=== PATIENT | female | born 1935 ===

== ENCOUNTER 2017-06-12 21:06 | Inpatient (IN) | payer MEDICAID ==
[2017-06-12 21:08] VITALS: BMI 17.9
[2017-06-12 21:36] LABS: BASO # 0.1 K/uL (0.0-0.2); BASO % 0.5 % (0.0-2.0); EOS # 0.8 K/uL (0.0-0.7); EOS % 7.7 % (0.0-4.0); LYMPH # 1.2 K/uL (1.0-4.3); MEAN CELL VOLUME 86.2 fl (81.0-99.0); MEAN CORPUSCULAR HGB CONC 31.3 g/dL (33.0-37.0); MONO # 1.4 K/uL (0.0-0.8); MONO % 13.6 % (0.0-10.0); NEUT # 6.7 K/uL (1.8-7.0); NEUT % 66.2 % (50.0-75.0); NRBC % 0.1 % (0.0-0.0); RED CELL DISTRIBUTION WIDTH 22.6 % (11.5-14.5); WHITE BLOOD COUNT 10.1 K/uL (4.8-10.8)
[2017-06-12 21:37] LABS: VENOUS BLOOD GAS BASE EXCESS 11.5 mmol/L (0.0-2.0); VENOUS BLOOD GAS PCO2 51 mmHg (40-60); VENOUS BLOOD PH 7.47 (7.32-7.43)
[2017-06-12] MEDS ORDERED: Vancomycin 1 gm/NS 200 ml 1 GM/200 ML BAG IVPB STA (21:49)
[2017-06-12] MEDS ORDERED: Gentamicin 80mg/50ml NS 80 MG/50 ML BAG IVPB STA (21:50)
[2017-06-12 21:56] LABS: PARTIAL THROMBOPLASTIN TIME 26.5 Seconds (25.6-37.1)
--- NOTE | 2017-06-12 22:01 | ED PDOC ---
HPI: Altered Mental Status Time Seen by Provider: 06/12/17 21:11 Chief Complaint (Nursing): Weakness/Neurological Deficit Chief Complaint (Provider): Weakness, confused History Per: Family (grandson) History/Exam Limitations: Clinical Condition (dementia) Onset/Duration Of Symptoms: Unknown Onset Of Symptoms: Cannot Confirm Onset Current Symptoms Are (Timing): Still Present Description Of Symptoms: Confused Associated Symptoms: Confused, Weakness Additional Complaint(s): The patient is a 82yo - female, with history of chronic kidney disease, end stage renal failure currently on dialysis on Monday, and Monday, TTP, CHF, arthritis, presents to the ED via EMS for evaluation of weakness and confusion. Prior charts reviewed and patient was recently discharged from [facility] after a 3 month stay. A HPI and ROS is unavailable from the patient due to her confused state as well as a history of dementia. Patient's grandson serves as primary historian and he reports the patient has been confused, weak and complaining of vague discomfort to her legs. She has a gastrostomy tube in place but has poor appetite; grandson reports noticing the patient has tactile fever and occasional cough but denies any vomiting or diarrhea. Grandson offers no other complaints. Past Medical History Reviewed: Historical Data, Nursing Documentation, Vital Signs Vital Signs: Last Vital Signs Temp 99.7 F H 06/12/17 21:52 Pulse 102 H 06/12/17 21:52 Resp 18 06/12/17 21:52 BP 139/79 06/12/17 21:52 Pulse Ox 98 06/12/17 21:52 - Medical History PMH: Anemia, Arthritis, CHF, Dementia, HTN, Peripheral Edema, End Stage Renal Disease, Chronic Kidney Disease - Surgical History Other surgeries: dialysis catheter - Family History Family History: States: No Known Family Hx, Unknown Family Hx - Living Arrangements Living Arrangements: With Family - Immunization History Hx Tetanus Toxoid Vaccination: No Hx Influenza Vaccination: No Hx Pneumococcal Vaccination: No - Home Medications Home Medications: Ambulatory Orders Medication Instructions Recorded Carboxymethylcellulose Sodium 1 drop OU QID 02/05/17 [Thera Tears] Latanoprost 0.005% Opht [Xalatan 1 drop OU DAILY 02/05/17 Opht] Mag&Al/Simet/Diphen/Lido [First 5 ml PO QID kit 03/01/17 Magic Mouthwash] Epoetin Tyrell [Procrit] 10,000 unit IV TTS ml 06/07/17 Paricalcitol [Zemplar] 1 mcg IV TTS ml 06/07/17 Aspirin [Aspirin Chewable] 81 mg PEG DAILY #30 ctb 06/09/17 Lisinopril [Prinivil] 5 mg PEG DAILY #30 tablet 06/09/17 Pantoprazole [Protonix] 40 mg PO DAILY #30 packet 06/09/17 - Allergies Allergies/Adverse Reactions: Allergies Allergy/AdvReac Type Severity Reaction Status Date / Time No Known Allergies Allergy Verified 03/04/17 01:13 Review of Systems Review Of Systems: ROS cannot be obtained secondary to pt's inabilty to answer questions. (ROS obtained from patient's grandson) Constitutional: Positive for: Weakness Gastrointestinal: Positive for: Other (decreased appetite). Negative for: Vomiting, Diarrhea Musculoskeletal: Positive for: Leg Pain Physical Exam - Reviewed Nursing Documentation Reviewed: Yes Vital Signs Reviewed: Yes - Physical Exam Appears: Positive for: No Acute Distress Head Exam: Positive for: ATRAUMATIC, NORMAL INSPECTION, NORMOCEPHALIC Skin: Positive for: Warm, Dry. Negative for: Diaphoresis Eye Exam: Positive for: Normal appearance Neck: Positive for: Supple Cardiovascular/Chest: Positive for: Tachycardia Respiratory: Positive for: Normal Breath Sounds. Negative for: Respiratory Distress Gastrointestinal/Abdominal: Positive for: Soft. Negative for: Tenderness Back: Positive for: Normal Inspection Extremity: Positive for: Normal ROM, Swelling (mild edema and warmth noted to left knee) Neurologic/Psych: Positive for: Alert, Oriented (x 1). Negative for: Motor/ Sensory Deficits - Laboratory Results Result Diagrams: 06/12/17 21:33 06/12/17 22:04 - ECG ECG: Positive for: Interpreted By Me, Viewed By Me ECG Rhythm: Positive for: Sinus Tachycardia, Left Bundle Branch Block Rate: 101 (at 21:43) O2 Sat by Pulse Oximetry: 98 (RA) Pulse Ox Interpretation: Normal Medical Decision Making Medical Decision Making: Time: 2117 Impression: 82yo female with weakness, confusion Plan: -- Labs -- EKG -- Gentamicin 80mg/50ml NS IVPB -- Vancomycin 1000mg/200 ml NS IVPB Reassess Time: 23:45 --Labs and XRay were viewed and showed no clinically significant abnormalities. --Patient does not meet criteria for sepsis but on provider's opinion she will be admitted for possible sepsis considering risk factors including recent hospital visit and dialysis catheter --Patient has remained hemodynamically stable and afebrile since arrival to ED. --Case was discussed with Dr. Mahoney who is covering Dr. Morel's patients. Clinical Impression: Sepsis and dialysis patient Condition: Fair Scribe Attestation: Documented by La As[place] and Yo Carrasquillo acting as a scribe for Herrera Feliz MD. Provider Attestation: All medical record entries made by the Scribe were at my direction and personally dictated by me. I have reviewed the chart and agree that the record accurately reflects my personal performance of the history, physical exam, medical decision making, and the department course for this patient. I have also personally directed, reviewed, and agree with the discharge instructions and disposition. Disposition - Clinical Impression Clinical Impression: Sepsis, ESRD (end stage renal disease) on dialysis - Patient ED Disposition Is Patient to be Admitted: Yes Discussed With : Sher Mahoney Doctor Will See Patient In The: Hospital Counseled Patient/Family Regarding: Studies Performed, Diagnosis, Need For Followup, Rx Given - Disposition Disposition Time: 23:45 Condition: FAIR - Pt Status Changed To: Hospital Disposition Of: Inpatient - Admit Certification Admit to Inpatient:: After my assessment, the patient will require hospitalization for at least two midnights. This is because of the severity of symptoms shown, intensity of services needed, and/or the medical risk in this patient being treated as an outpatient. - POA Present On Arrival: Pressure Ulcer Addendum Addendum: 06/13/17 01:52 --Patient noted to have stage 1/stage 2 sacral cubidal breakdown of the skin
[2017-06-12 22:12] LABS: ALB/GLOB RATIO 0.9 (1.0-2.1); BILIRUBIN,TOTAL 0.5 mg/dl (0.2-1.3); CALCIUM 9.6 mg/dL (8.4-10.2); URIC ACID 3.6 mg/Dl (2.2-7.5)
[2017-06-12 22:16] LABS: POTASSIUM 4.4 MMOL/L (3.6-5.0)
--- NOTE | 2017-06-13 08:00 | CARD ---
APPROVED REPORT EKG Measurement Heart [id number] <Conclusion> Sinus tachycardia Possible Left atrial enlargement Left axis deviation Left bundle branch block Abnormal ECG
--- NOTE | 2017-06-13 09:46 | RAD ---
HISTORY: AMS COMPARISON: No prior. FINDINGS: The right-sided dual lumen central venous catheter terminates in the SVC. LUNGS: The lungs are well inflated. There is mild pulmonary venous congestion PLEURA: No significant pleural effusion identified, no pneumothorax apparent. CARDIOVASCULAR: Normal. OSSEOUS STRUCTURES: No significant abnormalities. VISUALIZED UPPER ABDOMEN: Normal. OTHER FINDINGS: None. IMPRESSION: Mild pulmonary venous congestion.
[2017-06-13] MEDS: Artificial Tears Opht Soln OU SCH ×4 (10:00→21:47)
[2017-06-13] MEDS: Mag&Al/Simet/Diphen/Lido 237 ML KIT PO SCH ×4 (10:00→21:46)
[2017-06-13 12:29] LABS: HEMATOCRIT 35.7 % (34.0-47.0); MEAN CELL VOLUME 86.2 fl (81.0-99.0); MEAN CORPUSCULAR HEMOGLOBIN 26.4 pg (27.0-31.0); MEAN CORPUSCULAR HGB CONC 30.6 g/dL (33.0-37.0); RED CELL DISTRIBUTION WIDTH 21.8 % (11.5-14.5); WHITE BLOOD COUNT 10.1 K/uL (4.8-10.8)
[2017-06-13 12:42] LABS: POTASSIUM 4.1 MMOL/L (3.6-5.0)
[2017-06-13] MEDS: Latanoprost 0.005% Opht SOUTION OU SCH (13:18)
[2017-06-13] MEDS: Pantoprazole 40 mg Susp UD PO SCH (13:19)
[2017-06-13] MEDS: Enoxaparin 30 mg Syringe SC SCH (13:47)
--- NOTE | 2017-06-13 15:18 | CP.PCM.HP ---
History of Present Illness - History of Present Illness History of Present Illness: 82 YO F w/ h/o CKD, ESRD currently on dialysis on , , and Monday, systolic CHF w/ EF 10% was admitted for confusion and weakness. Patient was recently discharged from [facility]. Was bought to the hospital by her grandson which was concerned because she has been confused weak and complaining of vague discomfort to her her legs. Patient has a gastrostomy tube but has poor appetite. Present on Admission - Present on Admission Any Indicators Present on Admission: Yes Review of Systems - Review of Systems All systems: reviewed and no additional remarkable complaints except Past Patient History - Past Medical History & Family History Past Medical History?: Yes - Past Social History Smoking Status: Former Smoker - CARDIAC Hx Congestive Heart Failure: Yes Hx Hypertension: Yes Hx Peripheral Edema: Yes - PULMONARY Hx Respiratory Disorders: No - NEUROLOGICAL Hx Dementia: Yes - HEENT Hx HEENT Problems: Yes - RENAL Hx Chronic Kidney Disease: Yes - ENDOCRINE/METABOLIC Hx Endocrine Disorders: Yes (enlarged thyroid) Hx Diabetes Mellitus Type 2: Yes - HEMATOLOGICAL/ONCOLOGICAL Hx Anemia: Yes - INTEGUMENTARY Hx Dermatological Problems: Yes (generalized pruritus) - MUSCULOSKELETAL/RHEUMATOLOGICAL Hx Arthritis: Yes - GASTROINTESTINAL Hx Gastrointestinal Disorders: No - GENITOURINARY/GYNECOLOGICAL Hx Genitourinary Disorders: No - PSYCHIATRIC Hx Substance Use: No - SURGICAL HISTORY Hx Surgeries: Yes Other/Comment: 1993 THYROID SX - ANESTHESIA Hx Anesthesia: Yes Hx Anesthesia Reactions: No Hx Malignant Hyperthermia: No Meds Allergies/Adverse Reactions: Allergies Allergy/AdvReac Type Severity Reaction Status Date / Time No Known Allergies Allergy Verified 03/04/17 01:13 Physical Exam - Constitutional Appears: Cachectic - Head Exam Head Exam: ATRAUMATIC, NORMAL INSPECTION - Respiratory Exam Respiratory Exam: Decreased Breath Sounds - GI/Abdominal Exam GI & Abdominal Exam: Normal Bowel Sounds - Back Exam Back exam: absent: vertebral tenderness - Neurological Exam Neurological exam: Alert Additional comments: oriented x 1 Results - Vital Signs Recent Vital Signs: Last Vital Signs Temp 98 F 06/13/17 12:48 Pulse 82 06/13/17 12:48 Resp 18 06/13/17 12:48 BP 133/78 06/13/17 12:48 Pulse Ox 99 06/13/17 12:48 - Labs Result Diagrams: 06/13/17 12:24 06/13/17 12:24 Labs: Laboratory Results - last 24 hr 06/12/17 06/12/17 06/12/17 21:33 21:33 21:34 WBC 10.1 RBC 4.30 Hgb 11.6 L Hct 37.0 MCV 86.2 MCH 27.0 MCHC 31.3 L RDW 22.6 H Plt Count 189 MPV 10.0 Neut % (Auto) 66.2 Lymph % (Auto) 12.0 L [place] % (Auto) 13.6 H Eos % (Auto) 7.7 H Baso % (Auto) 0.5 Neut # 6.7 Lymph # 1.2 [place] # 1.4 H Eos # 0.8 H Baso # 0.1 PT 11.1 INR 0.1 L APTT 26.5 pO2 22 L VBG pH 7.47 H VBG pCO2 51 VBG HCO3 32.4 VBG Total CO2 38.7 H VBG O2 Sat (Calc) 42.4 VBG Base Excess 11.5 H VBG Potassium 4.5 Sodium 134.0 Chloride 96.0 L Glucose 205 H Lactate 2.2 H FiO2 21.0 Potassium Carbon Dioxide Anion Gap BUN Creatinine Est GFR ( Amer) Est GFR (Non-Af Amer) POC Glucose (mg/dL) Random Glucose Lactic Acid Uric Acid Calcium Total Bilirubin AST ALT Alkaline Phosphatase Total Protein Albumin Globulin Albumin/Globulin Ratio Venous Blood Potassium 4.5 06/12/17 06/12/17 06/13/17 21:45 22:04 03:08 WBC RBC Hgb Hct MCV MCH MCHC RDW Plt Count MPV Neut % (Auto) Lymph % (Auto) [place] % (Auto) Eos % (Auto) Baso % (Auto) Neut # Lymph # [place] # Eos # Baso # PT INR APTT pO2 VBG pH VBG pCO2 VBG HCO3 VBG Total CO2 VBG O2 Sat (Calc) VBG Base Excess VBG Potassium Sodium 136 Chloride 92 L Glucose Lactate FiO2 Potassium 4.4 Carbon Dioxide 31 H Anion Gap 17 BUN 75 H Creatinine 4.2 H Est GFR ( Amer) 12 Est GFR (Non-Af Amer) 10 POC Glucose (mg/dL) 196 H Random Glucose 181 H Lactic Acid 1.1 Uric Acid 3.6 Calcium 9.6 Total Bilirubin 0.5 AST 64 H D ALT 46 Alkaline Phosphatase 292 H Total Protein 7.0 Albumin 3.4 L Globulin 3.6 Albumin/Globulin Ratio 0.9 L Venous Blood Potassium 06/13/17 06/13/17 12:24 12:24 WBC 10.1 RBC 4.15 Hgb 10.9 L Hct 35.7 MCV 86.2 MCH 26.4 L MCHC 30.6 L RDW 21.8 H Plt Count 153 MPV Neut % (Auto) Lymph % (Auto) [place] % (Auto) Eos % (Auto) Baso % (Auto) Neut # Lymph # [place] # Eos # Baso # PT INR APTT pO2 VBG pH VBG pCO2 VBG HCO3 VBG Total CO2 VBG O2 Sat (Calc) VBG Base Excess VBG Potassium Sodium 137 Chloride 94 L Glucose Lactate FiO2 Potassium 4.1 Carbon Dioxide 32 H Anion Gap 15 BUN 77 H Creatinine 5.1 H Est GFR ( Amer) 10 Est GFR (Non-Af Amer) 8 POC Glucose (mg/dL) Random Glucose 119 H Lactic Acid Uric Acid Calcium 10.0 Total Bilirubin AST ALT Alkaline Phosphatase Total Protein Albumin Globulin Albumin/Globulin Ratio Venous Blood Potassium Assessment & Plan (1) ESRD (end stage renal disease) on dialysis Status: Acute Comment: Nephro consult appreciated. - Continue with nephro reccomendation (2) CHF (congestive heart failure) Status: Acute Comment: Systolic HF , EF: 10% (3) Diverticulosis Status: Acute (4) Malnutrition Status: Acute Comment: peg tube in place
--- NOTE | 2017-06-13 22:59 | CP.PCM.CON ---
History of Present Illness - History of Present Illness History of Present Illness: pt is seen and examined this morning at 9.35 Am, full consult is dictated # [id number] d/w Nurse practioner in rounds Past Patient History - Past Medical History & Family History Past Medical History?: Yes - Past Social History Smoking Status: Former Smoker - CARDIAC Hx Congestive Heart Failure: Yes Hx Hypertension: Yes Hx Peripheral Edema: Yes - PULMONARY Hx Respiratory Disorders: No - NEUROLOGICAL Hx Dementia: Yes - HEENT Hx HEENT Problems: Yes - RENAL Hx Chronic Kidney Disease: Yes - ENDOCRINE/METABOLIC Hx Endocrine Disorders: Yes (enlarged thyroid) Hx Diabetes Mellitus Type 2: Yes - HEMATOLOGICAL/ONCOLOGICAL Hx Anemia: Yes - INTEGUMENTARY Hx Dermatological Problems: Yes (generalized pruritus) - MUSCULOSKELETAL/RHEUMATOLOGICAL Hx Arthritis: Yes - GASTROINTESTINAL Hx Gastrointestinal Disorders: No - GENITOURINARY/GYNECOLOGICAL Hx Genitourinary Disorders: No - PSYCHIATRIC Hx Substance Use: No - SURGICAL HISTORY Hx Surgeries: Yes Other/Comment: 1993 THYROID SX - ANESTHESIA Hx Anesthesia: Yes Hx Anesthesia Reactions: No Hx Malignant Hyperthermia: No Meds Allergies/Adverse Reactions: Allergies Allergy/AdvReac Type Severity Reaction Status Date / Time No Known Allergies Allergy Verified 03/04/17 01:13 - Medications Medications: Current Medications Artificial Tears (Artificial Tears) 1 drop OU QID [facility] Last Admin: 06/13/17 21:47 Dose: 1 drop Aspirin (Aspirin Chewable) 81 mg PEG DAILY [facility] Last Admin: 06/13/17 13:16 Dose: 81 mg Enoxaparin Sodium (Lovenox) 30 mg SC DAILY [facility] PRN Reason: Protocol Last Admin: 06/13/17 13:47 Dose: 30 mg Epoetin Tyrell (Procrit) 10,000 unit IV TTS [facility] Home Med (Paricalcitol [Zemplar]) 1 mcg IV TTS [facility] Latanoprost (Xalatan Opht) 1 drop OU DAILY [facility] Last Admin: 06/13/17 13:18 Dose: 1 drop Pantoprazole Sodium (Protonix Susp) 40 mg PO DAILY [facility] Last Admin: 06/13/17 13:19 Dose: 40 mg Saliva Substitute (First Magic Mouthwash) 5 ml PO QID [facility] Last Admin: 06/13/17 21:46 Dose: Not Given Results - Vital Signs Recent Vital Signs: Last Vital Signs Temp 98 F 06/13/17 20:29 Pulse 93 H 06/13/17 20:29 Resp 18 06/13/17 20:29 BP 134/70 06/13/17 20:29 Pulse Ox 99 06/13/17 20:29 - Labs Result Diagrams: 06/13/17 12:24 06/13/17 12:24 Labs: Laboratory Results - last 24 hr 06/12/17 06/13/17 06/13/17 21:45 03:08 11:05 WBC RBC Hgb Hct MCV MCH MCHC RDW Plt Count Sodium Potassium Chloride Carbon Dioxide Anion Gap BUN Creatinine Est GFR ( Amer) Est GFR (Non-Af Amer) POC Glucose (mg/dL) 196 H Random Glucose Lactic Acid 1.1 Calcium Hep Bs Antigen Negative Hep Bs Antibody Hepatitis C Antibody Negative 06/13/17 06/13/17 06/13/17 11:05 12:24 12:24 WBC 10.1 RBC 4.15 Hgb 10.9 L Hct 35.7 MCV 86.2 MCH 26.4 L MCHC 30.6 L RDW 21.8 H Plt Count 153 Sodium 137 Potassium 4.1 Chloride 94 L Carbon Dioxide 32 H Anion Gap 15 BUN 77 H Creatinine 5.1 H Est GFR ( Amer) 10 Est GFR (Non-Af Amer) 8 POC Glucose (mg/dL) Random Glucose 119 H Lactic Acid Calcium 10.0 Hep Bs Antigen Hep Bs Antibody Positive Hepatitis C Antibody
[2017-06-14] MEDS: EPOETIN ALFA 10,000 UNIT/ML ML IV SCH (03:24)
[2017-06-14] MEDS: Mag&Al/Simet/Diphen/Lido 237 ML KIT PO SCH ×4 (08:52→21:59)
[2017-06-14] MEDS: Artificial Tears Opht Soln OU SCH ×4 (08:52→21:59)
[2017-06-14] MEDS: Pantoprazole 40 mg Susp UD PO SCH (08:53)
[2017-06-14] MEDS: Latanoprost 0.005% Opht SOUTION OU SCH (08:54)
--- NOTE | 2017-06-14 09:54 | CP.PCM.PN ---
Subjective - Date & Time of Evaluation Date of Evaluation: 06/14/17 Time of Evaluation: 09:53 - Subjective Subjective: Patient seen and examined at bedside. Patient is seen resting comfortably. No overnight events reported. Patient is expected to go to [facility] tomorrow after her dialysis. Objective - Vital Signs/Intake and Output Vital Signs (last 24 hours): Temp Pulse Resp BP Pulse Ox 98.2 F 94 H 20 119/70 94 L 06/14/17 08:00 06/14/17 08:00 06/14/17 08:00 06/14/17 08:00 06/14/17 08:00 - Medications Medications: Current Medications Artificial Tears (Artificial Tears) 1 drop OU QID [facility] Last Admin: 06/14/17 08:52 Dose: 1 drop Aspirin (Aspirin Chewable) 81 mg PEG DAILY [facility] Last Admin: 06/14/17 08:52 Dose: 81 mg Enoxaparin Sodium (Lovenox) 30 mg SC DAILY [facility] PRN Reason: Protocol Last Admin: 06/13/17 13:47 Dose: 30 mg Epoetin Tyrell (Procrit) 10,000 unit IV TTS [facility] Last Admin: 06/14/17 03:24 Dose: 10,000 unit Home Med (Paricalcitol [Zemplar]) 1 mcg IV TTS [facility] Latanoprost (Xalatan Opht) 1 drop OU DAILY [facility] Last Admin: 06/14/17 08:54 Dose: 1 drop Pantoprazole Sodium (Protonix Susp) 40 mg PO DAILY [facility] Last Admin: 06/14/17 08:53 Dose: 40 mg Saliva Substitute (First Magic Mouthwash) 5 ml PO QID [facility] Last Admin: 06/14/17 08:52 Dose: Not Given - Labs Labs: 06/13/17 12:24 06/13/17 12:24 PT 11.1 Seconds (9.8-13.1) 06/12/17 21:33 INR 0.1 (0.9-1.2) L 06/12/17 21:33 APTT 26.5 Seconds (25.6-37.1) 06/12/17 21:33 - Constitutional Appears: Cachectic - Head Exam Head Exam: NORMAL INSPECTION - Eye Exam Eye Exam: Normal appearance - Respiratory Exam Respiratory Exam: NORMAL BREATHING PATTERN. absent: Rales, Rhonchi - Cardiovascular Exam Cardiovascular Exam: REGULAR RHYTHM, +S1, +S2 - GI/Abdominal Exam GI & Abdominal Exam: Soft. absent: Tenderness - Neurological Exam Neurological Exam: Alert, Awake, CN II-XII Intact Assessment and Plan (1) ESRD (end stage renal disease) on dialysis Status: Acute (2) CHF (congestive heart failure) Status: Acute (3) Diverticulosis Status: Acute (4) Malnutrition Status: Acute
--- NOTE | 2017-06-14 10:28 | PQF CHF ---
This form is a permanent part of the medical record 06/14/17 Dr Mahoney, Please clarify the acuity of Systolic CHF. Documentation of a history of Systolic CHF. CXR: Mild pulmonary venous congestion. Medication includes: Lisinopril. Hemodialysis performed. Clarification of your documentation is requested to better reflect the severity of illness and intensity of treatment of your patient. Indicators present [x] Diagnosis of CHF and/or history of CHF [] BNP > 200 [x] Imaging Finding of Mild pulmonary venous congestion on CXR. [] Fluid/Volume Overload [] Pitting edema [] Ejection Fraction < 40% (Indicative of Systolic Heart Failure) [] Ejection Fraction > 40% (Indicative of Diastolic Heart Failure) [] Dyspnea / Orthopenea / Paroxysmal Nocturnal Dyspnea [] Other: Location in the medical record that reflects the above clinical findings: [] Treatment Provided: [] PHYSICIAN'S RESPONSE Based on your medical judgment of the clinical indicators outlined above, are you treating this patient for a known or suspected: [] Chronic Systolic CHF [] Acute on Chronic Systolic CHF [] Other, please indicate: [] [] If Unable to Determine, please check the box, sign and date. Present On Admission (POA) Indicator: [] Present at the time of admission [] Not present at the time of admission [] Clinically Undetermined In responding to this query, please exercise your independent professional judgment. The fact that a question is asked does not imply that any particular answer is desired or expected. Thank you for your clarification on this documentation. If you have any questions please call:ext [phone] * Thank you, Yeny Rolon RN CDMP MTDD
--- NOTE | 2017-06-14 10:44 | PQF GENQUE ---
This form is a permanent part of the medical record 06/14/17 Dr. Mahoney, Please clarify the appropriate diagnosis for this patient. ER MD has documented the following information with no mention of this diagnosis in your documentation. Please indicate in your next progress note and /or discharge summary your agreement or provide clarification that this diagnosis is not a current condition. Diagnosis: POSSIBLE SEPSIS Documented by: ER MD Admitted with weakness, confusion, vague leg pains and occasional cough. History of dementia, ESRD and CHF. ER MD : Mild edema and warmth noted to the left knee . ER MD: --Patient does not meet criteria for sepsis but on provider's opinion she will be admitted for possible sepsis considering risk factors including recent hospital visit and dialysis catheter TEMP max 99.7, HR 108-> 81-94, BP stable, WBC 10.1, Lactate 2.2->1.1 Treated with Gentamycin and Vancomycin in the ER Clarification of your documentation is requested to better reflect the severity of illness and intensity of treatment of your patient. Indicators present [] Specify: [] [] Specify: [] [] Specify: [] [] Specify: [] Location in the medical record that reflects the above clinical findings: [] Treatment Provided: [] PHYSICIAN'S RESPONSE Based on your medical judgment of the clinical indicators outlined above please clarify the following: [] Practitioner response [] If unable to determine, please check the box, sign and date. Present On Admission (POA) Indicator: [] Present at the time of admission [] Not present at the time of admission [] Clinically Undetermined In responding to this query, please exercise your independent professional judgment. The fact that a question is asked does not imply that any particular answer is desired or expected. Thank you for your clarification on this documentation. If you have any questions please call:ext [phone] * Thank you, Yeny Rolon RN [facility]
--- NOTE | 2017-06-14 11:51 | CON ---
RENAL CONSULTATION LOCATION: The patient is located in room 450, bed 1. REQUESTED BY: Dr. Sher Mahoney. REASON FOR RENAL CONSULTATION: End-stage renal disease, for continuation of hemodialysis. HISTORY OF PRESENT ILLNESS: Mrs. 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 1 week x4 doses in April in [facility] by Dr. Villanueva, who was recently discharged from the [facility] to home on Monday and went to the dialysis in the [facility] in [facility] and the patient was brought in by the family with again altered mental status. The patient was seen this morning. The patient is not in any acute distress. The patient is responding to the verbal stimuli and is following simple commands. 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 weekly x4 doses in 04/2017, end-stage renal disease, on hemodialysis 3 times a week, Monday, , Monday for the last 3-1/2 to 4 months and also sacral decubiti. PAST SURGICAL HISTORY: Multiple Perma-Cath placements. ALLERGIES: NO KNOWN DRUG ALLERGIES. FAMILY HISTORY: Not significant. She has a very supportive granddaughter, grandson and a daughter. SOCIAL HISTORY: No smoking. No alcohol or drugs. The patient is bedridden since 01/2017 since she was admitted this year in January to [facility]. CURRENT MEDICATIONS: Given as follows: Artificial tears, aspirin 81 mg daily and Lovenox 30 mg subcutaneous daily and Epogen 10,000 units 3 times a week and Protonix 40 mg p.o. daily and Xalatan eye drops. REVIEW OF SYSTEMS: Significant for altered mental status and also significant for the sacral decubitus. All other review of systems are reviewed as per HPI. PHYSICAL EXAMINATION GENERAL: Mrs. Suzie Bellamy is an 82-year-old elderly female, moderately built and moderately nourished, not in any acute distress. VITAL SIGNS: Blood pressure this morning 106/69, pulse 81, respirations 16, temperature 98.5, saturation 100%. Height 5 feet, 3 inches and weight is 125 pounds. HEENT: Pupils normal and reactive to light and accommodation. Conjunctivae pink. Sclerae anicteric. Legally blind. Tongue is moist. Trachea is midline. NECK: No thyroid enlargement. CARDIOVASCULAR SYSTEM: [place] at the sixth intercostal space, midclavicular line. S1 and S2 audible. No murmur. No gallop. LUNGS: Symmetric on both sides. Bilateral breath sounds present. Clear to auscultation. ABDOMEN: Normal in appearance, soft, tympanic. No guarding. No rigidity. No hepatosplenomegaly. Status post PEG tube placement. CENTRAL NERVOUS SYSTEM: The patient is arousable, following 1 or 2 simple commands. Moving all extremities. Sensory system is grossly within normal limits. Motor system: Moving all extremities. Deep tendon reflexes normal and dorsalis pedis pulses are feeble. No cyanosis. No clubbing. No edema. The patient is bedridden for the last 4 months. The patient is also having sacral decubiti. LABORATORY DATA: Her laboratory data include as follows, as of 06/12/2017: WBC 10.1, hemoglobin 11.6, hematocrit is 37, platelets 189. PT 11.1, PTT 26.7 VBG: PH 7.47, pO2 22, pCO2 51. Sodium 134, chloride 96, glucose 205, lactic acid 2.2. As of 06/12/2017, CMP: Sodium 136, potassium 4.4, chloride 92, CO2 of 31, BUN 75, creatinine 4.2 and glucose 196. Lactic acid as of 06/13/2017 is 1.1. Uric acid 3.6, calcium 9.6, total bili 0.5. AST 64, ALT 46, alkaline phosphatase 292, total protein 7.0, albumin is 3.4. The other laboratory data as of 06/13/2017: Hepatitis B surface antigen negative, surface antibody is positive. Hep C antibody is negative. Sodium 137, potassium 4.1, chloride 94, CO2 of 32, BUN 77, creatinine 5.1, glucose 119, calcium is 10. CBC: WBC 10.1, hemoglobin 10.9, hematocrit is 35.7, platelets 153. ASSESSMENT: In summary, Mrs. Suzie Bellamy is an 82-year-old elderly female with a history of longstanding hypertension; rheumatoid arthritis and congestive heart failure; cardiomyopathy, respiratory failure, status post intubation x2 in the last 4 months for respiratory failure during plasmapheresis and end-stage renal disease, on hemodialysis; anemia; thrombocytopenia, status post plasmapheresis x3 sessions and status post rituximab q. weekly x 4 doses in 04/[address] Eamon Villanueva. The patient was discharged last week on Monday from [facility] after 3 months of hospitalization and the patient was started on hemodialysis in the outpatient hemodialysis unit in [facility] and dialyzed on Monday and now, the patient was brought in yesterday with change in mental status. 1. 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 Continue hemodialysis 3 times a week. The patient's family refused biopsy in the past. 2. Hypertension. Blood pressure stable. Not on any hypertensive medications. We will hold WILLIAN inhibitors due to hyperkalemia in the past. 3. Status post anemia. Hemoglobin and hematocrit are improving. Continue Epogen during dialysis and hold for hemoglobin more than 11 and we will hold vitamin D supplement at this time during dialysis due to hyperkalemia last week. 4. Status post thrombocytopenia. 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 Status post rituximab and plasmapheresis x3 sessions. The patient's platelets are stable at this time. Continue to monitor platelets and follow up with operations manager station, Dr. Eamon Villanueva. The patient is stable from the renal standpoint. The patient may be able to be discharged after dialysis. Thank you for allowing me to participate in our patient's care. Eddie Augustine MD
[2017-06-14] MEDS: Enoxaparin 30 mg Syringe SC SCH (12:00)
--- NOTE | 2017-06-14 13:58 | CP.PCM.CON ---
History of Present Illness - History of Present Illness History of Present Illness: 82 YO F w/ h/o CKD, ESRD currently on dialysis on , , and Monday, systolic CHF w/ EF 10% was admitted for confusion and weakness. Patient was recently discharged from [facility]. Was bought to the hospital by her grandson which was concerned because she has been confused weak and complaining of vague discomfort to her her legs. Patient has a gastrostomy tube but has poor appetite. bLOOD C/S POSITIVE X 2 STARTED ON vANCO mAY NEED hd CATHETER REMOVAL/ CHANGE CONSIDER ECHO Review of Systems - Review of Systems Systems not reviewed;Unavailable: Altered Mental Status - Constitutional Constitutional: As Per HPI - EENT Eyes: absent: As Per HPI, Blind Spots, Blurred Vision, Change in Vision, Decreased Night Vision, Diplopia, Discharge, Dry Eye, Exophthalmos, Floaters, Irritation, Itchy Eyes, Loss of Peripheral Vision, Pain, Photophobia, Requires Corrective Lenses, Sees Flashes, Spots in Vision, Tunnel Vision, Other Visual Disturbances, Loss of Vision, Other Ears: absent: As Per HPI, Decreased Hearing, Ear Discharge, Ear Pain, Tinnitus, Abnormal Hearing, Disequilibrium, Dizziness, Other Nose/Mouth/Throat: absent: As Per HPI, Epistaxis, Nasal Congestion, Nasal Discharge, Nasal Obstruction, Nasal Trauma, Nose Pain, Post Nasal Drip, Sinus Pain, Sinus Pressure, Bleeding Gums, Change in Voice, Dental Pain, Dry Mouth, Dysphagia, Halitosis, Hoarsness, Lip Swelling, Mouth Lesions, Mouth Pain, Odynophagia, Sore Throat, Throat Swelling, Tongue Swelling, Facial Pain, Neck Pain, Neck Mass, Other - Breasts Breasts: absent: As Per HPI, Change in Shape, Mass, Pain, Nipple Discharge, Nipple Inversion, Skin Changes, Swelling, Other - Cardiovascular Cardiovascular: absent: As Per HPI, Acrocyanosis, Chest Pain, Chest Pain at Rest , Chest Pain with Activity, Claudication, Diaphoresis, Dyspnea, Dyspnea on Exertion, Edema, Irregular Heart Rhythm, Pain Radiating to Arm/Neck/Jaw, Leg Edema, Leg Ulcers, Lightheadedness, Orthopnea, Palpitations, Paroxysmal Nocturnal Dyspnea, Pedal Edema, Radiating Pain, Rapid Heart Rate, Slow Heart Rate, Syncope, Other - Respiratory Respiratory: absent: As Per HPI, Cough, Dyspnea, Hemoptysis, Dyspnea on Exertion , Wheezing, Snoring, Stridor, Pain on Inspiration, Chest Congestion, Excessive Mucous Production, Change in Mucous Color, Pain with Coughing, Other - Gastrointestinal Gastrointestinal: absent: As Per HPI, Abdominal Pain, Belching, Bloating, Change in Bowel Habits, Change in Stool Character, Coffee Ground Emesis, Constipation, Cramping, Diarrhea, Dyspepsia, Dysphagia, Early Satiety, Excessive Flatus, Fecal Incontinence, Heartburn, Hematemesis, Hematochezia, Loose Stools, Melena, Nausea, Odynophagia, Temesmus, Vomiting, Other - Genitourinary Genitourinary: absent: As Per HPI, Change in Urinary Stream, Difficulty Urinating, Dysuria, Flank Pain, Hematuria, Pyuria, Nocturia, Urinary Incontinence, Urinary Frequency, Urinary Hesitance, Urinary Urgency, Voiding Freq/Small Amts, Freq UTI, Hx Renal/Bladder Calculi, Hx /Renal Surgery, Bladder Distension, Other - Reproductive: Female Reproductive:Female: absent: As Per HPI, Amenorrhea, Amenorrhea/ Control, Currently Menstual, Cycle <21 Days, Cycle >35 Days, Cycle Variable, Menses 1-7 Days, Menses >/= 8 Days, Menses Variable, Cycle > 4 Weeks Between, No Menses for 6 Months, Heavy Menses, Light Menses, Normal Menses, Spotting Between Cycles , S/P Hysterectomy, Menopausal, Post Menopausal, Premenarche, Abnormal Vaginal Bleeding, Dysmenorrhea, Dyspareunia, Genital Lesions, Genital Pruritis, Pelvic Pain, Prolapse Symptoms, Sexual Dysfunction, Vaginal Discharge, Vaginal Dryness , Vaginal Odor, Vaginal Pruritis, Other - Menstruation Menstruation: absent: As Per HPI, Amenorrhea, Amenorrhea/ Control, Currently Menstual, Cycle <21 Days, Cycle >35 Days, Cycle Variable, Menses 1-7 Days, Menses >/= 8 Days, Menses Variable, Cycle > 4 Weeks Between, No Menses for 6 Months, Heavy Menses, Light Menses, Normal Menses, Spotting Between Cycles , S/P Hysterectomy, Menopausal, Post Menopausal, Premenarche, Abnormal Vaginal Bleeding, Dysmenorrhea, Other - Musculoskeletal Musculoskeletal: absent: As Per HPI, Abnormal Gait, Arthralgias, Atrophy, Back Pain, Deformity, Joint Swelling, Limited Range of Motion, Loss of Height, Muscle Cramps, Muscle Weakness, Myalgias, Neck Pain, Numbness, Radiating Pain into Limb, Stiffness, Tingling, Other - Integumentary Integumentary: absent: As Per HPI, Acne, Alopecia, Bleeding Lesions, Change in Hair, Change in Nails, Change in Pigmentation, Changing Lesions, Dry Skin, Erythema, Furuncle, Hirsutism, Lesions, New Lesions, Non-Healing Lesions, Photosensitivity, Pruritus, Rash, Skin Pain, Skin Ulcer, Sores, Striae, Swelling , Unusual Bruising, Wounds, Jaundice, Other - Neurological Neurological: absent: As Per HPI, Abnormal Gait, Abnormal Hearing, Abnormal Movements, Abnormal Speech, Behavioral Changes, Burning Sensations, Confusion, Convulsions, Disequilibrium, Dizziness, Numbness, Focal Weakness, Frequent Falls , Headaches, Lack of Coordination, Loss of Vision, Memory Loss, Paresthesias, Radicular Pain, Restless Legs, Sensory Deficit, Syncope, Tingling, Tremor, Vertigo, Weakness, Other Visual Disturbances, Other - Psychiatric Psychiatric: absent: As Per HPI, Abnormal Sleep Pattern, Anhedonia, Anxiety, Auditory Hallucinations, Behavioral Changes, Change in Appetite, Change in Libido, Confusion, Depression, Difficulty Concentrating, Hallucinations, Homicidal Ideation, Hopelessness, Irritability, Memory Loss, Mood Swings, Panic Attacks, Paranoia, Suicidal Ideation, Visual Hallucinations, Tactile Hallucinations, Other - Endocrine Endocrine: absent: As Per HPI, Change in Body Appearance, Change in Libido, Cold Intolorance, Deepening of Voice, Excessive Sweating, Fatigue, Flushing, Heat Intolorance, Increase in Ring/Shoe/Hat Size, Palpitations, Polydipsia, Polyphagia, Polyuria, Other - Hematologic/Lymphatic Hematologic: absent: As Per HPI, Easy Bleeding, Easy Bruising, Lymphadenopathy, Other Past Patient History - Past Medical History & Family History Past Medical History?: Yes - Past Social History Smoking Status: Former Smoker - CARDIAC Hx Congestive Heart Failure: Yes Hx Hypertension: Yes Hx Peripheral Edema: Yes - PULMONARY Hx Respiratory Disorders: No - NEUROLOGICAL Hx Dementia: Yes - HEENT Hx HEENT Problems: Yes - RENAL Hx Chronic Kidney Disease: Yes - ENDOCRINE/METABOLIC Hx Endocrine Disorders: Yes (enlarged thyroid) Hx Diabetes Mellitus Type 2: Yes - HEMATOLOGICAL/ONCOLOGICAL Hx Anemia: Yes - INTEGUMENTARY Hx Dermatological Problems: Yes (generalized pruritus) - MUSCULOSKELETAL/RHEUMATOLOGICAL Hx Arthritis: Yes - GASTROINTESTINAL Hx Gastrointestinal Disorders: No - GENITOURINARY/GYNECOLOGICAL Hx Genitourinary Disorders: No - PSYCHIATRIC Hx Substance Use: No - SURGICAL HISTORY Hx Surgeries: Yes Other/Comment: 1993 THYROID SX - ANESTHESIA Hx Anesthesia: Yes Hx Anesthesia Reactions: No Hx Malignant Hyperthermia: No Meds Allergies/Adverse Reactions: Allergies Allergy/AdvReac Type Severity Reaction Status Date / Time No Known Allergies Allergy Verified 03/04/17 01:13 - Medications Medications: Current Medications Artificial Tears (Artificial Tears) 1 drop OU QID [facility] Last Admin: 06/14/17 12:00 Dose: 1 drop Aspirin (Aspirin Chewable) 81 mg PEG DAILY [facility] Last Admin: 06/14/17 08:52 Dose: 81 mg Doxercalciferol (Hectorol) 4 mcg IV TTS [facility] Enoxaparin Sodium (Lovenox) 30 mg SC DAILY [facility] PRN Reason: Protocol Last Admin: 06/14/17 12:00 Dose: 30 mg Epoetin Tyrell (Procrit) 10,000 unit IV TTS [facility] Last Admin: 06/14/17 03:24 Dose: 10,000 unit Vancomycin HCl 500 mg/ Sodium (Chloride) 100 mls @ 100 mls/hr IVPB TTS [facility] PRN Reason: Protocol Latanoprost (Xalatan Opht) 1 drop OU DAILY [facility] Last Admin: 06/14/17 08:54 Dose: 1 drop Pantoprazole Sodium (Protonix Susp) 40 mg PO DAILY [facility] Last Admin: 06/14/17 08:53 Dose: 40 mg Saliva Substitute (First Magic Mouthwash) 5 ml PO QID [facility] Last Admin: 06/14/17 12:00 Dose: Not Given Physical Exam - Constitutional Appears: Non-toxic, Chronically Ill - Head Exam Head Exam: NORMOCEPHALIC - Eye Exam Eye Exam: PERRL. absent: Scleral icterus - ENT Exam ENT Exam: Mucous Membranes Dry, Normal External Ear Exam - Neck Exam Neck exam: Negative for: Lymphadenopathy - Respiratory Exam Respiratory Exam: Decreased Breath Sounds - Cardiovascular Exam Cardiovascular Exam: REGULAR RHYTHM - GI/Abdominal Exam GI & Abdominal Exam: Diminished Bowel Sounds, Soft. absent: Tenderness - Rectal Exam Rectal Exam: Deferred - Exam Exam: NORMAL INSPECTION - Extremities Exam Extremities exam: Positive for: pedal pulses present. Negative for: calf tenderness, pedal edema, tenderness - Back Exam Back exam: absent: CVA tenderness (L), CVA tenderness (R) - Neurological Exam Neurological exam: Alert, Altered, CN II-XII Intact - Psychiatric Exam Psychiatric exam: Depressed - Skin Skin Exam: Dry Results - Vital Signs Recent Vital Signs: Last Vital Signs Temp 98.2 F 06/14/17 12:00 Pulse 89 06/14/17 12:00 Resp 20 06/14/17 12:00 BP 124/68 06/14/17 12:00 Pulse Ox 94 L 06/14/17 12:00 - Labs Result Diagrams: 06/13/17 12:24 06/13/17 12:24 Labs: Laboratory Results - last 24 hr 06/13/17 06/13/17 06/14/17 11:05 11:05 06:02 POC Glucose (mg/dL) 129 H Hep Bs Antigen Negative Hep Bs Antibody Positive Hepatitis C Antibody Negative 06/14/17 11:03 POC Glucose (mg/dL) 130 H Hep Bs Antigen Hep Bs Antibody Hepatitis C Antibody Assessment & Plan (1) Bacteremia Status: Acute (2) Bacteremia Status: Acute (3) ESRD (end stage renal disease) on dialysis Status: Acute (4) Sepsis Status: Acute - Assessment and Plan (Free Text) Assessment: CONT IV RX MAY NEED TO CHANGE HD CATHETER DR RAMIREZ TO EVALUATE
--- NOTE | 2017-06-14 18:45 | CARD ---
APPROVED REPORT EXAM: Two-dimensional and M-mode echocardiogram with Doppler and color Doppler. Other Information Quality : GoodRhythm : LBBB INDICATION Infection:Subacute bacterial endocarditis 2D DIMENSIONS IVSd1.51 (0.7-1.1cm)LVDd3.81 (3.9-5.9cm) LVOT Diameter2.10 (1.8-2.4cm)PWd1.33 (0.7-1.1cm) IVSs2.39 (0.8-1.2cm)LVDs2.50 (2.5-4.0cm) FS (%) 34.4 %PWs1.61 (0.8-1.2cm) M-Mode DIMENSIONS Left Atrium (MM)2.00 (2.5-4.0cm)IVSd1.24 (0.7-1.1cm) Aortic Root3.06 (2.2-3.7cm)LVDd4.97 (4.0-5.6cm) Aortic Cusp Exc.1.18 (1.5-2.0cm)PWd1.21 (0.7-1.1cm) IVSs1.72 cmFS (%) 39 % LVDs3.03 (2.0-3.8cm)PWs1.56 cm Aortic Valve AI P 1/2 [id number] Mitral Valve E/A ratio0.0 TDI E/Lateral E'0.0E/Medial E'0.0 Tricuspid Valve TR Peak [id number] Peak Gr.27mmHg [id number] LEFT VENTRICLE The left ventricle is normal size. There is mild to moderate concentric left ventricular hypertrophy. Left ventricle systolic function is normal. The Ejection Fraction is 60-65%. Due to IVCD, septum shows "rocking" motion. Otherwise there is normal LV segmental wall motion. Transmitral Doppler flow pattern is Grade I-abnormal relaxation pattern. RIGHT VENTRICLE The right ventricle is normal size. There is normal right ventricular wall thickness. The right ventricular systolic function is normal. ATRIA The left atrium size is normal. The right atrium size is normal. AORTIC VALVE Sclerotic leaflets otherwise poorly visualised. There is mild to moderate aortic regurgitation. There is no aortic valvular stenosis. MITRAL VALVE The mitral valve is normal in structure. There is no evidence of mitral valve prolapse. There is no mitral valve stenosis. Mitral regurgitation is mild to moderate. TRICUSPID VALVE The tricuspid valve is normal in structure and function. There is no tricuspid valve regurgitation noted. PULMONIC VALVE The pulmonary valve is normal in structure and function. There is no pulmonic valvular regurgitation. GREAT VESSELS The aortic root is normal in size. The IVC is normal in size and collapses >50% with inspiration. PERICARDIAL EFFUSION The pericardium appears normal. <Conclusion> The left ventricle is normal size. There is mild to moderate concentric left ventricular hypertrophy. Due to IVCD, septum shows "rocking" motion. Otherwise there is normal LV segmental wall motion. Left ventricle systolic function is normal. The Ejection Fraction is 60-65%. There is mild to moderate aortic regurgitation. Mitral regurgitation is mild to moderate.
[2017-06-15] MEDS ORDERED: Doxercalciferol 4 mcg/2 ml Inj IV SCH ×2 (09:00→23:47)
[2017-06-15] MEDS: EPOETIN ALFA 10,000 UNIT/ML ML IV SCH (09:00)
[2017-06-15] MEDS: Latanoprost 0.005% Opht SOUTION OU SCH (09:43)
[2017-06-15] MEDS: Mag&Al/Simet/Diphen/Lido 237 ML KIT PO SCH ×4 (09:44→21:17)
[2017-06-15] MEDS: Artificial Tears Opht Soln OU SCH ×4 (09:44→21:17)
[2017-06-15] MEDS: Enoxaparin 30 mg Syringe SC SCH (09:44)
[2017-06-15] MEDS: Pantoprazole 40 mg Susp UD PO SCH (09:45)
--- NOTE | 2017-06-15 12:05 | CP.PCM.PN ---
Subjective - Date & Time of Evaluation Date of Evaluation: 06/15/17 Time of Evaluation: 12:03 - Subjective Subjective: - PAtient seen resting in no acute distress. No overnight events reported. ID on board. Blood cultures x 2 positive. Patient is on Vanco. Objective - Vital Signs/Intake and Output Vital Signs (last 24 hours): Temp Pulse Resp BP Pulse Ox 98.0 F 94 H 20 145/78 97 06/15/17 08:00 06/15/17 09:00 06/15/17 08:00 06/15/17 08:00 06/15/17 08:00 - Medications Medications: Current Medications Artificial Tears (Artificial Tears) 1 drop OU QID [facility] Last Admin: 06/15/17 09:44 Dose: 1 drop Aspirin (Aspirin Chewable) 81 mg PEG DAILY [facility] Last Admin: 06/15/17 09:44 Dose: 81 mg Doxercalciferol (Hectorol) 4 mcg IV TTS [facility] Enoxaparin Sodium (Lovenox) 30 mg SC DAILY [facility] PRN Reason: Protocol Last Admin: 06/15/17 09:44 Dose: 30 mg Epoetin Tyrell (Procrit) 10,000 unit IV TTS [facility] Last Admin: 06/14/17 03:24 Dose: 10,000 unit Vancomycin HCl 500 mg/ Sodium (Chloride) 100 mls @ 100 mls/hr IVPB TTS [facility] PRN Reason: Protocol Latanoprost (Xalatan Opht) 1 drop OU DAILY [facility] Last Admin: 06/15/17 09:43 Dose: 1 drop Pantoprazole Sodium (Protonix Susp) 40 mg PO DAILY [facility] Last Admin: 06/15/17 09:45 Dose: 40 mg Saliva Substitute (First Magic Mouthwash) 5 ml PO QID [facility] Last Admin: 06/15/17 09:44 Dose: Not Given - Labs Labs: 06/13/17 12:24 06/13/17 12:24 PT 11.1 Seconds (9.8-13.1) 06/12/17 21:33 INR 0.1 (0.9-1.2) L 06/12/17 21:33 APTT 26.5 Seconds (25.6-37.1) 06/12/17 21:33 - Constitutional Appears: No Acute Distress - Respiratory Exam Respiratory Exam: Decreased Breath Sounds, Rhonchi, Wheezes - Cardiovascular Exam Cardiovascular Exam: +S1, +S2 - GI/Abdominal Exam GI & Abdominal Exam: Soft - Neurological Exam Neurological Exam: Awake Assessment and Plan (1) ESRD (end stage renal disease) on dialysis Status: Acute (2) CHF (congestive heart failure) Status: Chronic (3) Diverticulosis Status: Acute (4) Sepsis Assessment & Plan: - Blood cultures x 2 positive - ID on board - Patient is on Vanco - Patient may require HD cath removal Status: Acute - Assessment and Plan (Free Text) Assessment: Continue IV antibiotics - Follow up with morning CBC
--- NOTE | 2017-06-15 20:30 | CP.PCM.PN ---
Subjective - Date & Time of Evaluation Date of Evaluation: 06/15/17 Time of Evaluation: 20:30 - Subjective Subjective: pt is seen and examined, follow up consult is dictated #[id number] Objective - Vital Signs/Intake and Output Vital Signs (last 24 hours): Temp Pulse Resp BP Pulse Ox 97.4 F L 93 H 20 142/72 97 06/15/17 19:45 06/15/17 19:45 06/15/17 19:45 06/15/17 19:45 06/15/17 19:45 - Medications Medications: Current Medications Artificial Tears (Artificial Tears) 1 drop OU QID [facility] Last Admin: 06/15/17 16:58 Dose: 1 drop Aspirin (Aspirin Chewable) 81 mg PEG DAILY [facility] Last Admin: 06/15/17 09:44 Dose: 81 mg Doxercalciferol (Hectorol) 4 mcg IV TTS [facility] Last Admin: 06/15/17 09:00 Dose: 4 mcg Enoxaparin Sodium (Lovenox) 30 mg SC DAILY [facility] PRN Reason: Protocol Last Admin: 06/15/17 09:44 Dose: 30 mg Epoetin Tyrell (Procrit) 10,000 unit IV TTS [facility] Last Admin: 06/15/17 09:00 Dose: 10,000 unit Vancomycin HCl 500 mg/ Sodium (Chloride) 100 mls @ 100 mls/hr IVPB TTS [facility] PRN Reason: Protocol Last Admin: 06/15/17 09:00 Dose: 100 mls/hr Latanoprost (Xalatan Opht) 1 drop OU DAILY [facility] Last Admin: 06/15/17 09:43 Dose: 1 drop Pantoprazole Sodium (Protonix Susp) 40 mg PO DAILY [facility] Last Admin: 06/15/17 09:45 Dose: 40 mg Saliva Substitute (First Magic Mouthwash) 5 ml PO QID [facility] Last Admin: 06/15/17 16:58 Dose: Not Given - Labs Labs: 06/13/17 12:24 06/13/17 12:24 PT 11.1 Seconds (9.8-13.1) 06/12/17 21:33 INR 0.1 (0.9-1.2) L 06/12/17 21:33 APTT 26.5 Seconds (25.6-37.1) 06/12/17 21:33
--- NOTE | 2017-06-16 08:46 | PN ---
DATE: FOLLOWUP RENAL CONSULTATION LOCATION: The patient is located in room 415, bed 1. REQUESTED BY: Sher Mahoney MD REASON FOR FOLLOWUP: End stage renal disease for continuation of hemodialysis. HISTORY: Mrs. Rollins is an 82-year-old elderly female with past medical history significant for hypertension, rheumatoid arthritis, congestive heart failure, respiratory failure status post intubation x2, anemia, thrombocytopenia, renal failure, on hemodialysis for the last 4 months, was admitted through the emergency room with change in mental status from her baseline. The patient was not in acute distress. The patient's family is at bedside. Her culture from admission was positive for gram-positive cocci. They are waiting for the identification. The patient is not in acute distress. No shortness of breath. PHYSICAL EXAMINATION: As follows: GENERAL: Mrs. Rollins is an 82-year-old elderly female, moderately build, moderate nourished, not in acute distress. VITAL SIGNS: Blood pressure 142/72, pulse 93, respirations 20, temperature 97.4, saturation 97%, height 5 feet 3 inches and weight is 125 pounds. HEENT: Pupils are normally reactive to light. Conjunctivae pink. Sclerae are anicteric. Tongue is moist. Trachea is midline. No thyroid enlargement. LUNGS: Symmetric on both sides. Bilateral breath sounds present. Clear to auscultation. CARDIOVASCULAR SYSTEM: [place] at the fifth intercostal space, midclavicular line. S1 an d S2 audible. No murmur. No gallop. ABDOMEN: Normal in appearance. Status post PEG tube placement. Abdomen is soft, tympanic. No guarding. No rigidity. No hepatosplenomegaly. CENTRAL NERVOUS SYSTEM: The patient is arousable, following simple commands. EXTREMITIES: No cyanosis. No clubbing. No edema. The patient is bedridden for the last 4 months. LABORATORY DATA: No new labs are available. Accu-Cheks 128, 146, and 138. CURRENT MEDICATIONS: Include as follows: Artificial tears, aspirin 81 mg daily, saliva substitute, 3 times a week and Lovenox 30 mg subcutaneous daily, Procrit 10, 000 units 3 times a week, Protonix 40 mg p.o. daily, vancomycin 500 mg 3 times a week and Xalatan eye drops. ASSESSMENT AND PLAN: Mrs. Rollins is an 82-year-old elderly female with hypertension, rheumatoid arthritis, congestive heart failure, cardiomyopathy, anemia, thrombocytopenia, end-stage renal disease, on hemodialysis for the last 4 months. 1. End-stage renal disease, continue hemodialysis 3 times a week, Monday, , Monday. 2. 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 3. Hypertension. Blood pressure is stable. 4. sepsis, source is not clear. Rule out contamination. Continue IV antibodies as per Dr. Perez. The patient is scheduled for hemodialysis today. We will follow with you. Thank you for allowing me to participate in your patient's care. Eddie Augustine MD
[2017-06-16] MEDS: Latanoprost 0.005% Opht SOUTION OU SCH (09:27)
[2017-06-16] MEDS: Enoxaparin 30 mg Syringe SC SCH (09:27)
[2017-06-16] MEDS: Pantoprazole 40 mg Susp UD PO SCH (09:27)
[2017-06-16] MEDS: Artificial Tears Opht Soln OU SCH ×4 (09:27→21:38)
[2017-06-16] MEDS: Mag&Al/Simet/Diphen/Lido 237 ML KIT PO SCH ×4 (09:27→21:38)
--- NOTE | 2017-06-16 11:21 | CP.PCM.PCO ---
Assessment & Plan - Assessment and Plan (Free Text) Assessment: pt. afebrile- Blood cx results from 06/12 Staph coag negative x 2 pt. on Vanco post dialysis cont. Vancomycin 500 mg iv post HD MWF x 3 weeks as per - Rx provided As per - pt. may be d/c to [facility] tomorrow after Dialysis f/u repeat blood cx results from hd cath site/ peripheral
--- NOTE | 2017-06-16 12:02 | CP.PCM.PN ---
Subjective - Date & Time of Evaluation Date of Evaluation: 06/16/17 Time of Evaluation: 12:01 - Subjective Subjective: - Patient seen at bedside with Dr. Mahoney. No acute distress. No events reported overnight. Has remained afebrile. Will be D[facility]. Objective - Vital Signs/Intake and Output Vital Signs (last 24 hours): Temp Pulse Resp BP Pulse Ox 98.3 F 88 20 125/80 95 06/16/17 08:00 06/16/17 09:00 06/16/17 08:00 06/16/17 08:00 06/16/17 08:00 - Medications Medications: Current Medications Artificial Tears (Artificial Tears) 1 drop OU QID [facility] Last Admin: 06/16/17 09:27 Dose: 1 drop Aspirin (Aspirin Chewable) 81 mg PEG DAILY [facility] Last Admin: 06/16/17 09:27 Dose: 81 mg Doxercalciferol (Hectorol) 2 mcg IV TTS [facility] Enoxaparin Sodium (Lovenox) 30 mg SC DAILY [facility] PRN Reason: Protocol Last Admin: 06/16/17 09:27 Dose: 30 mg Epoetin Tyrell (Procrit) 10,000 unit IV TTS [facility] Last Admin: 06/15/17 09:00 Dose: 10,000 unit Vancomycin HCl 500 mg/ Sodium (Chloride) 100 mls @ 100 mls/hr IVPB TTS [facility] PRN Reason: Protocol Last Admin: 06/15/17 09:00 Dose: 100 mls/hr Latanoprost (Xalatan Opht) 1 drop OU DAILY [facility] Last Admin: 06/16/17 09:27 Dose: 1 drop Pantoprazole Sodium (Protonix Susp) 40 mg PO DAILY [facility] Last Admin: 06/16/17 09:27 Dose: 40 mg Saliva Substitute (First Magic Mouthwash) 5 ml PO QID [facility] Last Admin: 06/16/17 09:27 Dose: Not Given - Labs Labs: 06/13/17 12:24 06/13/17 12:24 PT 11.1 Seconds (9.8-13.1) 06/12/17 21:33 INR 0.1 (0.9-1.2) L 06/12/17 21:33 APTT 26.5 Seconds (25.6-37.1) 06/12/17 21:33 - Constitutional Appears: No Acute Distress - Head Exam Head Exam: NORMAL INSPECTION - Eye Exam Eye Exam: Normal appearance - Respiratory Exam Respiratory Exam: Clear to Ausculation Bilateral, NORMAL BREATHING PATTERN. absent: Accessory Muscle Use - Cardiovascular Exam Cardiovascular Exam: REGULAR RHYTHM, +S1, +S2 - GI/Abdominal Exam GI & Abdominal Exam: Soft. absent: Tenderness - Neurological Exam Neurological Exam: Awake - Skin Skin Exam: Normal Color, Warm Assessment and Plan (1) ESRD (end stage renal disease) on dialysis Status: Acute (2) CHF (congestive heart failure) Status: Chronic (3) Diverticulosis Status: Acute (4) Sepsis Assessment & Plan: Vancomycin s/p dialysis. Pt will [facility] after dialysis = F/U with repeat blood culture from hd cath site/ peripheral Status: Acute
--- NOTE | 2017-06-16 12:41 | CP.PCM.PN ---
Subjective - Date & Time of Evaluation Date of Evaluation: 06/16/17 Time of Evaluation: 09:00 - Subjective Subjective: discussed on rounds remains weak and lethargic \NAD Objective - Vital Signs/Intake and Output Vital Signs (last 24 hours): Temp Pulse Resp BP Pulse Ox 99.0 F 83 20 106/64 98 06/16/17 12:00 06/16/17 12:00 06/16/17 12:00 06/16/17 12:00 06/16/17 12:00 - Medications Medications: Current Medications Artificial Tears (Artificial Tears) 1 drop OU QID [facility] Last Admin: 06/16/17 09:27 Dose: 1 drop Aspirin (Aspirin Chewable) 81 mg PEG DAILY [facility] Last Admin: 06/16/17 09:27 Dose: 81 mg Doxercalciferol (Hectorol) 2 mcg IV TTS [facility] Enoxaparin Sodium (Lovenox) 30 mg SC DAILY [facility] PRN Reason: Protocol Last Admin: 06/16/17 09:27 Dose: 30 mg Epoetin Tyrell (Procrit) 10,000 unit IV TTS [facility] Last Admin: 06/15/17 09:00 Dose: 10,000 unit Vancomycin HCl 500 mg/ Sodium (Chloride) 100 mls @ 100 mls/hr IVPB TTS [facility] PRN Reason: Protocol Last Admin: 06/15/17 09:00 Dose: 100 mls/hr Latanoprost (Xalatan Opht) 1 drop OU DAILY [facility] Last Admin: 06/16/17 09:27 Dose: 1 drop Pantoprazole Sodium (Protonix Susp) 40 mg PO DAILY [facility] Last Admin: 06/16/17 09:27 Dose: 40 mg Saliva Substitute (First Magic Mouthwash) 5 ml PO QID [facility] Last Admin: 06/16/17 09:27 Dose: Not Given - Labs Labs: 06/13/17 12:24 06/13/17 12:24 PT 11.1 Seconds (9.8-13.1) 06/12/17 21:33 INR 0.1 (0.9-1.2) L 06/12/17 21:33 APTT 26.5 Seconds (25.6-37.1) 06/12/17 21:33 - Constitutional Appears: Non-toxic, Cachectic, Chronically Ill - Head Exam Head Exam: NORMOCEPHALIC - Eye Exam Eye Exam: PERRL. absent: Scleral icterus - ENT Exam ENT Exam: Mucous Membranes Dry - Neck Exam Neck Exam: absent: Lymphadenopathy - Respiratory Exam Respiratory Exam: Decreased Breath Sounds, Rhonchi - Cardiovascular Exam Cardiovascular Exam: REGULAR RHYTHM, +S1, +S2 - GI/Abdominal Exam GI & Abdominal Exam: Distended, Soft. absent: Tenderness - Rectal Exam Rectal Exam: Deferred - Exam Exam: NORMAL INSPECTION - Extremities Exam Extremities Exam: absent: Calf Tenderness, Pedal Edema - Back Exam Back Exam: absent: CVA tenderness (L), paraspinal tenderness - Neurological Exam Neurological Exam: Alert, Altered, Awake Neuro motor strength exam: Left Upper Extremity: 3, Right Upper Extremity: 3, Left Lower Extremity: 3, Right Lower Extremity: 3 - Psychiatric Exam Psychiatric exam: Depressed - Skin Skin Exam: Dry Assessment and Plan (1) Bacteremia Status: Acute (2) Bacteremia Status: Acute (3) ESRD (end stage renal disease) on dialysis Status: Acute (4) Sepsis Status: Acute - Assessment and Plan (Free Text) Assessment: Blood cx results from 06/12 Staph coag negative x 2 pt. on Vanco post dialysis cont. Vancomycin 500 mg iv post HD MWF x 3 weeks
[2017-06-17] MEDS: Artificial Tears Opht Soln OU SCH ×3 (08:51→17:36)
[2017-06-17] MEDS: Mag&Al/Simet/Diphen/Lido 237 ML KIT PO SCH ×3 (08:52→17:40)
[2017-06-17] MEDS: Enoxaparin 30 mg Syringe SC SCH (08:52)
[2017-06-17] MEDS: Latanoprost 0.005% Opht SOUTION OU SCH (08:55)
--- NOTE | 2017-06-17 10:27 | CP.PCM.DIS ---
Provider - Provider Date of Admission: 06/12/17 23:37 Attending physician: Sher Mahoney MD Hospital Course - Lab Results Lab Results: Micro Results 06/15/17 17:00 Blood-During Dialysis Blood Culture - Preliminary NO GROWTH AFTER 24 HOURS 06/15/17 17:30 Blood-During Dialysis Blood Culture - Preliminary NO GROWTH AFTER 24 HOURS 06/14/17 12:00 Blood Blood Culture - Preliminary NO GROWTH AFTER 48 HOURS 06/12/17 21:55 Blood-Venous Blood Culture - Final Coagulase Neg Staphylococcus 06/12/17 21:55 Blood-Venous Gram Stain - Final 06/12/17 21:20 Blood-Venous S.aureus & Coag-Neg Staph PNA FISH - Final 06/12/17 21:20 Blood-Venous Blood Culture - Final Coagulase Neg Staphylococcus 06/12/17 21:20 Blood-Venous Gram Stain - Final Most Recent Lab Values WBC 10.1 K/uL (4.8-10.8) 06/13/17 12:24 RBC 4.15 Mil/uL (3.80-5.20) 06/13/17 12:24 Hgb 10.9 g/dL (12.0-16.0) L 06/13/17 12:24 Hct 35.7 % (34.0-47.0) 06/13/17 12:24 MCV 86.2 fl (81.0-99.0) 06/13/17 12:24 MCH 26.4 pg (27.0-31.0) L 06/13/17 12:24 MCHC 30.6 g/dL (33.0-37.0) L 06/13/17 12:24 RDW 21.8 % (11.5-14.5) H 06/13/17 12:24 Plt Count 153 K/uL (130-400) 06/13/17 12:24 MPV 10.0 fl (7.2-11.7) 06/12/17 21:33 Neut % (Auto) 66.2 % (50.0-75.0) 06/12/17 21:33 Lymph % (Auto) 12.0 % (20.0-40.0) L 06/12/17 21:33 [place] % (Auto) 13.6 % (0.0-10.0) H 06/12/17 21:33 Eos % (Auto) 7.7 % (0.0-4.0) H 06/12/17 21:33 Baso % (Auto) 0.5 % (0.0-2.0) 06/12/17 21:33 Neut # 6.7 K/uL (1.8-7.0) 06/12/17 21:33 Lymph # 1.2 K/uL (1.0-4.3) 06/12/17 21:33 [place] # 1.4 K/uL (0.0-0.8) H 06/12/17 21:33 Eos # 0.8 K/uL (0.0-0.7) H 06/12/17 21:33 Baso # 0.1 K/uL (0.0-0.2) 06/12/17 21:33 PT 11.1 Seconds (9.8-13.1) 06/12/17 21:33 INR 0.1 (0.9-1.2) L 06/12/17 21:33 APTT 26.5 Seconds (25.6-37.1) 06/12/17 21:33 pO2 22 mm/Hg (30-55) L 06/12/17 21:34 VBG pH 7.47 (7.32-7.43) H 06/12/17 21:34 VBG pCO2 51 mmHg (40-60) 06/12/17 21:34 VBG HCO3 32.4 mmol/L 06/12/17 21:34 VBG Total CO2 38.7 mmol/L (22-28) H 06/12/17 21:34 VBG O2 Sat (Calc) 42.4 % (40-65) 06/12/17 21:34 VBG Base Excess 11.5 mmol/L (0.0-2.0) H 06/12/17 21:34 VBG Potassium 4.5 mmol/L (3.6-5.2) 06/12/17 21:34 Sodium 134.0 mmol/L (132-148) 06/12/17 21:34 Chloride 96.0 mmol/L (98-107) L 06/12/17 21:34 Glucose 205 mg/dL (65-105) H 06/12/17 21:34 Lactate 2.2 mmol/L (0.7-2.1) H 06/12/17 21:34 FiO2 21.0 % 06/12/17 21:34 Sodium 137 mmol/l (132-148) 06/13/17 12:24 Potassium 4.1 MMOL/L (3.6-5.0) 06/13/17 12:24 Chloride 94 mmol/L (98-107) L 06/13/17 12:24 Carbon Dioxide 32 mmol/L (22-30) H 06/13/17 12:24 Anion Gap 15 (10-20) 06/13/17 12:24 BUN 77 mg/dl (7-17) H 06/13/17 12:24 Creatinine 5.1 mg/dL (0.7-1.2) H 06/13/17 12:24 Est GFR ( Amer) 10 06/13/17 12:24 Est GFR (Non-Af Amer) 8 06/13/17 12:24 POC Glucose (mg/dL) 127 mg/dL (65-110) H 06/16/17 16:18 Random Glucose 119 mg/dL (65-105) H 06/13/17 12:24 Lactic Acid 1.1 MMOL/L (0.7-2.1) 06/13/17 03:08 Uric Acid 3.6 mg/Dl (2.2-7.5) 06/12/17 22:04 Calcium 10.0 mg/dL (8.4-10.2) 06/13/17 12:24 Total Bilirubin 0.5 mg/dl (0.2-1.3) 06/12/17 22:04 AST 64 U/L (14-36) H D 06/12/17 22:04 ALT 46 U/L (9-52) 06/12/17 22:04 Alkaline Phosphatase 292 U/L (38-126) H 06/12/17 22:04 Total Protein 7.0 G/DL (6.3-8.2) 06/12/17 22:04 Albumin 3.4 g/dL (3.5-5.0) L 06/12/17 22:04 Globulin 3.6 gm/dL (2.2-3.9) 06/12/17 22:04 Albumin/Globulin Ratio 0.9 (1.0-2.1) L 06/12/17 22:04 Venous Blood Potassium 4.5 mmol/L (3.6-5.2) 06/12/17 21:34 Hep Bs Antigen Negative (NEGATIVE) 06/13/17 11:05 Hep Bs Antibody Positive (NEGATIVE) 06/13/17 11:05 Hepatitis C Antibody Negative (NEGATIVE) 06/13/17 11:05 - Hospital Course Hospital Course: This is an 82 y/o female admitted for Discharge Exam - Head Exam Head Exam: NORMOCEPHALIC Discharge Plan - Discharge Medications Prescriptions: Vancomycin 500mg in NS 500 mg IVPB MWF #10 bag - Follow Up Plan Condition: FAIR Disposition: HOME/ ROUTINE
[2017-06-17 12:19] VITALS: RESP 20
[2017-06-17] MEDS: EPOETIN ALFA 10,000 UNIT/ML ML IV SCH (12:50)
[2017-06-17] MEDS: Pantoprazole 40 mg Susp UD PO SCH (12:53)
[2017-06-17 16:02] VITALS: BP 150/76; PULSE 106; TEMP 98.4; O2SAT 99
--- NOTE | 2017-06-17 17:27 | CP.PCM.PN ---
Subjective - Date & Time of Evaluation Date of Evaluation: 06/17/17 Time of Evaluation: 17:26 - Subjective Subjective: pt is seen and examined, follow up consult is dictated #[id number] s/p hd today Objective - Vital Signs/Intake and Output Vital Signs (last 24 hours): Temp Pulse Resp BP Pulse Ox 98.4 F 106 H 20 150/76 99 06/17/17 16:01 06/17/17 16:01 06/17/17 16:01 06/17/17 16:01 06/17/17 16:01 - Medications Medications: Current Medications Artificial Tears (Artificial Tears) 1 drop OU QID [facility] Last Admin: 06/17/17 13:32 Dose: 1 drop Aspirin (Aspirin Chewable) 81 mg PEG DAILY [facility] Last Admin: 06/17/17 08:51 Dose: 81 mg Doxercalciferol (Hectorol) 2 mcg IV TTS [facility] Last Admin: 06/17/17 12:50 Dose: 2 mcg Enoxaparin Sodium (Lovenox) 30 mg SC DAILY [facility] PRN Reason: Protocol Last Admin: 06/17/17 08:52 Dose: 30 mg Epoetin Tyrell (Procrit) 10,000 unit IV TTS [facility] Last Admin: 06/17/17 12:50 Dose: 10,000 unit Vancomycin HCl 500 mg/ Sodium (Chloride) 100 mls @ 100 mls/hr IVPB TTS [facility] PRN Reason: Protocol Last Admin: 06/17/17 12:51 Dose: 100 mls/hr Latanoprost (Xalatan Opht) 1 drop OU DAILY [facility] Last Admin: 06/17/17 08:55 Dose: 1 drop Pantoprazole Sodium (Protonix Susp) 40 mg PO DAILY [facility] Last Admin: 06/17/17 12:53 Dose: Not Given Saliva Substitute (First Magic Mouthwash) 5 ml PO QID [facility] Last Admin: 06/17/17 12:53 Dose: Not Given - Labs Labs: 06/13/17 12:24 06/13/17 12:24 PT 11.1 Seconds (9.8-13.1) 06/12/17 21:33 INR 0.1 (0.9-1.2) L 06/12/17 21:33 APTT 26.5 Seconds (25.6-37.1) 06/12/17 21:33
--- NOTE | 2017-06-18 04:12 | PN ---
DATE: FOLLOWUP RENAL CONSULTATION LOCATION: The patient is located in room 415, bed 1. REQUESTED BY: Sher Mahoney MD REASON FOR FOLLOWUP: End-stage renal disease, for continuation of the hemodialysis. HISTORY OF PRESENT ILLNESS: Ms. Suzie Bellamy is an 82-year-old elderly female with a past medical history significant for longstanding hypertension, rheumatoid arthritis, CHF, cardiomyopathy, anemia, thrombocytopenia, and renal failure, on hemodialysis 3 times a week, on Monday, , and Monday for the last 4 months, was recently discharged from the [facility] on 06/09/2017 to home and the patient was started on dialysis in [facility] in [facility] on and the patient was back to the [facility] with chief complaints of altered mental status from her baseline and unable to take care of patient in the house. The patient was started on hemodialysis 3 times a week, on Monday, , and Monday. The patient is not in acute distress, following simple commands. The patient's granddaughter at bedside. The patient underwent hemodialysis this afternoon without any complications. The patient is not in any distress. PHYSICAL EXAMINATION: GENERAL: Ms. Suzie Bellamy is an 82-year-old elderly female, moderately build, moderately nourished, not in acute distress. VITAL SIGNS: Are as follows: Her blood pressure 150/76, pulse 106, respirations 20, temperature 98.4, saturation 99%, height 5 feet 3 inches and weight is 125 pounds. HEENT: Pupils are normally reactive to light and accommodation. Conjunctivae pink. Sclerae are anicteric. Tongue is moist and the trachea is midline. LUNGS: Symmetric on both sides. Bilateral breath sounds present. No crackles. CARDIOVASCULAR SYSTEM: [place] at the sixth intercostal space, midclavicular line. S1 and S2 audible. No murmur. No gallop. ABDOMEN: Normal in appearance. Soft, tympanic. The patient has a PEG tube. No guarding. No rigidity. No abdominal bruits. CENTRAL NERVOUS SYSTEM: The patient is alert, awake, and following simple commands. EXTREMITIES: No cyanosis. No clubbing. No edema. CURRENT MEDICATIONS: Include as follows: Aspirin 81 mg daily, Xalatan eye drops, Epogen 10,000 units 3 times a week, and Magic Mouthwash, Zemplar 1 mcg 3 times a week, Protonix 40 mg p.o. daily, vancomycin 500 mg 3 times a week, Monday, Monday, and Monday and Lovenox 30 mg subQ daily. LABORATORY DATA: No new labs are available. Accu-Cheks 188, 177, and 186. ASSESSMENT AND PLAN: In summary, Ms. 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 1. End-stage renal disease, currently on hemodialysis, 3 times a weeks, Monday, , and Monday. 2. Hypertension, not on any medications. WILLIAN inhibitors on hold due to history of hyperkalemia. 3. 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 The patient is being discharged to subacute rehab for possible long-term placement, also discussed with the patient's granddaughter at bedside. Thank you for allowing me to participate in your patient's care. Eddie Augustine MD
--- NOTE | 2017-06-20 09:13 | PQF SEPSIS ---
This form is a permanent part of the medical record DR. EARL MAN: (1) PLEASE CLARIFY IF SEPSIS WAS RULED IN OR OUT. (2) IF SEPSIS WAS RULED IN COULD YOU CLARIFY THE POSSIBLE ETIOLOGY. H&P HAS ADDENDUM ON 06/14/17 SEPSIS HAS BEEN RULED OUT. P/N OF 06/15/17 HAS DIAGNOSIS OF SEPSIS IN PATIENT WIHT ESRD WITH DIALYSIS CATH. Clarification of your documentation is requested to better reflect the severity of illness and intensity of treatment of your patient. Indicators present [] Temp < 96.8 or > 100.4 [] WBC count > 12,000/mm3 or <000/mm3 or 10% immature neutrophils [] Heart Rate > 90 [] Respiratory Rate > 20 [] Fever or hypothermia [] Chills [] Positive blood cultures [] Hypotension [] Metabolic acidosis (Elevated lactate level, anion gap or reduced blood pH) [] Acute confusion /Altered Mental Status [] Shock [] Other: [] Location in the medical record that reflects the above clinical findings: [] Treatment Provided: [] PHYSICIAN'S RESPONSE Based on your medical judgment of the clinical indicators outlined above, are you treating this patient for a known or suspected: [] Sepsis / Septicemia Please specify organism if known [] [] SIRS (Systemic Inflammatory Response Syndrome) [] Severe Sepsis (Sepsis with Associated Organ Dysfunction) [] Fever of Unknown Origin [] Other, please indicate: [] [] If Unable to Determine, please check the box, sign and date. Present On Admission (POA) Indicator: [] Present at the time of admission [] Not present at the time of admission [] Clinically Undetermined In responding to this query, please exercise your independent professional judgment. The fact that a question is asked does not imply that any particular answer is desired or expected. Thank you for your clarification on this documentation. If you have any questions please call:[ ] * Thank you, * BELKYS REYES [[phone] bar machine operator multiple spindle BOBBY
== END 2017-06-17 18:00 | DRG 544 ==
LOC: H.ER 21:06 → H.ERHOLD 23:37 → H.TEL 06-13 02:33
PROVIDERS: ADMIT Family Medicine; ATTEND Family Medicine
PROC: 5A1D70Z Performance of Urinary Filtration, Intermittent, Less than 6 Hours Per Day (ICD-10-PCS; principal; 2017-06-14)
DX: I13.2 Hypertensive heart and chronic kidney disease with heart failure and with stage 5 chronic kidney disease, or end stage renal disease (principal); T82.7XXA Infection and inflammatory reaction due to other cardiac and vascular devices, implants and grafts, initial encounter; A41.9 Sepsis, unspecified organism; L89.152 Pressure ulcer of sacral region, stage 2; D69.3 Immune thrombocytopenic purpura; R64 Cachexia; N18.6 End stage renal disease; I50.22 Chronic systolic (congestive) heart failure; I42.9 Cardiomyopathy, unspecified; F03.90 Unspecified dementia, unspecified severity, without behavioral disturbance, psychotic disturbance, mood disturbance, and anxiety; E11.22 Type 2 diabetes mellitus with diabetic chronic kidney disease; E87.5 Hyperkalemia; D64.9 Anemia, unspecified; M06.9 Rheumatoid arthritis, unspecified; K57.90 Diverticulosis of intestine, part unspecified, without perforation or abscess without bleeding; M19.90 Unspecified osteoarthritis, unspecified site; Z74.01 Bed confinement status; Z79.899 Other long term (current) drug therapy; Z87.891 Personal history of nicotine dependence; Z93.1 Gastrostomy status; Z99.2 Dependence on renal dialysis; L29.9 Pruritus, unspecified

== ENCOUNTER 2017-08-17 03:20 | Inpatient (IN) | payer MEDICAID ==
[2017-08-17] MEDS ORDERED: Sodium Chloride 0.9% 1,000 ML IV STA (03:45)
[2017-08-17 03:46] VITALS: BMI 28.3
[2017-08-17] MEDS ORDERED: Cefepime 2 GM in Sodium Chloride 0.9% 100 ML IVPB STA (03:50)
[2017-08-17 03:54] LABS: VENOUS BLOOD GAS BASE EXCESS 2.3 mmol/L (0.0-2.0); VENOUS BLOOD GAS MODE ROOM AIR; VENOUS BLOOD GAS PCO2 39 mmHg (40-60); VENOUS BLOOD PH 7.44 (7.32-7.43)
[2017-08-17 03:57] LABS: BASO % 0.4 % (0.0-2.0); EOS % 0.4 % (0.0-4.0); HEMATOCRIT 40.9 % (34.0-47.0); LYMPH # 0.5 K/uL (1.0-4.3); LYMPH % 7.9 % (20.0-40.0); MEAN CELL VOLUME 92.6 fl (81.0-99.0); MEAN CORPUSCULAR HEMOGLOBIN 30.1 pg (27.0-31.0); MEAN CORPUSCULAR HGB CONC 32.5 g/dL (33.0-37.0); MEAN PLATELET VOLUME 9.8 fl (7.2-11.7); MONO # 0.9 K/uL (0.0-0.8); MONO % 13.8 % (0.0-10.0); NEUT % 77.5 % (50.0-75.0); NRBC % 0.6 % (0.0-0.0); PLATELET COUNT 191 K/uL (130-400); RED CELL DISTRIBUTION WIDTH 20.4 % (11.5-14.5); WHITE BLOOD COUNT 6.4 K/uL (4.8-10.8)
[2017-08-17 04:08] LABS: ALB/GLOB RATIO 0.8 (1.0-2.1); BILIRUBIN,TOTAL 0.4 mg/dl (0.2-1.3); CALCIUM 9.4 mg/dL (8.4-10.2); MAGNESIUM 2.2 MG/DL (1.6-2.3); PHOSPHOROUS 3.1 mg/dl (2.5-4.5); POTASSIUM 3.6 MMOL/L (3.6-5.0); TOTAL PROTEIN 6.7 G/DL (6.3-8.2)
[2017-08-17] MEDS ORDERED: Lidocaine 1% Inj (20ml) ONE (04:10)
--- NOTE | 2017-08-17 05:11 | ED PDOC ---
HPI: General Adult Time Seen by Provider: 08/17/17 03:24 Chief Complaint (Nursing): Fever Chief Complaint (Provider): Fever History Per: EMS, Other (long-term records) History/Exam Limitations: no limitations Onset/Duration Of Symptoms: Days (2) Current Symptoms Are (Timing): Still Present Additional Complaint(s): 82yo female with history of end stage renal disease, CHF, sent to ED from [facility]. Per EMS, patient has been coughing and has been febrile for the past 2 days. patient was started on Levoquin yesterday but her fever still persists, prompting the ED visit. At baseline patient is with altered mental status so she is unable to proved a ROS or HPI. Past Medical History Reviewed: Historical Data, Nursing Documentation, Vital Signs Vital Signs: Last Vital Signs Temp 101.2 F H 08/17/17 03:20 Pulse 105 H 08/17/17 06:07 Resp 32 H 08/17/17 06:07 BP 78/47 L 08/17/17 06:07 Pulse Ox 93 L 08/17/17 06:07 - Medical History PMH: Anemia, Arthritis, CHF, Dementia, HTN, Peripheral Edema, End Stage Renal Disease, Chronic Kidney Disease - Surgical History Surgical History: No Surg Hx - Family History Family History: States: Unknown Family Hx - Living Arrangements Living Arrangements: Jail/Assist Lvng - Immunization History Hx Tetanus Toxoid Vaccination: No Hx Influenza Vaccination: No Hx Pneumococcal Vaccination: No - Home Medications Home Medications: Ambulatory Orders Medication Instructions Recorded Carboxymethylcellulose Sodium 1 drop OU QID 02/05/17 [Thera Tears] Latanoprost 0.005% Opht [Xalatan 1 drop OU DAILY 02/05/17 Opht] Mag&Al/Simet/Diphen/Lido [First 5 ml PO QID kit 03/01/17 Magic Mouthwash] Epoetin Tyrell [Procrit] 10,000 unit IV TTS ml 06/07/17 Paricalcitol [Zemplar] 1 mcg IV TTS ml 06/07/17 Aspirin [Aspirin Chewable] 81 mg PEG DAILY #30 ctb 06/09/17 Lisinopril [Prinivil] 5 mg PEG DAILY #30 tablet 06/09/17 Pantoprazole [Protonix Susp] 40 mg PO DAILY #30 packet 06/09/17 Enoxaparin [Lovenox] 30 mg SC DAILY syr 06/16/17 Vancomycin 500mg in NS 500 mg IVPB MWF #10 bag 06/16/17 - Allergies Allergies/Adverse Reactions: Allergies Allergy/AdvReac Type Severity Reaction Status Date / Time No Known Allergies Allergy Verified 03/04/17 01:13 Review of Systems ROS Statement: Except As Marked, All Systems Reviewed And Found Negative Constitutional: Positive for: Fever Respiratory: Positive for: Cough Physical Exam - Physical Exam Appears: Positive for: In Acute Distress Skin: Positive for: Warm Eye Exam: Positive for: Normal appearance Cardiovascular/Chest: Positive for: Tachycardia, Other (dialysis port on right side of chest clean and intact) Respiratory: Positive for: Rales (bilaterally), Rhonchi (bilaterally) Gastrointestinal/Abdominal: Positive for: Soft, Other (PEG tube site clean and tube is intact) Back: Positive for: Other (skin breakdown in sacral area (see nursing note for further detail)) Neurologic/Psych: Positive for: Other (altered mental status at baseline) - Laboratory Results Result Diagrams: 08/17/17 03:50 08/17/17 03:50 - ECG O2 Sat by Pulse Oximetry: 84 - Critical Care Total Time (In Min): 60 Documented Critical Care: Time excludes all time spent performint seperately billable procedures Medical Decision Making Medical Decision Making: Impression: Sepsis pneumonia vs. UTI Plan: -- Labs -- Chest x-ray -- EKG -- Tylenol 650 mg [place] -- Duoneb 3ml INH -- Maxipime IV -- Vancomycin IV -- Full bolus not given due to end stage renal status and since patient is on dialysis Time: [address] Thompson, hospitalist pony ride operator. Time: 531 Echo reviewed and LVEF 60-65% from May. Will give 1L bolus over 2 hrs with careful monitoring of respiratory status. Dr. Thompson at bedside. Time: 599 Dr. Blair, patient's PMD informed of case and patient to be admitted to ICU under Dr. Blair Scribe Attestation: Documented by La Ashton acting as a scribe for Fran Martinez MD. Provider Attestation: All medical record entries made by the Scribe were at my direction and personally dictated by me. I have reviewed the chart and agree that the record accurately reflects my personal performance of the history, physical exam, medical decision making, and the department course for this patient. I have also personally directed, reviewed, and agree with the discharge instructions and disposition. Procedures - Time-Out Type of Procedure: Central Line Site of Procedure: Left Femoral Correct Patient (with visual ID + MR# on ID Band): Yes Correct Procedure: Yes Physician Name: Dr. Martinez - Central Line Central Line Lumen: triple Central Line Procedure: betadine prep, sterile drapes applied Central Line Postion: femoral (L) (Both right and left IJ were calcified, resulting in difficult access) Anesthesia: Lidocaine (1%) cc's of anesthesia: 5 Complications: none Central Line Post Position: sutured, good blood return Progress: Patient tolerated procedure well Disposition - Clinical Impression Clinical Impression: Fever, Sepsis, VASILIY (acute kidney injury), Pneumonia - Disposition Referrals: Elliot Blair MD [Primary Care Provider] - Disposition Time: 05:00 Condition: CRITICAL Forms: Yeelink (Irish)
[2017-08-17] MEDS ORDERED: Albuterol-Ipratrop 3 mg / 0.5 (3 ml) UD INH STA (05:13)
[2017-08-17] MEDS ORDERED: Sodium Chloride 0.9% 1,000 ML IV SCH ×2 (05:30→07:30)
[2017-08-17] MEDS ORDERED: Albuterol-Ipratrop 3 mg / 0.5 (3 ml) UD ONE (05:34)
--- NOTE | 2017-08-17 06:09 | CP.PCM.CON ---
History of Present Illness - History of Present Illness History of Present Illness: CC/Reason for ICU: HCAP/severe sepsis HPI: This is an 82 y/o female resident of [facility] with MHx significant for dementia, ESRD on T/Th/Sat HD, and ?diastolic dysfunction who is brought in for fever/cough. Apparently, per EMS she was started on LVQ yesterday but is persistently febrile and overall is condition deteriorating. Due to dementia, patient is unable to provide any HPI. ROS: unable to obtain MHx: ESRD on T/Th/Sat HD, ?diastolic dysfunction, dementia SHx: PEG tube, RIJ dialysis cath Allergies: NKDA Medications: Per med rec Family Hx: Unable to obtain Social Hx: Lives in [facility], unable to obtain other infor Surrogate Dec Mkr: cannot provide at this time Past Patient History - Past Medical History & Family History Past Medical History?: Yes - Past Social History Smoking Status: Former Smoker - CARDIAC Hx Congestive Heart Failure: Yes Hx Hypertension: Yes Hx Peripheral Edema: Yes - PULMONARY Hx Respiratory Disorders: No - NEUROLOGICAL Hx Dementia: Yes - HEENT Hx HEENT Problems: Yes - RENAL Hx Chronic Kidney Disease: Yes - ENDOCRINE/METABOLIC Hx Endocrine Disorders: Yes (enlarged thyroid) Hx Diabetes Mellitus Type 2: Yes - HEMATOLOGICAL/ONCOLOGICAL Hx Anemia: Yes - INTEGUMENTARY Hx Dermatological Problems: Yes (generalized pruritus) - MUSCULOSKELETAL/RHEUMATOLOGICAL Hx Arthritis: Yes - GASTROINTESTINAL Hx Gastrointestinal Disorders: No - GENITOURINARY/GYNECOLOGICAL Hx Genitourinary Disorders: No - PSYCHIATRIC Hx Psychophysiologic Disorder: No Hx Substance Use: No - SURGICAL HISTORY Hx Surgeries: Yes Other/Comment: 1993 THYROID SX - ANESTHESIA Hx Anesthesia: Yes Hx Anesthesia Reactions: No Hx Malignant Hyperthermia: No Meds Allergies/Adverse Reactions: Allergies Allergy/AdvReac Type Severity Reaction Status Date / Time No Known Allergies Allergy Verified 03/04/17 01:13 - Medications Medications: Current Medications Acetaminophen (Tylenol 325mg Tab) 650 mg PO Q6H PRN PRN Reason: Fever >100.4 F Albuterol/Ipratropium (Duoneb 3 Mg/0.5 Mg (3 Ml) Ud) 3 ml INH RQID BEBE Artificial Tears (Artificial Tears) 1 drop OU QID [facility] Aspirin (Aspirin Chewable) 81 mg PEG DAILY [facility] Heparin Sodium (Porcine) (Heparin) 5,000 units SC Q8 BEBE PRN Reason: Protocol Sodium Chloride (Sodium Chloride 0.9%) 1,000 mls @ 500 mls/hr IV .Q2H BEBE Stop: 08/18/17 05:21 Last Admin: 08/17/17 05:28 Dose: 500 mls/hr Norepinephrine Bitartrate 8 mg (/ Dextrose) 258 mls @ 4.83 mls/hr IV .Q24H ONE ; 2.5 MCG/MIN PRN Reason: Protocol Stop: 08/18/17 05:45 Latanoprost (Xalatan Opht) 1 drop OU DAILY BEBE Pantoprazole Sodium (Protonix Susp) 40 mg PO DAILY BEBE Physical Exam - Constitutional Appears: Cachectic, Chronically Ill - Head Exam Head Exam: ATRAUMATIC, NORMOCEPHALIC - ENT Exam ENT Exam: Mucous Membranes Dry - Neck Exam Neck exam: Positive for: Normal Inspection Additional comments: RIJ HD cath - Respiratory Exam Respiratory Exam: Rhonchi, Wheezes - Cardiovascular Exam Cardiovascular Exam: Tachycardia, +S1, +S2 - GI/Abdominal Exam GI & Abdominal Exam: Normal Bowel Sounds, Soft Additional comments: PEG tube - Extremities Exam Extremities exam: Positive for: pedal edema - Neurological Exam Additional comments: dementia, opens eyes to voice/touch, otherwise not oriented or interactive - Skin Additional comments: multiple areas of skin breakdown on legs/buttocks Results - Vital Signs Recent Vital Signs: Last Vital Signs Temp 101.2 F H 08/17/17 03:20 Pulse 105 H 08/17/17 06:00 Resp 32 H 08/17/17 06:00 BP 78/47 L 08/17/17 06:00 Pulse Ox 93 L 08/17/17 06:00 - Labs Result Diagrams: 08/17/17 03:50 08/17/17 03:50 Labs: Laboratory Results - last 24 hr 08/17/17 08/17/17 08/17/17 03:42 03:45 03:50 WBC 6.4 RBC 4.41 Hgb 13.3 D Hct 40.9 MCV 92.6 D MCH 30.1 MCHC 32.5 L RDW 20.4 H Plt Count 191 MPV 9.8 Neut % (Auto) 77.5 H Lymph % (Auto) 7.9 L [place] % (Auto) 13.8 H Eos % (Auto) 0.4 Baso % (Auto) 0.4 Neut # 5.0 Lymph # 0.5 L [place] # 0.9 H Eos # 0.0 Baso # 0.0 PT INR APTT pO2 25 L VBG pH 7.44 H VBG pCO2 39 L VBG HCO3 25.4 VBG Total CO2 27.7 VBG O2 Sat (Calc) 48.2 VBG Base Excess 2.3 H VBG Potassium 3.6 Sodium 137.0 Chloride 102.0 Glucose 155 H Lactate 3.3 H FiO2 21.0 Crit Value Called To alisia Martinez md Crit Value Called By Tamra castillo Crit Value Read Back Y Blood Gas Notified Time 354 Potassium Carbon Dioxide Anion Gap BUN Creatinine Est GFR ( Amer) Est GFR (Non-Af Amer) POC Glucose (mg/dL) 137 H Random Glucose Calcium Phosphorus Magnesium Total Bilirubin AST ALT Alkaline Phosphatase Total Protein Albumin Globulin Albumin/Globulin Ratio Venous Blood Potassium 3.6 08/17/17 08/17/17 03:50 03:50 WBC RBC Hgb Hct MCV MCH MCHC RDW Plt Count MPV Neut % (Auto) Lymph % (Auto) [place] % (Auto) Eos % (Auto) Baso % (Auto) Neut # Lymph # [place] # Eos # Baso # PT 12.0 INR 1.1 APTT 32.0 pO2 VBG pH VBG pCO2 VBG HCO3 VBG Total CO2 VBG O2 Sat (Calc) VBG Base Excess VBG Potassium Sodium 140 Chloride 103 Glucose Lactate FiO2 Crit Value Called To Crit Value Called By Crit Value Read Back Blood Gas Notified Time Potassium 3.6 Carbon Dioxide 27 Anion Gap 14 BUN 81 H Creatinine 3.4 H Est GFR ( Amer) 16 Est GFR (Non-Af Amer) 13 POC Glucose (mg/dL) Random Glucose 147 H Calcium 9.4 Phosphorus 3.1 Magnesium 2.2 Total Bilirubin 0.4 AST 169 H D ALT 160 H D Alkaline Phosphatase 206 H D Total Protein 6.7 Albumin 3.0 L Globulin 3.7 Albumin/Globulin Ratio 0.8 L Venous Blood Potassium - Imaging and Cardiology Chest x-ray Status: Image reviewed by me (RML PNA) Assessment & Plan (1) HCAP (healthcare-associated pneumonia) Assessment and Plan: 82 y/o female with ESRD and ?diastolic CHF who is here with likely HCAP and severe sepsis. 1) HCAP/Severe Sepsis -Admit to ICU -Continue Vanc/Cefepime; Vanc may need to be dosed with HD, would add 2nd agent for Pseudomonas cvg as well -- cipro -Duonebs scheduled -Receiving IVF; reassess respiratory status after these finish before continuing , given ?diastolic dysfunction -Supplemental O2 -f/u culture results -Keep NPO for now in case needs intubation -Consider ID consult (seen in past by Dr. Perez 2) ESRD on HD T//Mon -Consult Nephrology for HD -Renal dosing of all medications 3) DVT PPx -- SQ heparin Status: Acute (2) Severe sepsis Status: Acute (3) ESRD (end stage renal disease) on dialysis Status: Acute (4) DVT prophylaxis Status: Acute
[2017-08-17] MEDS ORDERED: Ciprofloxacin 400mg/200ml D5W 400 MG/200 ML BAG IVPB STA (07:26)
[2017-08-17 07:50] LABS: EOSINOPHIL 3 % (0-7); NEUTROPHIL 79 % (42-75); TOTAL CELLS COUNTED 100
[2017-08-17] MEDS: Albuterol-Ipratrop 3 mg / 0.5 (3 ml) UD INH SCH ×4 (08:05→19:22)
[2017-08-17 08:10] LABS: VENOUS BLOOD GAS BASE EXCESS -0.2 mmol/L (0.0-2.0); VENOUS BLOOD GAS PCO2 37 mmHg (40-60); VENOUS BLOOD PH 7.42 (7.32-7.43)
[2017-08-17] MEDS: Latanoprost 0.005% Opht SOUTION OU SCH (08:57)
[2017-08-17] MEDS: Pantoprazole 40 mg Susp UD PO SCH (08:58)
[2017-08-17] MEDS ORDERED: CARBOXYMETHYLCELLULOSE SODIUM OU SCH (09:00)
--- NOTE | 2017-08-17 09:25 | RAD ---
HISTORY: Sepsis Patient COMPARISON: Frontal chest radiograph 06/12/2017. FINDINGS: Tunneled right central venous dialysis catheter unchanged in position. LUNGS: Bilateral perihilar vascular prominence is appreciate suspicious for pulmonary venous congestion/ CHF. Underlying airspace disease not excluded in the same distribution as well as medial right base. No pleural effusion bilaterally or pneumothorax. Cardiac size appears stable. OSSEOUS STRUCTURES: No significant abnormalities. VISUALIZED UPPER ABDOMEN: Normal. OTHER FINDINGS: None. IMPRESSION: CHF is favored over acute multifocal pneumonia though the latter is not excluded. Continued clinical and radiographic monitoring are advised.
[2017-08-17] MEDS ORDERED: Sodium Chloride 3% for Inhalation 4 ML VIAL.NEB IH PRN (09:47)
[2017-08-17 11:01] VITALS: O2SAT 100
[2017-08-17] MEDS: Artificial Tears Opht Soln OU SCH ×4 (11:20→21:39)
[2017-08-17] MEDS: Sodium Chloride 0.9% 1,000 ML IV SCH ×2 (11:22→18:41)
--- NOTE | 2017-08-17 11:24 | CP.CCUPN ---
CCU Subjective - Physician Review Subjective (Free Text): F/u for initial Critical Care Consultation by Dr. Thompson: Appears sleeping, but easily opens eyes to verbal stimuli, not following commands nor is she conversant, family at bedside and listens to grandsons verbal name calling; states usual HD schedule is MWF. No obvious distress noted , BP is dependent on low dose Levophed at 2.5mcg/min, currently completing 1st liter of additional IV fluid challenge with NSS. Family states the diffuse loss of skin pigmentation occurred from a systemic allergic reaction and rash several weeks ago , now has residual pruritus. No further erythema, mew skin lesions nor any local irritation. Other vitals and I/O's reviewed. No fever spikes; fluid balance negative 0.35 Liters last 24H. SPO2 96% on RA. ROS: Unobtainable, nonverbal patient, lethargic. No other pertinent negs or positives on 10+ system review. PMSFH: All other Nursing and physician documentation reviewed to date; no new pertinent info noted relevant to current medical problems. EKG: sinus with short NV, rate 111, LAD/LAHB, Inverted Ts 1,L; poor R progression anteriorly. CXR: bilateral basilar pneumonitic interstitial changes (my Interp). IMPRESSION / MAJOR PROBLEMS NOW: 1. Acute Resp insuff 2 Pneumonia ( possible Aspiration type since family known to be feeding patient PO food in the NH despite PEG. ) 2. Dehydration / Hypovolemia 3. Severe Sepsis / Shock, r/o bacteremia 4. Mild Trop elevation, r/o AMI 5. ESRD on HD PLAN: 1. Additional fluid challenges and hydration. 2. Wean vasopressors 3. Empirics abx coverage with Vanco/ Cipro/ Maxipime, may need to re-dose post HD. 4. Cardio eval, last ECHO 05/2017 reviewed: EF 65%, with DDysfx. 5. Hold Lisinopril 6. Follow repeat LFTS 7. Clarify any Advance Directives. CCU Objective - Vital Signs / Intake & Output Vital Signs (Last 4 hours): Vital Signs Temp Pulse Resp BP Pulse Ox 08/17/17 11:00 100 H 8 L 98/55 L 100 08/17/17 10:00 100 H 11 L 109/62 100 08/17/17 09:00 97 H 21 91/35 L 100 08/17/17 08:00 99.1 F 99 H 9 L 93/43 L 95 Intake and Output (Last 8hrs): Intake & Output 08/16/17 08/17/17 08/17/17 22:59 06:59 14:59 Intake Total 2300 Balance 2300 Weight 150 lb Intake: IV 2000 Intake, Piggyback 300 - Physical Exam Physical Exam Limitations: Positive for: Altered Mental Status Head: Positive for: Normocephalic Pupils: Positive for: PERRL Extroacular Muscles: Positive for: EOMI Conjunctiva: Positive for: Normal. Negative for: Icteric Mouth: Negative for: Moist Mucous Membranes Neck: Positive for: Normal Range of Motion. Negative for: Meningeal Signs, JVD Respiratory/Chest: Positive for: Rales. Negative for: Wheezes Cardiovascular: Positive for: Normal S1, S2, Irregular Rhythm, Tachycardic. Negative for: Murmurs, Rub Lower Extremity: Positive for: Edema (minimal), Cyanosis. Negative for: CALF TENDERNESS, NORMAL PULSES Skin: Positive for: Warm, Dry. Negative for: Rashes - Medications Active Medications: Active Medications Generic Name Dose Route Start Last Admin Trade Name Freq PRN Reason Stop Dose Admin Acetaminophen 650 mg 08/17/17 05:53 Tylenol 325mg Tab PO Q6H PRN Fever >100.4 F Albuterol/Ipratropium 3 ml 08/17/17 08:00 08/17/17 08:05 Duoneb 3 Mg/0.5 Mg (3 Ml) Ud INH 3 ml RQID BEBE Administration Artificial Tears 1 drop 08/17/17 09:00 Artificial Tears OU QID BEBE Aspirin 81 mg 08/17/17 09:00 Aspirin Chewable PEG DAILY BEBE Collagenase 1 applic 08/17/17 11:15 Santyl TOP DAILY BEBE Heparin Sodium (Porcine) 5,000 units 08/17/17 09:00 08/17/17 09:55 Heparin SC 5,000 units Q8 BEBE Administration Protocol Sodium Chloride 1,000 mls @ 500 mls/hr 08/17/17 05:30 08/17/17 05:28 Sodium Chloride 0.9% IV 08/18/17 05:21 500 mls/hr .Q2H BEEB Administration Norepinephrine Bitartrate 8 mg 258 mls @ 4.83 mls/hr 08/17/17 05:46 08/17/17 09:50 / Dextrose IV 08/18/17 05:45 7.5 mcg/min .Q24H ONE 14.51 mls/hr Protocol Titration 2.5 MCG/MIN Sodium Chloride 1,000 mls @ 150 mls/hr 08/17/17 11:00 Sodium Chloride 0.9% IV 08/18/17 11:01 .Q6H40M BEBE Latanoprost 1 drop 08/17/17 09:00 08/17/17 08:57 Xalatan Opht OU 1 drop DAILY BEBE Administration Loratadine 10 mg 08/17/17 11:00 Claritin Oral Soln 1mg/Ml PEG DAILY BEBE Pantoprazole Sodium 40 mg 08/17/17 09:00 08/17/17 08:58 Protonix Susp PO 40 mg DAILY BEBE Administration - Patient Studies Lab Studies: Lab Studies 08/17/17 08/17/17 08/17/17 Range/Units 08:21 08:21 08:09 WBC (4.8-10.8) K/uL RBC (3.80-5.20) Mil/uL Hgb (12.0-16.0) g/dL Hct (34.0-47.0) % MCV (81.0-99.0) fl MCH (27.0-31.0) pg MCHC (33.0-37.0) g/dL RDW (11.5-14.5) % Plt Count (130-400) K/uL MPV (7.2-11.7) fl Neut % (Auto) (50.0-75.0) % Lymph % (Auto) (20.0-40.0) % [place] % (Auto) (0.0-10.0) % Eos % (Auto) (0.0-4.0) % Baso % (Auto) (0.0-2.0) % Neut # (1.8-7.0) K/uL Lymph # (1.0-4.3) K/uL [place] # (0.0-0.8) K/uL Eos # (0.0-0.7) K/uL Baso # (0.0-0.2) K/uL Neutrophils % (Manual) (42-75) % Band Neutrophils % (0-2) % Lymphocytes % (Manual) (20-50) % Monocytes % (Manual) (0-10) % Eosinophils % (Manual) (0-7) % Toxic Granulation Platelet Estimate (NORMAL) Anisocytosis (manual) PT (9.8-13.1) Seconds INR (0.9-1.2) APTT (25.6-37.1) Seconds pO2 47 (30-55) mm/Hg VBG pH 7.42 (7.32-7.43) VBG pCO2 37 L (40-60) mmHg VBG HCO3 24.4 mmol/L VBG Total CO2 25.1 (22-28) mmol/L VBG O2 Sat (Calc) 86.9 H (40-65) % VBG Base Excess -0.2 L (0.0-2.0) mmol/L VBG Potassium 3.3 L (3.6-5.2) mmol/L A-a O2 Difference 620.0 mm/Hg Sodium 139.0 (132-148) mmol/L Chloride 105.0 (98-107) mmol/L Glucose 150 H (65-105) mg/dL Lactate 2.1 (0.7-2.1) mmol/L FiO2 100.0 % Crit Value Called To Crit Value Called By Crit Value Read Back Blood Gas Notified Time Potassium (3.6-5.0) MMOL/L Carbon Dioxide (22-30) mmol/L Anion Gap (10-20) BUN (7-17) mg/dl Creatinine (0.7-1.2) mg/dl Est GFR ( Amer) Est GFR (Non-Af Amer) POC Glucose (mg/dL) (65-110) mg/dL Random Glucose (65-105) mg/dL Lactic Acid (0.7-2.1) MMOL/L Calcium (8.4-10.2) mg/dL Phosphorus (2.5-4.5) mg/dl Magnesium (1.6-2.3) MG/DL Total Bilirubin (0.2-1.3) mg/dl AST (14-36) U/L ALT (9-52) U/L Alkaline Phosphatase (38-126) U/L Troponin I 0.8440 H* (0.00-0.120) ng/mL Total Protein (6.3-8.2) G/DL Albumin (3.5-5.0) g/dL Globulin (2.2-3.9) gm/dL Albumin/Globulin Ratio (1.0-2.1) Venous Blood Potassium 3.3 L (3.6-5.2) mmol/L Influenza Typ A,B (EIA) Negative for flu a/b (NEGATIVE) 08/17/17 08/17/17 08/17/17 Range/Units 07:20 03:50 03:50 WBC (4.8-10.8) K/uL RBC (3.80-5.20) Mil/uL Hgb (12.0-16.0) g/dL Hct (34.0-47.0) % MCV (81.0-99.0) fl MCH (27.0-31.0) pg MCHC (33.0-37.0) g/dL RDW (11.5-14.5) % Plt Count (130-400) K/uL MPV (7.2-11.7) fl Neut % (Auto) (50.0-75.0) % Lymph % (Auto) (20.0-40.0) % [place] % (Auto) (0.0-10.0) % Eos % (Auto) (0.0-4.0) % Baso % (Auto) (0.0-2.0) % Neut # (1.8-7.0) K/uL Lymph # (1.0-4.3) K/uL [place] # (0.0-0.8) K/uL Eos # (0.0-0.7) K/uL Baso # (0.0-0.2) K/uL Neutrophils % (Manual) (42-75) % Band Neutrophils % (0-2) % Lymphocytes % (Manual) (20-50) % Monocytes % (Manual) (0-10) % Eosinophils % (Manual) (0-7) % Toxic Granulation Platelet Estimate (NORMAL) Anisocytosis (manual) PT 12.0 (9.8-13.1) Seconds INR 1.1 (0.9-1.2) APTT 32.0 (25.6-37.1) Seconds pO2 (30-55) mm/Hg VBG pH (7.32-7.43) VBG pCO2 (40-60) mmHg VBG HCO3 mmol/L VBG Total CO2 (22-28) mmol/L VBG O2 Sat (Calc) (40-65) % VBG Base Excess (0.0-2.0) mmol/L VBG Potassium (3.6-5.2) mmol/L A-a O2 Difference mm/Hg Sodium 140 (132-148) mmol/L Chloride 103 (98-107) mmol/L Glucose (65-105) mg/dL Lactate (0.7-2.1) mmol/L FiO2 % Crit Value Called To Crit Value Called By Crit Value Read Back Blood Gas Notified Time Potassium 3.6 (3.6-5.0) MMOL/L Carbon Dioxide 27 (22-30) mmol/L Anion Gap 14 (10-20) BUN 81 H (7-17) mg/dl Creatinine 3.4 H (0.7-1.2) mg/dl Est GFR ( Amer) 16 Est GFR (Non-Af Amer) 13 POC Glucose (mg/dL) (65-110) mg/dL Random Glucose 147 H (65-105) mg/dL Lactic Acid 2.4 H (0.7-2.1) MMOL/L Calcium 9.4 (8.4-10.2) mg/dL Phosphorus 3.1 (2.5-4.5) mg/dl Magnesium 2.2 (1.6-2.3) MG/DL Total Bilirubin 0.4 (0.2-1.3) mg/dl AST 169 H D (14-36) U/L ALT 160 H D (9-52) U/L Alkaline Phosphatase 206 H D (38-126) U/L Troponin I (0.00-0.120) ng/mL Total Protein 6.7 (6.3-8.2) G/DL Albumin 3.0 L (3.5-5.0) g/dL Globulin 3.7 (2.2-3.9) gm/dL Albumin/Globulin Ratio 0.8 L (1.0-2.1) Venous Blood Potassium (3.6-5.2) mmol/L Influenza Typ A,B (EIA) (NEGATIVE) 08/17/17 08/17/17 08/17/17 Range/Units 03:50 03:45 03:42 WBC 6.4 (4.8-10.8) K/uL RBC 4.41 (3.80-5.20) Mil/uL Hgb 13.3 D (12.0-16.0) g/dL Hct 40.9 (34.0-47.0) % MCV 92.6 D (81.0-99.0) fl MCH 30.1 (27.0-31.0) pg MCHC 32.5 L (33.0-37.0) g/dL RDW 20.4 H (11.5-14.5) % Plt Count 191 (130-400) K/uL MPV 9.8 (7.2-11.7) fl Neut % (Auto) 77.5 H (50.0-75.0) % Lymph % (Auto) 7.9 L (20.0-40.0) % [place] % (Auto) 13.8 H (0.0-10.0) % Eos % (Auto) 0.4 (0.0-4.0) % Baso % (Auto) 0.4 (0.0-2.0) % Neut # 5.0 (1.8-7.0) K/uL Lymph # 0.5 L (1.0-4.3) K/uL [place] # 0.9 H (0.0-0.8) K/uL Eos # 0.0 (0.0-0.7) K/uL Baso # 0.0 (0.0-0.2) K/uL Neutrophils % (Manual) 79 H (42-75) % Band Neutrophils % 2 (0-2) % Lymphocytes % (Manual) 7 L (20-50) % Monocytes % (Manual) 9 (0-10) % Eosinophils % (Manual) 3 (0-7) % Toxic Granulation Present Platelet Estimate Normal (NORMAL) Anisocytosis (manual) Slight PT (9.8-13.1) Seconds INR (0.9-1.2) APTT (25.6-37.1) Seconds pO2 25 L (30-55) mm/Hg VBG pH 7.44 H (7.32-7.43) VBG pCO2 39 L (40-60) mmHg VBG HCO3 25.4 mmol/L VBG Total CO2 27.7 (22-28) mmol/L VBG O2 Sat (Calc) 48.2 (40-65) % VBG Base Excess 2.3 H (0.0-2.0) mmol/L VBG Potassium 3.6 (3.6-5.2) mmol/L A-a O2 Difference mm/Hg Sodium 137.0 (132-148) mmol/L Chloride 102.0 (98-107) mmol/L Glucose 155 H (65-105) mg/dL Lactate 3.3 H (0.7-2.1) mmol/L FiO2 21.0 % Crit Value Called To alisia Martinez md Crit Value Called By Tamra castillo Crit Value Read Back Y Blood Gas Notified Time 354 Potassium (3.6-5.0) MMOL/L Carbon Dioxide (22-30) mmol/L Anion Gap (10-20) BUN (7-17) mg/dl Creatinine (0.7-1.2) mg/dl Est GFR ( Amer) Est GFR (Non-Af Amer) POC Glucose (mg/dL) 137 H (65-110) mg/dL Random Glucose (65-105) mg/dL Lactic Acid (0.7-2.1) MMOL/L Calcium (8.4-10.2) mg/dL Phosphorus (2.5-4.5) mg/dl Magnesium (1.6-2.3) MG/DL Total Bilirubin (0.2-1.3) mg/dl AST (14-36) U/L ALT (9-52) U/L Alkaline Phosphatase (38-126) U/L Troponin I (0.00-0.120) ng/mL Total Protein (6.3-8.2) G/DL Albumin (3.5-5.0) g/dL Globulin (2.2-3.9) gm/dL Albumin/Globulin Ratio (1.0-2.1) Venous Blood Potassium 3.6 (3.6-5.2) mmol/L Influenza Typ A,B (EIA) (NEGATIVE) Laboratory Results - last 24 hr 08/17/17 08/17/17 08/17/17 03:42 03:45 03:50 WBC 6.4 RBC 4.41 Hgb 13.3 D Hct 40.9 MCV 92.6 D MCH 30.1 MCHC 32.5 L RDW 20.4 H Plt Count 191 MPV 9.8 Neut % (Auto) 77.5 H Lymph % (Auto) 7.9 L [place] % (Auto) 13.8 H Eos % (Auto) 0.4 Baso % (Auto) 0.4 Neut # 5.0 Lymph # 0.5 L [place] # 0.9 H Eos # 0.0 Baso # 0.0 Neutrophils % (Manual) 79 H Band Neutrophils % 2 Lymphocytes % (Manual) 7 L Monocytes % (Manual) 9 Eosinophils % (Manual) 3 Toxic Granulation Present Platelet Estimate Normal Anisocytosis (manual) Slight PT INR APTT pO2 25 L VBG pH 7.44 H VBG pCO2 39 L VBG HCO3 25.4 VBG Total CO2 27.7 VBG O2 Sat (Calc) 48.2 VBG Base Excess 2.3 H VBG Potassium 3.6 A-a O2 Difference Sodium 137.0 Chloride 102.0 Glucose 155 H Lactate 3.3 H FiO2 21.0 Crit Value Called To alisia Martinez md Crit Value Called By [facility] Crit Value Read Back Y Blood Gas Notified Time 354 Potassium Carbon Dioxide Anion Gap BUN Creatinine Est GFR ( Amer) Est GFR (Non-Af Amer) POC Glucose (mg/dL) 137 H Random Glucose Lactic Acid Calcium Phosphorus Magnesium Total Bilirubin AST ALT Alkaline Phosphatase Troponin I Total Protein Albumin Globulin Albumin/Globulin Ratio Venous Blood Potassium 3.6 Influenza Typ A,B (EIA) 08/17/17 08/17/17 08/17/17 03:50 03:50 07:20 WBC RBC Hgb Hct MCV MCH MCHC RDW Plt Count MPV Neut % (Auto) Lymph % (Auto) [place] % (Auto) Eos % (Auto) Baso % (Auto) Neut # Lymph # [place] # Eos # Baso # Neutrophils % (Manual) Band Neutrophils % Lymphocytes % (Manual) Monocytes % (Manual) Eosinophils % (Manual) Toxic Granulation Platelet Estimate Anisocytosis (manual) PT 12.0 INR 1.1 APTT 32.0 pO2 VBG pH VBG pCO2 VBG HCO3 VBG Total CO2 VBG O2 Sat (Calc) VBG Base Excess VBG Potassium A-a O2 Difference Sodium 140 Chloride 103 Glucose Lactate FiO2 Crit Value Called To Crit Value Called By Crit Value Read Back Blood Gas Notified Time Potassium 3.6 Carbon Dioxide 27 Anion Gap 14 BUN 81 H Creatinine 3.4 H Est GFR ( Amer) 16 Est GFR (Non-Af Amer) 13 POC Glucose (mg/dL) Random Glucose 147 H Lactic Acid 2.4 H Calcium 9.4 Phosphorus 3.1 Magnesium 2.2 Total Bilirubin 0.4 AST 169 H D ALT 160 H D Alkaline Phosphatase 206 H D Troponin I Total Protein 6.7 Albumin 3.0 L Globulin 3.7 Albumin/Globulin Ratio 0.8 L Venous Blood Potassium Influenza Typ A,B (EIA) 08/17/17 08/17/17 08/17/17 08:09 08:21 08:21 WBC RBC Hgb Hct MCV MCH MCHC RDW Plt Count MPV Neut % (Auto) Lymph % (Auto) [place] % (Auto) Eos % (Auto) Baso % (Auto) Neut # Lymph # [place] # Eos # Baso # Neutrophils % (Manual) Band Neutrophils % Lymphocytes % (Manual) Monocytes % (Manual) Eosinophils % (Manual) Toxic Granulation Platelet Estimate Anisocytosis (manual) PT INR APTT pO2 47 VBG pH 7.42 VBG pCO2 37 L VBG HCO3 24.4 VBG Total CO2 25.1 VBG O2 Sat (Calc) 86.9 H VBG Base Excess -0.2 L VBG Potassium 3.3 L A-a O2 Difference 620.0 Sodium 139.0 Chloride 105.0 Glucose 150 H Lactate 2.1 FiO2 100.0 Crit Value Called To Crit Value Called By Crit Value Read Back Blood Gas Notified Time Potassium Carbon Dioxide Anion Gap BUN Creatinine Est GFR ( Amer) Est GFR (Non-Af Amer) POC Glucose (mg/dL) Random Glucose Lactic Acid Calcium Phosphorus Magnesium Total Bilirubin AST ALT Alkaline Phosphatase Troponin I 0.8440 H* Total Protein Albumin Globulin Albumin/Globulin Ratio Venous Blood Potassium 3.3 L Influenza Typ A,B (EIA) Negative for flu a/b Radiology Interpretations (Free Text): See Above EKG/Cardiology Studies: See Above Critical Care Progress Note - Nutrition Nutrition: Nutrition Category Date Time Status NPO Diet [DIET] Diets 08/17/17 Breakfast Active
--- NOTE | 2017-08-17 11:24 | CP.PCM.CON ---
History of Present Illness - History of Present Illness History of Present Illness: THE PATIENT IS AN 82 YEAR OLD FEMALE WITH A HISTORY OF DEMENTIA, HTN, CRF ON HD AND SHE HAS HAD RECENT ADMISSIONS TO BOTH [facility] AND RECENTLY. SHE WAS HERE RECENTLY AND HAD AN ECHOCARDIOGRAM THAT SHOWED A LVEF OF 60% AND SHE HAD AN EKG THAT SHOWED SINUS RHYTHM AND A LBBB. SHE WAS IN A RESIDENTIAL AND HAD A FEVER AND WAS STARTED ON LEVAQUIN THE OTHER DAY BUT THE FEVER PERSISTED AND SHE WAS SENT TO [facility] ER WHERE SHE WAS FOUND TO HAVE PNEUMONIA WITH SEPSIS AND WAS STARTED ON IV ANTIBIOTICS AND SHE WAS ALSO HYPOTENSIVE WITH A SYSTOLIC BP OF 78 SO SHE WAS ALSO GIVEN IV FLUIDS AND STARTED ON IV EPINEPHRINE. CARDIOLOGY WAS CALLED TO SEE HER BECAUSE OF AN ELEVATED TROPONIN OF 0.88. SHE IS UNABLE TO GIVE ME ANY HISTORY HERSELF DUE TO HER DEMENTIA. Past Patient History - Past Medical History & Family History Past Medical History?: Yes - Past Social History Smoking Status: Never Smoked - CARDIAC Hx Congestive Heart Failure: Yes Hx Hypertension: Yes Hx Peripheral Edema: Yes - PULMONARY Hx Respiratory Disorders: No - NEUROLOGICAL Hx Dementia: Yes - HEENT Hx HEENT Problems: Yes - RENAL Hx Chronic Kidney Disease: Yes Hx Dialysis: Yes Type of Dialysis Access: right SVC permcath - ENDOCRINE/METABOLIC Hx Endocrine Disorders: Yes (enlarged thyroid) Hx Diabetes Mellitus Type 2: Yes - HEMATOLOGICAL/ONCOLOGICAL Hx AIDS: No Hx Human Immunodeficiency Virus (HIV): No - INTEGUMENTARY Hx Dermatological Problems: Yes (generalized pruritus) - MUSCULOSKELETAL/RHEUMATOLOGICAL Hx Falls: No - GASTROINTESTINAL Hx Gastrointestinal Disorders: No Other/Comment: PEG - GENITOURINARY/GYNECOLOGICAL Hx Genitourinary Disorders: No - PSYCHIATRIC Hx Substance Use: No - SURGICAL HISTORY Hx Surgeries: Yes Other/Comment: 1993 THYROID SX - ANESTHESIA Hx Anesthesia: Yes Hx Anesthesia Reactions: No Hx Malignant Hyperthermia: No Meds Allergies/Adverse Reactions: Allergies Allergy/AdvReac Type Severity Reaction Status Date / Time No Known Allergies Allergy Verified 03/04/17 01:13 - Medications Medications: Current Medications Acetaminophen (Tylenol 325mg Tab) 650 mg PO Q6H PRN PRN Reason: Fever >100.4 F Albuterol/Ipratropium (Duoneb 3 Mg/0.5 Mg (3 Ml) Ud) 3 ml INH RQID BEBE Last Admin: 08/17/17 08:05 Dose: 3 ml Artificial Tears (Artificial Tears) 1 drop OU QID [facility] Aspirin (Aspirin Chewable) 81 mg PEG DAILY [facility] Collagenase (Santyl) 1 applic TOP DAILY [facility] Heparin Sodium (Porcine) (Heparin) 5,000 units SC Q8 BEBE PRN Reason: Protocol Last Admin: 08/17/17 09:55 Dose: 5,000 units Sodium Chloride (Sodium Chloride 0.9%) 1,000 mls @ 500 mls/hr IV .Q2H BEBE Stop: 08/18/17 05:21 Last Admin: 08/17/17 05:28 Dose: 500 mls/hr Norepinephrine Bitartrate 8 mg (/ Dextrose) 258 mls @ 4.83 mls/hr IV .Q24H ONE ; 2.5 MCG/MIN PRN Reason: Protocol Stop: 08/18/17 05:45 Last Titration: 08/17/17 09:50 Dose: 7.5 mcg/min, 14.51 mls/hr Sodium Chloride (Sodium Chloride 0.9%) 1,000 mls @ 150 mls/hr IV .Q6H40M [facility] Stop: 08/18/17 11:01 Latanoprost (Xalatan Opht) 1 drop OU DAILY [facility] Last Admin: 08/17/17 08:57 Dose: 1 drop Loratadine (Claritin Oral Soln 1mg/Ml) 10 mg PEG DAILY [facility] Pantoprazole Sodium (Protonix Susp) 40 mg PO DAILY [facility] Last Admin: 08/17/17 08:58 Dose: 40 mg Physical Exam - Respiratory Exam Respiratory Exam: Rales - Cardiovascular Exam Cardiovascular Exam: REGULAR RHYTHM, +S1, +S2 - Extremities Exam Additional comments: NO SIGNIFICANT LE EDEMA - Additional Findings Additional findings: EKG READ BY MACHINE ACCELERATED JUNCTIONAL RHYTHM AT A RATE OF 111 BPM, BUT UPON CLOSE INSPECTION SOME P WAVES CAN BE SEE WITH A SHORT MN INTERVAL, ONE PVC , T WAVE INVERSIONS IN LEADS I AND L AND ~ 2MM ST ELEVATION BUT CONCAVE UP IN LIMB LEAD III TROPONIN # 1 0.88 CXR REPORT NOTED BUT IN MY OPINION THE PATIENT HAD RLL PNEUMONIA COMPARED TO PRIOR CXRAYS BP NOW IS 109/62 AFTER 2 L OF IV FLUIDS Results - Vital Signs Recent Vital Signs: Last Vital Signs Temp 99.1 F 08/17/17 08:00 Pulse 100 H 08/17/17 11:00 Resp 8 L 08/17/17 11:00 BP 98/55 L 08/17/17 11:00 Pulse Ox 100 08/17/17 11:00 - Labs Result Diagrams: 08/17/17 03:50 08/17/17 03:50 Labs: Laboratory Results - last 24 hr 08/17/17 08/17/17 08/17/17 03:42 03:45 03:50 WBC 6.4 RBC 4.41 Hgb 13.3 D Hct 40.9 MCV 92.6 D MCH 30.1 MCHC 32.5 L RDW 20.4 H Plt Count 191 MPV 9.8 Neut % (Auto) 77.5 H Lymph % (Auto) 7.9 L [place] % (Auto) 13.8 H Eos % (Auto) 0.4 Baso % (Auto) 0.4 Neut # 5.0 Lymph # 0.5 L [place] # 0.9 H Eos # 0.0 Baso # 0.0 Neutrophils % (Manual) 79 H Band Neutrophils % 2 Lymphocytes % (Manual) 7 L Monocytes % (Manual) 9 Eosinophils % (Manual) 3 Toxic Granulation Present Platelet Estimate Normal Anisocytosis (manual) Slight PT INR APTT pO2 25 L VBG pH 7.44 H VBG pCO2 39 L VBG HCO3 25.4 VBG Total CO2 27.7 VBG O2 Sat (Calc) 48.2 VBG Base Excess 2.3 H VBG Potassium 3.6 A-a O2 Difference Sodium 137.0 Chloride 102.0 Glucose 155 H Lactate 3.3 H FiO2 21.0 Crit Value Called To alisia Martinez md Crit Value Called By [facility] Crit Value Read Back Y Blood Gas Notified Time 354 Potassium Carbon Dioxide Anion Gap BUN Creatinine Est GFR ( Amer) Est GFR (Non-Af Amer) POC Glucose (mg/dL) 137 H Random Glucose Lactic Acid Calcium Phosphorus Magnesium Total Bilirubin AST ALT Alkaline Phosphatase Troponin I Total Protein Albumin Globulin Albumin/Globulin Ratio Venous Blood Potassium 3.6 Influenza Typ A,B (EIA) 08/17/17 08/17/17 08/17/17 03:50 03:50 07:20 WBC RBC Hgb Hct MCV MCH MCHC RDW Plt Count MPV Neut % (Auto) Lymph % (Auto) [place] % (Auto) Eos % (Auto) Baso % (Auto) Neut # Lymph # [place] # Eos # Baso # Neutrophils % (Manual) Band Neutrophils % Lymphocytes % (Manual) Monocytes % (Manual) Eosinophils % (Manual) Toxic Granulation Platelet Estimate Anisocytosis (manual) PT 12.0 INR 1.1 APTT 32.0 pO2 VBG pH VBG pCO2 VBG HCO3 VBG Total CO2 VBG O2 Sat (Calc) VBG Base Excess VBG Potassium A-a O2 Difference Sodium 140 Chloride 103 Glucose Lactate FiO2 Crit Value Called To Crit Value Called By Crit Value Read Back Blood Gas Notified Time Potassium 3.6 Carbon Dioxide 27 Anion Gap 14 BUN 81 H Creatinine 3.4 H Est GFR ( Amer) 16 Est GFR (Non-Af Amer) 13 POC Glucose (mg/dL) Random Glucose 147 H Lactic Acid 2.4 H Calcium 9.4 Phosphorus 3.1 Magnesium 2.2 Total Bilirubin 0.4 AST 169 H D ALT 160 H D Alkaline Phosphatase 206 H D Troponin I Total Protein 6.7 Albumin 3.0 L Globulin 3.7 Albumin/Globulin Ratio 0.8 L Venous Blood Potassium Influenza Typ A,B (EIA) 08/17/17 08/17/17 08/17/17 08:09 08:21 08:21 WBC RBC Hgb Hct MCV MCH MCHC RDW Plt Count MPV Neut % (Auto) Lymph % (Auto) [place] % (Auto) Eos % (Auto) Baso % (Auto) Neut # Lymph # Spencer # Eos # Baso # Neutrophils % (Manual) Band Neutrophils % Lymphocytes % (Manual) Monocytes % (Manual) Eosinophils % (Manual) Toxic Granulation Platelet Estimate Anisocytosis (manual) PT INR APTT pO2 47 VBG pH 7.42 VBG pCO2 37 L VBG HCO3 24.4 VBG Total CO2 25.1 VBG O2 Sat (Calc) 86.9 H VBG Base Excess -0.2 L VBG Potassium 3.3 L A-a O2 Difference 620.0 Sodium 139.0 Chloride 105.0 Glucose 150 H Lactate 2.1 FiO2 100.0 Crit Value Called To Crit Value Called By Crit Value Read Back Blood Gas Notified Time Potassium Carbon Dioxide Anion Gap BUN Creatinine Est GFR ( Amer) Est GFR (Non-Af Amer) POC Glucose (mg/dL) Random Glucose Lactic Acid Calcium Phosphorus Magnesium Total Bilirubin AST ALT Alkaline Phosphatase Troponin I 0.8440 H* Total Protein Albumin Globulin Albumin/Globulin Ratio Venous Blood Potassium 3.3 L Influenza Typ A,B (EIA) Negative for flu a/b Assessment & Plan - Assessment and Plan (Free Text) Assessment: PNEUMONIA WITH SEPSIS AND HYPOTENSION-HYPOTENSION IS IMPROVING WITH FLUID AND NOREPINEPHRINE CRF ON HD HISTORY OF HYPERTENSION IN THE PAST DEMENTIA THE ELEVATED TROPONIN IS MOST PROBABLY FROM A COMBINATION OF THE SEPSIS AND CRF OPPOSED TO AN DC PROGNOSIS IS GUARDED ON THIS FIRST DAY OF ADMISSION Plan: CONTINUE IV ANTIBIOTICS, IV FLUIDS, NOREPINEPHRINE, ASPIRIN AND HEPARIN BETA BLOCKERS NOT GIVEN DUE TO HYPOTENSION SERIAL EKGS AND TROPONINS THE FAMILY WAS AT THE BEDSIDE AND THEY WERE TOLD OF THE PATIENT'S SERIOUS MEDICAL CONDITION
--- NOTE | 2017-08-17 12:03 | CP.PCM.CON ---
History of Present Illness - History of Present Illness History of Present Illness: pt is seen and examined, full consult is dictated #[id number] 1. htn 2. RA 3. s/p TTP 4. ESRD 5.chf vs pneumonia c/w hd 3 x a week mwf iv abx check blood c/s Past Patient History - Past Medical History & Family History Past Medical History?: Yes - Past Social History Smoking Status: Never Smoked - CARDIAC Hx Congestive Heart Failure: Yes Hx Hypertension: Yes Hx Peripheral Edema: Yes - PULMONARY Hx Respiratory Disorders: No - NEUROLOGICAL Hx Dementia: Yes - HEENT Hx HEENT Problems: Yes - RENAL Hx Chronic Kidney Disease: Yes Hx Dialysis: Yes Type of Dialysis Access: right SVC permcath - ENDOCRINE/METABOLIC Hx Endocrine Disorders: Yes (enlarged thyroid) Hx Diabetes Mellitus Type 2: Yes - HEMATOLOGICAL/ONCOLOGICAL Hx AIDS: No Hx Human Immunodeficiency Virus (HIV): No - INTEGUMENTARY Hx Dermatological Problems: Yes (generalized pruritus) - MUSCULOSKELETAL/RHEUMATOLOGICAL Hx Falls: No - GASTROINTESTINAL Hx Gastrointestinal Disorders: No Other/Comment: PEG - GENITOURINARY/GYNECOLOGICAL Hx Genitourinary Disorders: No - PSYCHIATRIC Hx Substance Use: No - SURGICAL HISTORY Hx Surgeries: Yes Other/Comment: 1993 THYROID SX - ANESTHESIA Hx Anesthesia: Yes Hx Anesthesia Reactions: No Hx Malignant Hyperthermia: No Meds Allergies/Adverse Reactions: Allergies Allergy/AdvReac Type Severity Reaction Status Date / Time No Known Allergies Allergy Verified 03/04/17 01:13 - Medications Medications: Current Medications Acetaminophen (Tylenol 325mg Tab) 650 mg PO Q6H PRN PRN Reason: Fever >100.4 F Albuterol/Ipratropium (Duoneb 3 Mg/0.5 Mg (3 Ml) Ud) 3 ml INH RQID [facility] Last Admin: 08/17/17 08:05 Dose: 3 ml Artificial Tears (Artificial Tears) 1 drop OU QID [facility] Last Admin: 08/17/17 11:20 Dose: 1 drop Aspirin (Aspirin Chewable) 81 mg PEG DAILY [facility] Last Admin: 08/17/17 11:20 Dose: 81 mg Collagenase (Santyl) 1 applic TOP DAILY [facility] Heparin Sodium (Porcine) (Heparin) 5,000 units SC Q8 [facility] PRN Reason: Protocol Last Admin: 08/17/17 09:55 Dose: 5,000 units Sodium Chloride (Sodium Chloride 0.9%) 1,000 mls @ 500 mls/hr IV .Q2H [facility] Stop: 08/18/17 05:21 Last Admin: 08/17/17 05:28 Dose: 500 mls/hr Norepinephrine Bitartrate 8 mg (/ Dextrose) 258 mls @ 4.83 mls/hr IV .Q24H ONE ; 2.5 MCG/MIN PRN Reason: Protocol Stop: 08/18/17 05:45 Last Titration: 08/17/17 11:20 Dose: 10 mcg/min, 19.35 mls/hr Sodium Chloride (Sodium Chloride 0.9%) 1,000 mls @ 150 mls/hr IV .Q6H40M [facility] Stop: 08/18/17 11:01 Last Admin: 08/17/17 11:22 Dose: 150 mls/hr Latanoprost (Xalatan Opht) 1 drop OU DAILY [facility] Last Admin: 08/17/17 08:57 Dose: 1 drop Loratadine (Claritin Oral Soln 1mg/Ml) 10 mg PEG DAILY [facility] Pantoprazole Sodium (Protonix Susp) 40 mg PO DAILY [facility] Last Admin: 08/17/17 08:58 Dose: 40 mg Results - Vital Signs Recent Vital Signs: Last Vital Signs Temp 99.1 F 08/17/17 08:00 Pulse 100 H 08/17/17 11:00 Resp 8 L 08/17/17 11:00 BP 98/55 L 08/17/17 11:00 Pulse Ox 100 08/17/17 11:00 - Labs Result Diagrams: 08/17/17 03:50 08/17/17 03:50 Labs: Laboratory Results - last 24 hr 08/17/17 08/17/17 08/17/17 03:42 03:45 03:50 WBC 6.4 RBC 4.41 Hgb 13.3 D Hct 40.9 MCV 92.6 D MCH 30.1 MCHC 32.5 L RDW 20.4 H Plt Count 191 MPV 9.8 Neut % (Auto) 77.5 H Lymph % (Auto) 7.9 L Geary % (Auto) 13.8 H Eos % (Auto) 0.4 Baso % (Auto) 0.4 Neut # 5.0 Lymph # 0.5 L Geary # 0.9 H Eos # 0.0 Baso # 0.0 Neutrophils % (Manual) 79 H Band Neutrophils % 2 Lymphocytes % (Manual) 7 L Monocytes % (Manual) 9 Eosinophils % (Manual) 3 Toxic Granulation Present Platelet Estimate Normal Anisocytosis (manual) Slight PT INR APTT pO2 25 L VBG pH 7.44 H VBG pCO2 39 L VBG HCO3 25.4 VBG Total CO2 27.7 VBG O2 Sat (Calc) 48.2 VBG Base Excess 2.3 H VBG Potassium 3.6 A-a O2 Difference Sodium 137.0 Chloride 102.0 Glucose 155 H Lactate 3.3 H FiO2 21.0 Crit Value Called To alisia Martinez md Crit Value Called By Tamra castillo Crit Value Read Back Y Blood Gas Notified Time 354 Potassium Carbon Dioxide Anion Gap BUN Creatinine Est GFR ( Amer) Est GFR (Non-Af Amer) POC Glucose (mg/dL) 137 H Random Glucose Lactic Acid Calcium Phosphorus Magnesium Total Bilirubin AST ALT Alkaline Phosphatase Troponin I Total Protein Albumin Globulin Albumin/Globulin Ratio Venous Blood Potassium 3.6 Influenza Typ A,B (EIA) 08/17/17 08/17/17 08/17/17 03:50 03:50 07:20 WBC RBC Hgb Hct MCV MCH MCHC RDW Plt Count MPV Neut % (Auto) Lymph % (Auto) Geary % (Auto) Eos % (Auto) Baso % (Auto) Neut # Lymph # Geary # Eos # Baso # Neutrophils % (Manual) Band Neutrophils % Lymphocytes % (Manual) Monocytes % (Manual) Eosinophils % (Manual) Toxic Granulation Platelet Estimate Anisocytosis (manual) PT 12.0 INR 1.1 APTT 32.0 pO2 VBG pH VBG pCO2 VBG HCO3 VBG Total CO2 VBG O2 Sat (Calc) VBG Base Excess VBG Potassium A-a O2 Difference Sodium 140 Chloride 103 Glucose Lactate FiO2 Crit Value Called To Crit Value Called By Crit Value Read Back Blood Gas Notified Time Potassium 3.6 Carbon Dioxide 27 Anion Gap 14 BUN 81 H Creatinine 3.4 H Est GFR ( Amer) 16 Est GFR (Non-Af Amer) 13 POC Glucose (mg/dL) Random Glucose 147 H Lactic Acid 2.4 H Calcium 9.4 Phosphorus 3.1 Magnesium 2.2 Total Bilirubin 0.4 AST 169 H D ALT 160 H D Alkaline Phosphatase 206 H D Troponin I Total Protein 6.7 Albumin 3.0 L Globulin 3.7 Albumin/Globulin Ratio 0.8 L Venous Blood Potassium Influenza Typ A,B (EIA) 08/17/17 08/17/17 08/17/17 08:09 08:21 08:21 WBC RBC Hgb Hct MCV MCH MCHC RDW Plt Count MPV Neut % (Auto) Lymph % (Auto) Geary % (Auto) Eos % (Auto) Baso % (Auto) Neut # Lymph # Geary # Eos # Baso # Neutrophils % (Manual) Band Neutrophils % Lymphocytes % (Manual) Monocytes % (Manual) Eosinophils % (Manual) Toxic Granulation Platelet Estimate Anisocytosis (manual) PT INR APTT pO2 47 VBG pH 7.42 VBG pCO2 37 L VBG HCO3 24.4 VBG Total CO2 25.1 VBG O2 Sat (Calc) 86.9 H VBG Base Excess -0.2 L VBG Potassium 3.3 L A-a O2 Difference 620.0 Sodium 139.0 Chloride 105.0 Glucose 150 H Lactate 2.1 FiO2 100.0 Crit Value Called To Crit Value Called By Crit Value Read Back Blood Gas Notified Time Potassium Carbon Dioxide Anion Gap BUN Creatinine Est GFR ( Amer) Est GFR (Non-Af Amer) POC Glucose (mg/dL) Random Glucose Lactic Acid Calcium Phosphorus Magnesium Total Bilirubin AST ALT Alkaline Phosphatase Troponin I 0.8440 H* Total Protein Albumin Globulin Albumin/Globulin Ratio Venous Blood Potassium 3.3 L Influenza Typ A,B (EIA) Negative for flu a/b
[2017-08-17] MEDS: Santyl Collagenase OINTMENT TOP SCH (13:44)
[2017-08-17] MEDS: Loratadine 5 MG/5 ML ORAL SYRUP PEG SCH (13:44)
[2017-08-17] MEDS: Cefepime 1 GM in Sodium Chloride 0.9% 100 ML IVPB SCH (14:03)
--- NOTE | 2017-08-17 14:05 | PQF GENQUE ---
This form is a permanent part of the medical record 08/17/17 Dr. Blair, Please clarify if you concur with the dental aideserver service assistant or other explanation of findings. ER MD: Skin breakdown in sacral area. See nursing note for further detail. outbound telemarketing representative consult with the following documentation: The sacrum has an unstageable pressure injury of irregular shape. Santyl ordered. Clarification of your documentation is requested to better reflect the severity of illness and intensity of treatment of your patient. Indicators present [] Specify: [] [] Specify: [] [] Specify: [] [] Specify: [] Location in the medical record that reflects the above clinical findings: [] Treatment Provided: [] PHYSICIAN'S RESPONSE Based on your medical judgment of the clinical indicators outlined above please clarify the following: [x] Practitioner response unstageable sacral decubitus ulcer [] If unable to determine, please check the box, sign and date. Present On Admission (POA) Indicator: [] Present at the time of admission [] Not present at the time of admission [] Clinically Undetermined In responding to this query, please exercise your independent professional judgment. The fact that a question is asked does not imply that any particular answer is desired or expected. Thank you for your clarification on this documentation. If you have any questions please call:ext [phone] * Thank you, Yeny Rolon RN [facility]
--- NOTE | 2017-08-17 14:53 | HP ---
ADMITTING HISTORY AND PHYSICAL HISTORY OF PRESENT ILLNESS: Ms. Suzie Bellamy is an 82-year-old female who resides at [facility]. She was transferred to the emergency room and then to the Intensive Care Unit because of persistent fever and hypotension. She had a fever the morning of admission and was placed on Levaquin via the PEG tube. The temperature subsided, but then again she became febrile during the evening and blood pressure had dropped and she became barely responsive and was therefore transferred to the emergency room where she was worked up and found to have pneumonia. She has been fed by mouth family and was still receiving PEG feedings. PAST MEDICAL HISTORY: She has a past medical history of end-stage renal disease and dementia and no other history is obtained. PHYSICAL EXAMINATION: GENERAL: The patient is lethargic. VITAL SIGNS: Hypotensive with a blood pressure of 93/43, pulse of 99, respiration up to 32 per minute and O2 sat 95% on nasal cannula. SKIN: Shows poor turgor. HEENT: Mouth is dry. Pupils are reactive. LUNGS: Show coarse rales bilaterally. HEART: S1 and S2. ABDOMEN: Soft, nontender. No organomegaly appreciated. Has a PEG tube in place. EXTREMITIES: Dry, scaly skin. Otherwise unremarkable. RECTAL AND GENITAL: Unremarkable. CENTRAL NERVOUS SYSTEM: The patient is lethargic and barely arousable. LABORATORY DATA: Remarkable for chest x-ray that shows multifocal pneumonia with questionable congestive heart failure. EKG pending. The WBC 6.4, hemoglobin 13.3, platelet count of 191,000. Sodium 140, potassium 3.6, BUN 81, creatinine 3.4, troponin 0.8440. IMPRESSION: Pneumonia with septicemia, dehydration, end-stage renal disease, hypotension secondary to sepsis. The plan is intravenous hydration, intravenous antibiotic. The patient also has elevated hepatic function studies, probably secondary to sepsis. Case was discussed with the patient's grandson, who wants aggressive intervention including endotracheal intubation and ventilator care in case of cardiac or pulmonary arrest. The patient's prognosis is extremely guarded. We will continue therapy as ordered including Infectious Disease and Nephrology evaluation. One wound also obtain cardiac evaluation for elevated troponin level. Elliot Blair MD [facility] # [id number]
[2017-08-18] MEDS: Sodium Chloride 0.9% 1,000 ML IV SCH ×2 (01:04→06:55)
--- NOTE | 2017-08-18 05:24 | CON ---
DATE: RENAL CONSULTATION LOCATION: The patient is located in a room 433, bed 1. REQUESTED BY: Elliot Blair MD. REASON FOR CONSULTATION: End-stage renal disease, for continuation of the hemodialysis. HISTORY OF PRESENT ILLNESS: Mrs. 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 The patient was sent from [facility] with chief complaint of coughing and has been febrile for the last 2 days and the patient was started on Levaquin, but the fever still persists, prompting the ED visit. At baseline, the patient is with altered mental status, responds to 1 or 2 simple commands with the family. The patient is being dialyzed 3 times a week in the [facility]. Her T-max was 101.2 in the emergency room with hypotension, blood pressure 78/47, pulse 105, respirations 32, and saturation 93%. The patient is not responding to verbal stimuli, tried to resist move the hands on the chest. 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 PAST SURGICAL HISTORY: Status post multiple Perm-A-cath placement and also status post plasmapheresis x3. ALLERGIES: NO KNOWN DRUG ALLERGIES. QUESTIONABLE ALLERGY TO ANTIBIOTIC VANCOMYCIN. SOCIAL HISTORY: No smoking, no alcohol, no drugs. PERSONAL HISTORY: Resident of detention and the patient has a very supportive granddaughter, grandson and daughter. CURRENT MEDICATIONS: Include as follows: Artificial tears, aspirin 81 mg by PEG, cefepime 1 g daily, loratadine, Duoneb inhalers, subcutaneous heparin 5000 q. 8 hours, norepinephrine, Protonix 40 mg p.o. daily, Santyl Topical daily, IV fluids normal saline at 150 mL per hour, Tylenol, vancomycin 1 g and Xalatan eye drops. REVIEW OF SYSTEMS: Significant for fever, shortness of breath and altered mental status. All other review of systems are reviewed and are negative. PHYSICAL EXAMINATION: VITAL SIGNS: As follows. Blood pressure this morning is 93/43, pulse 99, respirations about 32, and temperature 99.1 and T-max is 101.3 in the emergency room on admission. Height 5 feet 1 inch, weight is 150 pounds. GENERAL: Mrs. Suzie Bellamy is 82-year-old elderly female, moderately built, moderately nourished, not in distress. Not responding to verbal stimuli. HEENT: Pupils are normal and reactive to light and accommodation. Conjunctivae are pink. Sclerae are anicteric. Legally blind. Tongue is moist. Trachea is midline. LUNGS: Symmetric on both sides. Bilateral breath sounds present. Clear on auscultation. CARDIOVASCULAR SYSTEM: Purling at the fifth intercostal space, midclavicular line. S1 and S2 audible. No murmur. No gallop. ABDOMEN: Status post PEG tube placement. Soft, tympanic. No guarding. No hepatosplenomegaly. CENTRAL NERVOUS SYSTEM: The patient is not responding to verbal stimuli and not arousable. Sensory system is within normal limits. Motor system, mostly bedridden for the last 6 months. EXTREMITIES: No cyanosis. No clubbing. No edema. SKIN: The patient has diffuse hypopigmented lesions on both upper and lower extremities. LABORATORY DATA: Include as follows: As of 08/17/2017, WBC 6.4, hemoglobin 13.3, hematocrit is 40.9, platelets 191, neutrophil 79, bands 2, lymph 7, monos 9, eosinophils 3. PT 12, PTT 32. VBG: pH of 7.44, pO2 of 25, and pCO2 of 39, bicarbs 25.4, saturations 48%. Sodium 137, potassium 3.6, chloride 102, and glucose 155. Lactic acid 3.3. Her chemistry: Sodium 140, potassium 3.6, chloride 103, CO2 of 27, BUN 81, creatinine 3.4, glucose 147, calcium 9.4, phosphorus 3.1, magnesium 2.2. Total bili 0.4. AST 169, ALT 160, alkaline phosphatase 206, total protein 6.7, albumin is 3.0. Influenza A and B are negative. Troponin 0.84. Other reports, chest x-ray as of 08/17/2017, impression, congestive heart failure is favored over acute multifocal pneumonia, though the latter is not excluded. Continued clinical and radiographic monitoring are advised. ASSESSMENT AND PLAN: In summary, Mrs. 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 Villanueva, who is the resident of detention and on hemodialysis for the last 6 months, was sent from the detention with shortness of breath, fever and altered mental status, which is at baseline, oriented x0 to 1 and bedridden for 6 months. 1. End-stage renal disease, continue hemodialysis 3 times a week. 2. Fever with shortness of breath, rule out aspiration pneumonia, rule out hospital-acquired pneumonia. 3. Hypotension, blood pressure is on the low side, continue pressors as needed and continue IV fluids, continue antibiotics. We will plan for hemodialysis in a.m. Overall prognosis is guarded. Check blood culture reports and repeat chest x-ray. Thank you for allowing me to participate in your patient's care and case discussed with Dr. Mack in rounds this morning. Eddie Augustine MD
[2017-08-18 05:55] LABS: ABG ALLEN TEST YES; ARTERIAL BLOOD GAS HCO3 21.1 mmol/L (21-28); ARTERIAL BLOOD GAS MODE NRM; ARTERIAL BLOOD GAS O2 CAPACITY 15.2 mL/dL (16-24); ARTERIAL BLOOD GAS O2 CONTENT 14.7 ML/dL (15-23); ARTERIAL BLOOD GAS PH 7.39 (7.35-7.45); ARTERIAL BLOOD GAS PO2 67 mm/Hg (80-100); ARTERIAL BLOOD HGB O2 SAT 92.9 % (95.0-98.0); CARBOXYHEMOGLOBIN 2.1 % (0.5-1.5); HHB 3.1 % (0.0-5.0)
[2017-08-18 06:14] LABS: BASO % 0.6 % (0.0-2.0); EOS # 0.4 K/uL (0.0-0.7); EOS % 6.5 % (0.0-4.0); HEMATOCRIT 34.5 % (34.0-47.0); LYMPH # 0.4 K/uL (1.0-4.3); LYMPH % 5.4 % (20.0-40.0); MEAN CELL VOLUME 94.6 fl (81.0-99.0); MEAN CORPUSCULAR HEMOGLOBIN 29.7 pg (27.0-31.0); MEAN CORPUSCULAR HGB CONC 31.4 g/dL (33.0-37.0); MEAN PLATELET VOLUME 9.8 fl (7.2-11.7); MONO % 14.9 % (0.0-10.0); NEUT # 4.9 K/uL (1.8-7.0); NEUT % 72.6 % (50.0-75.0); NRBC % 0.5 % (0.0-0.0); RED CELL DISTRIBUTION WIDTH 20.7 % (11.5-14.5); WHITE BLOOD COUNT 6.7 K/uL (4.8-10.8)
[2017-08-18 07:40] LABS: CALCIUM 8.5 mg/dL (8.4-10.2); POTASSIUM 3.4 MMOL/L (3.6-5.0)
[2017-08-18] MEDS: Albuterol-Ipratrop 3 mg / 0.5 (3 ml) UD INH SCH ×4 (07:49→19:07)
[2017-08-18] MEDS ORDERED: Sodium Chloride 0.9% 1,000 ML IV SCH ×2 (07:55→23:00)
[2017-08-18] MEDS: Loratadine 5 MG/5 ML ORAL SYRUP PEG SCH (08:46)
[2017-08-18] MEDS: Artificial Tears Opht Soln OU SCH ×4 (08:46→21:13)
[2017-08-18] MEDS: Pantoprazole 40 mg Susp UD PO SCH (08:46)
[2017-08-18] MEDS: Cefepime 1 GM in Sodium Chloride 0.9% 100 ML IVPB SCH (08:47)
[2017-08-18] MEDS: Santyl Collagenase OINTMENT TOP SCH (08:48)
--- NOTE | 2017-08-18 09:50 | CP.PCM.PN ---
Subjective - Date & Time of Evaluation Date of Evaluation: 08/18/17 Time of Evaluation: 09:00 - Subjective Subjective: NOT ANSWERING QUESTIONS Objective - Vital Signs/Intake and Output Vital Signs (last 24 hours): Temp Pulse Resp BP Pulse Ox 100.5 F H 115 H 28 H 124/54 L 100 08/18/17 08:00 08/18/17 08:00 08/18/17 08:00 08/18/17 08:00 08/18/17 08:00 Intake and Output: 08/18/17 08/18/17 06:59 18:59 Intake Total 2808 Balance 2808 - Medications Medications: Current Medications Acetaminophen (Tylenol 325mg Tab) 650 mg PO Q6H PRN PRN Reason: Fever >100.4 F Albuterol/Ipratropium (Duoneb 3 Mg/0.5 Mg (3 Ml) Ud) 3 ml INH RQID [facility] Last Admin: 08/18/17 07:49 Dose: 3 ml Artificial Tears (Artificial Tears) 1 drop OU QID [facility] Last Admin: 08/18/17 08:46 Dose: 1 drop Aspirin (Aspirin Chewable) 81 mg PEG DAILY [facility] Last Admin: 08/18/17 08:47 Dose: 81 mg Collagenase (Santyl) 1 applic TOP DAILY [facility] Last Admin: 08/18/17 08:48 Dose: 1 applic Heparin Sodium (Porcine) (Heparin) 5,000 units SC Q8 [facility] PRN Reason: Protocol Last Admin: 08/18/17 08:47 Dose: 5,000 units Cefepime HCl 1 gm/ Sodium (Chloride) 100 mls @ 100 mls/hr IVPB DAILY [facility] PRN Reason: Protocol Last Admin: 08/18/17 08:47 Dose: 100 mls/hr Vancomycin HCl 1 gm/ Sodium (Chloride) 250 mls @ 125 mls/hr IVPB MWF [facility] PRN Reason: Protocol Sodium Chloride (Sodium Chloride 0.9%) 1,000 mls @ 75 mls/hr IV .[id number] [facility] Stop: 08/18/17 11:01 Last Admin: 08/18/17 08:56 Dose: 75 mls/hr Latanoprost (Xalatan Opht) 1 drop OU DAILY [facility] Last Admin: 08/17/17 08:57 Dose: 1 drop Loratadine (Claritin Oral Soln 1mg/Ml) 10 mg PEG DAILY [facility] Last Admin: 08/18/17 08:46 Dose: 10 mg Pantoprazole Sodium (Protonix Susp) 40 mg PO DAILY [facility] Last Admin: 08/18/17 08:46 Dose: 40 mg - Labs Labs: 08/18/17 04:40 08/18/17 04:40 PT 12.0 Seconds (9.8-13.1) 08/17/17 03:50 INR 1.1 (0.9-1.2) 08/17/17 03:50 APTT 32.0 Seconds (25.6-37.1) 08/17/17 03:50 - Respiratory Exam Respiratory Exam: Rales - Cardiovascular Exam Cardiovascular Exam: Tachycardia, REGULAR RHYTHM, +S1, +S2 - Extremities Exam Extremities Exam: Normal Inspection - Additional Findings Additional findings: ELECTRONIC TEST TECHNICIAN SINUS TACHYCARDIA, R 111, WITH CLEAR P WAVES SEEN 12 LEAD EKG NOT IN EMR SECOND TROPONIN WAS SENT ACCORDING TO THE NURSE BUT NOT RUN BY THE LAB DUE TO LABELING ISSUE BP 124/54 THIS AM Assessment and Plan - Assessment and Plan (Free Text) Assessment: PNEUMONIA WITH SEPSIS CKD ON HD SINUS TACHYCARDIA ONE MILDLY ELEVATED TROPONIN Plan: EKG AND AM TROPONIN PENDING NOREPINEPHRINE BEING WEANED OFF IV FLUIDS DECREASED CONTINUE ASPIRIN, HEPARIN AND IV ANTIBIOTICS FOR HD TODAY.
--- NOTE | 2017-08-18 09:58 | CP.CCUPN ---
CCU Subjective - Physician Review Subjective (Free Text): 08/18/17 The patient was Seen and examined by me at the bedside, Medical records reviewed and Management issues were discussed and formulated with the house staff. Mrs Larsen is 82 Years old Female with PMHx of HTN, Anemia, Arthritis, CHF, Dementia, Peripheral Edema and End Stage Renal Disease on HD Who sent to ED from [facility] to the Emergency department for evaluation of fever/cough As Per EMS, patient has been coughing and has been febrile for the past 2 days, she was started on Levoquin but her fever still persists so she was transferred to the ED. In the ER she had temp of 101.2F, tachycardia and hypotensive with BP 78/47 Patient admitted to the ICU with septic shoch, currently on Levophed via femoral central line. This morning she is sleepy, not following commands Pt on Levophed at 6 mcg/min Afebrile, NSR on the monitor Last 24H I&O 6900/5 Clinically and hemodynamically improved but still Vasopressor dependent Bilateral venodyne boots intact. This morning labs revealed no Leucocytosis, K of 3.4, Bun/Cr 84/3.9 Scheduled for HD today IV Fluids was discontinued Tolerating PEG Tube feeding CCU Objective - Vital Signs / Intake & Output Vital Signs (Last 4 hours): Vital Signs Temp Pulse Resp BP Pulse Ox 08/18/17 08:00 100.5 F H 115 H 28 H 124/54 L 100 08/18/17 06:00 102 H 15 119/56 L 100 Intake and Output (Last 8hrs): Intake & Output 08/17/17 08/18/17 08/18/17 22:59 06:59 14:59 Intake Total 2848 1810 Output Total 5 Balance 2843 1810 Intake: IV 2150 1200 Intake, Piggyback 88 140 Tube Feeding 160 320 Free Water Flush 450 150 Output: Urine 5 Urethral (Lee) 5 Other: # Bowel Movements 1 1 - Physical Exam Head: Positive for: Normocephalic Pupils: Positive for: PERRL Extroacular Muscles: Positive for: EOMI Conjunctiva: Positive for: Normal. Negative for: Icteric Mouth: Negative for: Moist Mucous Membranes Neck: Positive for: Normal Range of Motion, Trachea Midline Respiratory/Chest: Positive for: Rales, Rhonchi, Tachypneic. Negative for: Clear to Auscultation, Respiratory Distress, Wheezes Cardiovascular: Positive for: Normal S1, S2, Irregular Rhythm, Tachycardic. Negative for: Murmurs, Rub Upper Extremity: Positive for: Edema, Normal ROM, NORMAL PULSES, Capillary Refill < 2s. Negative for: Cyanosis Lower Extremity: Positive for: Edema (minimal), Cyanosis, Capillary Refill < 2 s. Negative for: CALF TENDERNESS, NORMAL PULSES Skin: Positive for: Warm, Dry. Negative for: Rashes - Medications Active Medications: Active Medications Generic Name Dose Route Start Last Admin Trade Name Freq PRN Reason Stop Dose Admin Acetaminophen 650 mg 08/17/17 05:53 Tylenol 325mg Tab PO Q6H PRN Fever >100.4 F Albuterol/Ipratropium 3 ml 08/17/17 08:00 08/18/17 07:49 Duoneb 3 Mg/0.5 Mg (3 Ml) Ud INH 3 ml RQID [facility] Administration Artificial Tears 1 drop 08/17/17 09:00 08/18/17 08:46 Artificial Tears OU 1 drop QID [facility] Administration Aspirin 81 mg 08/17/17 09:00 08/18/17 08:47 Aspirin Chewable PEG 81 mg DAILY [facility] Administration Collagenase 1 applic 08/17/17 11:15 08/18/17 08:48 Santyl TOP 1 applic DAILY [facility] Administration Heparin Sodium (Porcine) 5,000 units 08/17/17 09:00 08/18/17 08:47 Heparin SC 5,000 units Q8 [facility] Administration Protocol Cefepime HCl 1 gm/ Sodium 100 mls @ 100 mls/hr 08/17/17 13:15 08/18/17 08:47 Chloride IVPB 100 mls/hr DAILY [facility] Administration Protocol Vancomycin HCl 1 gm/ Sodium 250 mls @ 125 mls/hr 08/18/17 09:00 Chloride IVPB MWF [facility] Protocol Sodium Chloride 1,000 mls @ 75 mls/hr 08/18/17 07:55 08/18/17 08:56 Sodium Chloride 0.9% IV 08/18/17 11:01 75 mls/hr .[id number] [facility] Administration Latanoprost 1 drop 08/17/17 09:00 08/17/17 08:57 Xalatan Opht OU 1 drop DAILY [facility] Administration Loratadine 10 mg 08/17/17 11:00 08/18/17 08:46 Claritin Oral Soln 1mg/Ml PEG 10 mg DAILY [facility] Administration Pantoprazole Sodium 40 mg 08/17/17 09:00 08/18/17 08:46 Protonix Susp PO 40 mg DAILY [facility] Administration - Patient Studies Lab Studies: Microbiology Studies 08/17/17 05:00 Blood Culture - Preliminary Blood NO GROWTH AFTER 24 HOURS 08/17/17 03:50 Blood Culture - Preliminary Blood NO GROWTH AFTER 24 HOURS Lab Studies 08/18/17 08/18/17 08/18/17 Range/Units 05:47 04:40 04:40 WBC 6.7 (4.8-10.8) K/uL RBC 3.65 L (3.80-5.20) Mil/uL Hgb 10.8 L D (12.0-16.0) g/dL Hct 34.5 (34.0-47.0) % MCV 94.6 D (81.0-99.0) fl MCH 29.7 (27.0-31.0) pg MCHC 31.4 L (33.0-37.0) g/dL RDW 20.7 H (11.5-14.5) % Plt Count 189 (130-400) K/uL MPV 9.8 (7.2-11.7) fl Neut % (Auto) 72.6 (50.0-75.0) % Lymph % (Auto) 5.4 L (20.0-40.0) % [place] % (Auto) 14.9 H (0.0-10.0) % Eos % (Auto) 6.5 H (0.0-4.0) % Baso % (Auto) 0.6 (0.0-2.0) % Neut # 4.9 (1.8-7.0) K/uL Lymph # 0.4 L (1.0-4.3) K/uL [place] # 1.0 H (0.0-0.8) K/uL Eos # 0.4 (0.0-0.7) K/uL Baso # 0.0 (0.0-0.2) K/uL pCO2 32 L (35-45) mm/Hg pO2 67 L (80-100) mm/Hg HCO3 21.1 (21-28) mmol/L ABG pH 7.39 (7.35-7.45) ABG Total CO2 20.4 L (22-28) mmol/L ABG O2 Saturation 96.8 (95-98) % ABG O2 Content 14.7 L (15-23) ML/dL ABG Base Excess -4.8 L (-2.0-3.0) mmol/L ABG Hemoglobin 11.2 L (11.7-17.4) g/dL ABG Carboxyhemoglobin 2.1 H (0.5-1.5) % POC ABG HHb (Measured) 3.1 (0.0-5.0) % ABG Methemoglobin 2.0 (0.0-3.0) % ABG O2 Capacity 15.2 L (16-24) mL/dL Romeo Test Yes A-a O2 Difference 606.0 mm/Hg Hgb O2 Saturation 92.9 L (95.0-98.0) % Vent Mode Nrm FiO2 100.0 % Sodium 137 (132-148) mmol/l Potassium 3.4 L (3.6-5.0) MMOL/L Chloride 106 (98-107) mmol/L Carbon Dioxide 21 L (22-30) mmol/L Anion Gap 13 (10-20) BUN 84 H (7-17) mg/dl Creatinine 3.9 H (0.7-1.2) mg/dl Est GFR ( Amer) 13 Est GFR (Non-Af Amer) 11 Random Glucose 157 H (65-105) mg/dL Calcium 8.5 (8.4-10.2) mg/dL Laboratory Results - last 24 hr 08/18/17 08/18/17 08/18/17 04:40 04:40 05:47 WBC 6.7 RBC 3.65 L Hgb 10.8 L D Hct 34.5 MCV 94.6 D MCH 29.7 MCHC 31.4 L RDW 20.7 H Plt Count 189 MPV 9.8 Neut % (Auto) 72.6 Lymph % (Auto) 5.4 L [place] % (Auto) 14.9 H Eos % (Auto) 6.5 H Baso % (Auto) 0.6 Neut # 4.9 Lymph # 0.4 L [place] # 1.0 H Eos # 0.4 Baso # 0.0 pCO2 32 L pO2 67 L HCO3 21.1 ABG pH 7.39 ABG Total CO2 20.4 L ABG O2 Saturation 96.8 ABG O2 Content 14.7 L ABG Base Excess -4.8 L ABG Hemoglobin 11.2 L ABG Carboxyhemoglobin 2.1 H POC ABG HHb (Measured) 3.1 ABG Methemoglobin 2.0 ABG O2 Capacity 15.2 L Romeo Test Yes A-a O2 Difference 606.0 Hgb O2 Saturation 92.9 L Vent Mode Nrm FiO2 100.0 Sodium 137 Potassium 3.4 L Chloride 106 Carbon Dioxide 21 L Anion Gap 13 BUN 84 H Creatinine 3.9 H Est GFR ( Amer) 13 Est GFR (Non-Af Amer) 11 Random Glucose 157 H Calcium 8.5 EKG/Cardiology Studies: Cardiology / EKG Studies 08/18/17 07:00 EKG [ELECTROCARDIOGRAM] Routine Comment: Mode Of Transportation: PORTABLE Reason For Exam: ELEVATED TROPONIN Isolation: Contact Review of Systems - Review of Systems Systems not reviewed;Unavailable: Unstable Vital Signs Critical Care Progress Note - Extremities/Vascular Does the Patient have a Central Venous Catheter?: Yes Does the Patient need a Central Venous Catheter?: Yes Does the Patient have a Lee Catheter?: Yes Does the Patient need a Lee Catheter?: Yes - Nutrition Nutrition: Nutrition Category Date Time Status NPO Diet [DIET] Diets 08/17/17 Breakfast Active Assessment/Plan (1) Septic shock Current Visit: Yes Status: Acute (2) Acute respiratory failure with hypoxia Current Visit: Yes Status: Acute (3) Elevated troponin Current Visit: Yes Status: Acute (4) HCAP (healthcare-associated pneumonia) Current Visit: Yes Status: Acute (5) ESRD (end stage renal disease) on dialysis Current Visit: No Status: Acute - Assessment and Plan (Free Text) Assessment: Acute respiratory failure secondary to likely aspiration pneumonia Continue with ICU care for hemodynamic and Respiratory monitoring Neuro checks ID/Pulm/Nephrology consult appreciated Continue IV antibiotics with Vancomycin, Cipro and Maxipime Follow up cultures (Blood C/S NTD) Continue levophed for BP support, wean as tolerated Maintain MAP 65-75 Optimize blood pressure, hemodynamic monitoring and maintain end-organ perfusion Volume resuscitations Strict I&O Wean off Oxygen now as tolerated Trop level trending down Glycemic control Aggressive pulmonary toilet, chest PT, suctioning Continue nebulizer treatment Maintain aspiration precautions PEG Tube feeding #. Stress Ulcer prophylaxis with Protonix 40 mg IVP QD. #. DVT prophylaxis with SCD, SQ Heparin #. Code Status: Full code Total critical care time 48 minutes
--- NOTE | 2017-08-18 11:29 | CP.PCM.PN ---
Subjective - Date & Time of Evaluation Date of Evaluation: 08/18/17 Time of Evaluation: 11:29 - Subjective Subjective: pt is seen and examined, follow up consult is dictated #[id number] d/c ivf for hd today Objective - Vital Signs/Intake and Output Vital Signs (last 24 hours): Temp Pulse Resp BP Pulse Ox 100.5 F H 109 H 25 H 106/49 L 100 08/18/17 08:00 08/18/17 10:00 08/18/17 10:00 08/18/17 10:00 08/18/17 10:00 Intake and Output: 08/18/17 08/18/17 06:59 18:59 Intake Total 2808 330 Balance 2808 330 - Medications Medications: Current Medications Acetaminophen (Tylenol 325mg Tab) 650 mg PO Q6H PRN PRN Reason: Fever >100.4 F Albuterol/Ipratropium (Duoneb 3 Mg/0.5 Mg (3 Ml) Ud) 3 ml INH RQID [facility] Last Admin: 08/18/17 07:49 Dose: 3 ml Artificial Tears (Artificial Tears) 1 drop OU QID [facility] Last Admin: 08/18/17 08:46 Dose: 1 drop Aspirin (Aspirin Chewable) 81 mg PEG DAILY [facility] Last Admin: 08/18/17 08:47 Dose: 81 mg Collagenase (Santyl) 1 applic TOP DAILY [facility] Last Admin: 08/18/17 08:48 Dose: 1 applic Heparin Sodium (Porcine) (Heparin) 5,000 units SC Q8 [facility] PRN Reason: Protocol Last Admin: 08/18/17 08:47 Dose: 5,000 units Cefepime HCl 1 gm/ Sodium (Chloride) 100 mls @ 100 mls/hr IVPB DAILY [facility] PRN Reason: Protocol Last Admin: 08/18/17 08:47 Dose: 100 mls/hr Vancomycin HCl 1 gm/ Sodium (Chloride) 250 mls @ 125 mls/hr IVPB MWF [facility] PRN Reason: Protocol Norepinephrine Bitartrate 4 mg (/ Dextrose) 254 mls @ 22.86 mls/hr IV .Q11H7M [facility]; 6 MCG/MIN PRN Reason: Protocol Latanoprost (Xalatan Opht) 1 drop OU DAILY [facility] Last Admin: 08/17/17 08:57 Dose: 1 drop Loratadine (Claritin Oral Soln 1mg/Ml) 10 mg PEG DAILY [facility] Last Admin: 08/18/17 08:46 Dose: 10 mg Pantoprazole Sodium (Protonix Susp) 40 mg PO DAILY [facility] Last Admin: 08/18/17 08:46 Dose: 40 mg - Labs Labs: 08/18/17 04:40 08/18/17 04:40 PT 12.0 Seconds (9.8-13.1) 08/17/17 03:50 INR 1.1 (0.9-1.2) 08/17/17 03:50 APTT 32.0 Seconds (25.6-37.1) 08/17/17 03:50
[2017-08-18] MEDS: Latanoprost 0.005% Opht SOUTION OU SCH (12:28)
--- NOTE | 2017-08-18 12:29 | CP.PCM.PN ---
Subjective - Date & Time of Evaluation Date of Evaluation: 08/18/17 Time of Evaluation: 12:29 - Subjective Subjective: BP IMPROVED STILL LETHARGIC Objective - Vital Signs/Intake and Output Vital Signs (last 24 hours): Temp Pulse Resp BP Pulse Ox 99.9 F H 114 H 30 H 102/54 L 100 08/18/17 12:00 08/18/17 12:00 08/18/17 12:00 08/18/17 12:00 08/18/17 12:00 Intake and Output: 08/18/17 08/18/17 06:59 18:59 Intake Total 2808 330 Balance 2808 330 - Medications Medications: Current Medications Acetaminophen (Tylenol 325mg Tab) 650 mg PO Q6H PRN PRN Reason: Fever >100.4 F Albuterol/Ipratropium (Duoneb 3 Mg/0.5 Mg (3 Ml) Ud) 3 ml INH RQID [facility] Last Admin: 08/18/17 11:30 Dose: 3 ml Artificial Tears (Artificial Tears) 1 drop OU QID [facility] Last Admin: 08/18/17 08:46 Dose: 1 drop Aspirin (Aspirin Chewable) 81 mg PEG DAILY [facility] Last Admin: 08/18/17 08:47 Dose: 81 mg Collagenase (Santyl) 1 applic TOP DAILY [facility] Last Admin: 08/18/17 08:48 Dose: 1 applic Doxercalciferol (Hectorol) 2 mcg IV [facility] Epoetin Tyrell (Procrit) 4,000 unit SC [facility] Heparin Sodium (Porcine) (Heparin) 5,000 units SC Q8 [facility] PRN Reason: Protocol Last Admin: 08/18/17 08:47 Dose: 5,000 units Cefepime HCl 1 gm/ Sodium (Chloride) 100 mls @ 100 mls/hr IVPB DAILY [facility] PRN Reason: Protocol Last Admin: 08/18/17 08:47 Dose: 100 mls/hr Vancomycin HCl 1 gm/ Sodium (Chloride) 250 mls @ 125 mls/hr IVPB [facility] PRN Reason: Protocol Norepinephrine Bitartrate 4 mg (/ Dextrose) 254 mls @ 22.86 mls/hr IV .Q11H7M [facility]; 6 MCG/MIN PRN Reason: Protocol Last Admin: 08/18/17 11:54 Dose: 6 mcg/min, 22.86 mls/hr Latanoprost (Xalatan Opht) 1 drop OU DAILY [facility] Last Admin: 08/17/17 08:57 Dose: 1 drop Loratadine (Claritin Oral Soln 1mg/Ml) 10 mg PEG DAILY [facility] Last Admin: 08/18/17 08:46 Dose: 10 mg Pantoprazole Sodium (Protonix Susp) 40 mg PO DAILY [facility] Last Admin: 08/18/17 08:46 Dose: 40 mg - Labs Labs: 08/18/17 04:40 08/18/17 04:40 PT 12.0 Seconds (9.8-13.1) 08/17/17 03:50 INR 1.1 (0.9-1.2) 08/17/17 03:50 APTT 32.0 Seconds (25.6-37.1) 08/17/17 03:50 - Constitutional Appears: Chronically Ill - Head Exam Head Exam: ATRAUMATIC, NORMAL INSPECTION, NORMOCEPHALIC - Eye Exam Eye Exam: Normal appearance, PERRL Pupil Exam: PERRL - ENT Exam ENT Exam: Mucous Membranes Moist, Normal Exam - Neck Exam Neck Exam: Full ROM, Normal Inspection. absent: Lymphadenopathy - Respiratory Exam Respiratory Exam: Decreased Breath Sounds, Rales, NORMAL BREATHING PATTERN - Cardiovascular Exam Cardiovascular Exam: Tachycardia, +S1, +S2. absent: Murmur - GI/Abdominal Exam GI & Abdominal Exam: Soft, Normal Bowel Sounds. absent: Tenderness - Rectal Exam Rectal Exam: NORMAL INSPECTION - Extremities Exam Extremities Exam: Full ROM, Normal Capillary Refill, Normal Inspection. absent : Joint Swelling, Pedal Edema - Back Exam Back Exam: NORMAL INSPECTION - Skin Skin Exam: Dry, Intact, Normal Color, Warm Assessment and Plan - Assessment and Plan (Free Text) Assessment: SEPSIS PNEUMONIA--PROBABLY ASPIRATION TACHYCARDIA ESRD ELEVATED TROPONIN DUE TO ESRD AND DEHYDRATION Plan: CONTINUE PRESENT RX
--- NOTE | 2017-08-18 13:25 | CP.PCM.CON ---
History of Present Illness - History of Present Illness History of Present Illness: 82 y/o female resident of [facility] with MHx significant for dementia, ESRD on T /Th/Sat HD, and ?diastolic dysfunction who is brought in for fever/cough. Apparently, per EMS she was started on LVQ yesterday but is persistently febrile and overall is condition deteriorating. Due to dementia, patient is unable to provide any HPI. Rx for pneumonia in progress IV antibiotics started ROS: unable to obtain MHx: ESRD on T/Th/Sat HD, ?diastolic dysfunction, dementia SHx: PEG tube, RIJ dialysis cath Allergies: NKDA Medications: Per med rec Family Hx: Unable to obtain Social Hx: Lives in [facility], unable to obtain other infor Surrogate Dec Mkr: cannot provide at this time Review of Systems - Review of Systems Systems not reviewed;Unavailable: Altered Mental Status - Constitutional Constitutional: As Per HPI - EENT Eyes: As Per HPI Ears: As Per HPI Nose/Mouth/Throat: As Per HPI - Respiratory Respiratory: As Per HPI - Gastrointestinal Gastrointestinal: absent: As Per HPI, Abdominal Pain, Belching, Bloating, Change in Bowel Habits, Change in Stool Character, Coffee Ground Emesis, Constipation, Cramping, Diarrhea, Dyspepsia, Dysphagia, Early Satiety, Excessive Flatus, Fecal Incontinence, Heartburn, Hematemesis, Hematochezia, Loose Stools, Melena, Nausea, Odynophagia, Temesmus, Vomiting, Other - Genitourinary Genitourinary: absent: As Per HPI, Change in Urinary Stream, Difficulty Urinating, Dysuria, Flank Pain, Hematuria, Pyuria, Nocturia, Urinary Incontinence, Urinary Frequency, Urinary Hesitance, Urinary Urgency, Voiding Freq/Small Amts, Freq UTI, Hx Renal/Bladder Calculi, Hx /Renal Surgery, Bladder Distension, Other - Reproductive: Female Reproductive:Female: absent: As Per HPI, Amenorrhea, Amenorrhea/ Control, Currently Menstual, Cycle <21 Days, Cycle >35 Days, Cycle Variable, Menses 1-7 Days, Menses >/= 8 Days, Menses Variable, Cycle > 4 Weeks Between, No Menses for 6 Months, Heavy Menses, Light Menses, Normal Menses, Spotting Between Cycles , S/P Hysterectomy, Menopausal, Post Menopausal, Premenarche, Abnormal Vaginal Bleeding, Dysmenorrhea, Dyspareunia, Genital Lesions, Genital Pruritis, Pelvic Pain, Prolapse Symptoms, Sexual Dysfunction, Vaginal Discharge, Vaginal Dryness , Vaginal Odor, Vaginal Pruritis, Other - Menstruation Menstruation: absent: As Per HPI, Amenorrhea, Amenorrhea/ Control, Currently Menstual, Cycle <21 Days, Cycle >35 Days, Cycle Variable, Menses 1-7 Days, Menses >/= 8 Days, Menses Variable, Cycle > 4 Weeks Between, No Menses for 6 Months, Heavy Menses, Light Menses, Normal Menses, Spotting Between Cycles , S/P Hysterectomy, Menopausal, Post Menopausal, Premenarche, Abnormal Vaginal Bleeding, Dysmenorrhea, Other - Musculoskeletal Musculoskeletal: absent: As Per HPI, Abnormal Gait, Arthralgias, Atrophy, Back Pain, Deformity, Joint Swelling, Limited Range of Motion, Loss of Height, Muscle Cramps, Muscle Weakness, Myalgias, Neck Pain, Numbness, Radiating Pain into Limb, Stiffness, Tingling, Other - Integumentary Integumentary: absent: As Per HPI, Acne, Alopecia, Bleeding Lesions, Change in Hair, Change in Nails, Change in Pigmentation, Changing Lesions, Dry Skin, Erythema, Furuncle, Hirsutism, Lesions, New Lesions, Non-Healing Lesions, Photosensitivity, Pruritus, Rash, Skin Pain, Skin Ulcer, Sores, Striae, Swelling , Unusual Bruising, Wounds, Jaundice, Other - Neurological Neurological: As Per HPI - Psychiatric Psychiatric: absent: As Per HPI, Abnormal Sleep Pattern, Anhedonia, Anxiety, Auditory Hallucinations, Behavioral Changes, Change in Appetite, Change in Libido, Confusion, Depression, Difficulty Concentrating, Hallucinations, Homicidal Ideation, Hopelessness, Irritability, Memory Loss, Mood Swings, Panic Attacks, Paranoia, Suicidal Ideation, Visual Hallucinations, Tactile Hallucinations, Other - Endocrine Endocrine: absent: As Per HPI, Change in Body Appearance, Change in Libido, Cold Intolorance, Deepening of Voice, Excessive Sweating, Fatigue, Flushing, Heat Intolorance, Increase in Ring/Shoe/Hat Size, Palpitations, Polydipsia, Polyphagia, Polyuria, Other Past Patient History - Past Medical History & Family History Past Medical History?: Yes - Past Social History Smoking Status: Never Smoked - CARDIAC Hx Congestive Heart Failure: Yes Hx Hypertension: Yes Hx Peripheral Edema: Yes - PULMONARY Hx Respiratory Disorders: No - NEUROLOGICAL Hx Dementia: Yes - HEENT Hx HEENT Problems: Yes - RENAL Hx Chronic Kidney Disease: Yes Hx Dialysis: Yes Type of Dialysis Access: right SVC permcath - ENDOCRINE/METABOLIC Hx Endocrine Disorders: Yes (enlarged thyroid) Hx Diabetes Mellitus Type 2: Yes - HEMATOLOGICAL/ONCOLOGICAL Hx AIDS: No Hx Human Immunodeficiency Virus (HIV): No - INTEGUMENTARY Hx Dermatological Problems: Yes (generalized pruritus) - MUSCULOSKELETAL/RHEUMATOLOGICAL Hx Falls: No - GASTROINTESTINAL Hx Gastrointestinal Disorders: No Other/Comment: PEG - GENITOURINARY/GYNECOLOGICAL Hx Genitourinary Disorders: No - PSYCHIATRIC Hx Substance Use: No - SURGICAL HISTORY Hx Surgeries: Yes Other/Comment: 1992 THYROID SX - ANESTHESIA Hx Anesthesia: Yes Hx Anesthesia Reactions: No Hx Malignant Hyperthermia: No Meds Allergies/Adverse Reactions: Allergies Allergy/AdvReac Type Severity Reaction Status Date / Time No Known Allergies Allergy Verified 03/04/17 01:13 - Medications Medications: Current Medications Acetaminophen (Tylenol 325mg Tab) 650 mg PO Q6H PRN PRN Reason: Fever >100.4 F Albuterol/Ipratropium (Duoneb 3 Mg/0.5 Mg (3 Ml) Ud) 3 ml INH RQID [facility] Last Admin: 08/18/17 11:30 Dose: 3 ml Artificial Tears (Artificial Tears) 1 drop OU QID [facility] Last Admin: 08/18/17 12:28 Dose: 1 drop Aspirin (Aspirin Chewable) 81 mg PEG DAILY [facility] Last Admin: 08/18/17 08:47 Dose: 81 mg Collagenase (Santyl) 1 applic TOP DAILY [facility] Last Admin: 08/18/17 08:48 Dose: 1 applic Doxercalciferol (Hectorol) 2 mcg IV MWF [facility] Epoetin Tyrell (Procrit) 4,000 unit SC MWF [facility] Heparin Sodium (Porcine) (Heparin) 5,000 units SC Q8 [facility] PRN Reason: Protocol Last Admin: 08/18/17 08:47 Dose: 5,000 units Cefepime HCl 1 gm/ Sodium (Chloride) 100 mls @ 100 mls/hr IVPB DAILY [facility] PRN Reason: Protocol Last Admin: 08/18/17 08:47 Dose: 100 mls/hr Vancomycin HCl 1 gm/ Sodium (Chloride) 250 mls @ 125 mls/hr IVPB [facility] PRN Reason: Protocol Norepinephrine Bitartrate 4 mg (/ Dextrose) 254 mls @ 22.86 mls/hr IV .Q11H7M [facility]; 6 MCG/MIN PRN Reason: Protocol Last Admin: 08/18/17 11:54 Dose: 6 mcg/min, 22.86 mls/hr Latanoprost (Xalatan Opht) 1 drop OU DAILY [facility] Last Admin: 08/18/17 12:28 Dose: 1 drop Loratadine (Claritin Oral Soln 1mg/Ml) 10 mg PEG DAILY [facility] Last Admin: 08/18/17 08:46 Dose: 10 mg Pantoprazole Sodium (Protonix Susp) 40 mg PO DAILY [facility] Last Admin: 08/18/17 08:46 Dose: 40 mg Physical Exam - Constitutional Appears: Confused, Cachectic, Chronically Ill - Head Exam Head Exam: ATRAUMATIC, NORMOCEPHALIC - Eye Exam Eye Exam: PERRL. absent: Scleral icterus Pupil Exam: absent: NORMAL ACCOMODATION - ENT Exam ENT Exam: Mucous Membranes Dry, Normal External Ear Exam - Neck Exam Neck exam: Negative for: Lymphadenopathy - Respiratory Exam Respiratory Exam: Decreased Breath Sounds, Prolonged Expiratory Phase, Rales, Rhonchi - Cardiovascular Exam Cardiovascular Exam: REGULAR RHYTHM, +S1, +S2 - GI/Abdominal Exam GI & Abdominal Exam: Diminished Bowel Sounds, Soft. absent: Tenderness - Rectal Exam Rectal Exam: Deferred - Exam Exam: NORMAL INSPECTION - Extremities Exam Extremities exam: Positive for: pedal pulses present. Negative for: calf tenderness, pedal edema, tenderness - Back Exam Back exam: absent: CVA tenderness (L), CVA tenderness (R) - Neurological Exam Neurological exam: Alert, Altered, CN II-XII Intact - Psychiatric Exam Psychiatric exam: Depressed - Skin Skin Exam: Dry Results - Vital Signs Recent Vital Signs: Last Vital Signs Temp 99.9 F H 08/18/17 12:00 Pulse 114 H 08/18/17 12:00 Resp 30 H 08/18/17 12:00 BP 102/54 L 08/18/17 12:00 Pulse Ox 100 08/18/17 12:00 - Labs Result Diagrams: 08/18/17 04:40 08/18/17 04:40 Labs: Laboratory Results - last 24 hr 08/18/17 08/18/17 08/18/17 04:40 04:40 05:47 WBC 6.7 RBC 3.65 L Hgb 10.8 L D Hct 34.5 MCV 94.6 D MCH 29.7 MCHC 31.4 L RDW 20.7 H Plt Count 189 MPV 9.8 Neut % (Auto) 72.6 Lymph % (Auto) 5.4 L [place] % (Auto) 14.9 H Eos % (Auto) 6.5 H Baso % (Auto) 0.6 Neut # 4.9 Lymph # 0.4 L [place] # 1.0 H Eos # 0.4 Baso # 0.0 pCO2 32 L pO2 67 L HCO3 21.1 ABG pH 7.39 ABG Total CO2 20.4 L ABG O2 Saturation 96.8 ABG O2 Content 14.7 L ABG Base Excess -4.8 L ABG Hemoglobin 11.2 L ABG Carboxyhemoglobin 2.1 H POC ABG HHb (Measured) 3.1 ABG Methemoglobin 2.0 ABG O2 Capacity 15.2 L Romeo Test Yes A-a O2 Difference 606.0 Hgb O2 Saturation 92.9 L Vent Mode Nrm FiO2 100.0 Sodium 137 Potassium 3.4 L Chloride 106 Carbon Dioxide 21 L Anion Gap 13 BUN 84 H Creatinine 3.9 H Est GFR ( Amer) 13 Est GFR (Non-Af Amer) 11 Random Glucose 157 H Calcium 8.5 Troponin I 08/18/17 09:56 WBC RBC Hgb Hct MCV MCH MCHC RDW Plt Count MPV Neut % (Auto) Lymph % (Auto) [place] % (Auto) Eos % (Auto) Baso % (Auto) Neut # Lymph # [place] # Eos # Baso # pCO2 pO2 HCO3 ABG pH ABG Total CO2 ABG O2 Saturation ABG O2 Content ABG Base Excess ABG Hemoglobin ABG Carboxyhemoglobin POC ABG HHb (Measured) ABG Methemoglobin ABG O2 Capacity Romeo Test A-a O2 Difference Hgb O2 Saturation Vent Mode FiO2 Sodium Potassium Chloride Carbon Dioxide Anion Gap BUN Creatinine Est GFR ( Amer) Est GFR (Non-Af Amer) Random Glucose Calcium Troponin I 0.6470 H* Assessment & Plan (1) VASILIY (acute kidney injury) Status: Acute (2) DVT prophylaxis Status: Acute (3) Fever Status: Acute (4) HCAP (healthcare-associated pneumonia) Status: Acute (5) Pneumonia Status: Acute (6) Sepsis Status: Acute (7) Severe sepsis Status: Acute (8) VASILIY (acute kidney injury) Status: Acute - Assessment and Plan (Free Text) Assessment: await cultures of blood urine sputuim iv antibiotics started prognosis poor
--- NOTE | 2017-08-18 15:50 | CARD ---
APPROVED REPORT EKG Measurement Heart [id number] <Conclusion> Sinus tachycardia with occasional premature ventricular complexes Left anterior fascicular block Left ventricular hypertrophy with repolarization abnormality Abnormal ECG
--- NOTE | 2017-08-18 15:57 | CARD ---
APPROVED REPORT EKG Measurement Heart [id number] <Conclusion> Accelerated Junctional rhythm with occasional premature ventricular complexes Left anterior fascicular block Left ventricular hypertrophy with repolarization abnormality Prolonged QT Abnormal ECG
--- NOTE | 2017-08-18 15:59 | CARD ---
APPROVED REPORT EKG Measurement Heart [id number] <Conclusion> Accelerated Junctional rhythm with occasional premature ventricular complexes Left anterior fascicular block Left ventricular hypertrophy with repolarization abnormality Nonspecific ST abnormality Abnormal ECG
[2017-08-18] MEDS ORDERED: Acetaminophen 650mg/20.3ml solution UD PO PRN (17:48)
[2017-08-18] MEDS ORDERED: Epoetin Alfa 4000 UNIT/ML Inj SC SCH (18:03)
[2017-08-18] MEDS ORDERED: Doxercalciferol 4 mcg/2 ml Inj IV SCH (18:04)
[2017-08-18 21:45] LABS: ALB/GLOB RATIO 0.8 (1.0-2.1); BILIRUBIN,TOTAL 0.3 mg/dl (0.2-1.3); CALCIUM 8.5 mg/dL (8.4-10.2); PHOSPHOROUS 2.3 mg/dl (2.5-4.5); POTASSIUM 3.6 MMOL/L (3.6-5.0); TOTAL PROTEIN 6.2 G/DL (6.3-8.2)
--- NOTE | 2017-08-18 22:22 | PN ---
DATE: 08/18/2017 FOLLOWUP RENAL CONSULTATION LOCATION: Room 433, bed 1. REQUESTED BY: Elliot Blair M.D. REASON FOR FOLLOWUP: End-stage renal disease, continuation of the hemodialysis, and for further evaluation. SUBJECTIVE: Mrs. Suzie Bellamy is an 82-year-old elderly female with a past medical history significant for long-standing hypertension, rheumatoid arthritis, thrombotic thrombocytopenic purpura, end-stage renal disease, congestive heart failure, dementia, who was initially admitted to [facility] in January 2017 with altered mental status, thrombocytopenia, and found to have idiopathic thrombocytopenic purpura versus thrombotic thrombocytopenic purpura and status post plasmapheresis x3 and bedridden for the last 6 months. [facility] and fever, and the patient is being treated for possible aspiration pneumonia. The patient opens eyes to verbal stimuli this morning and not able to communicate and not in any acute distress. The patient is still on low dose of pressors. The patient was off IV fluids this morning. PHYSICAL EXAMINATION GENERAL: Mrs. Suzie Bellamy is an 82-year-old elderly female, moderately built, moderately nourished, not in any distress. VITAL SIGNS: As follows; blood pressure this morning 102/54, pulse 114, respirations 13, temperature 99.9, saturation 100%. Height 5 feet 1 inch, weight is 150 pounds. HEENT: Pupils are normal and reactive to light and accommodation. Conjunctivae are pink. Sclerae are anicteric. Tongue is moist. Trachea is midline. LUNGS: Symmetric on both sides. Bilateral breath sounds present. Occasional basal crackles present. CARDIOVASCULAR SYSTEM: [place] at the fifth intercostal space, midclavicular line. S1 and S2 audible. No murmur. No gallop. ABDOMEN: Normal in appearance, status post PEG tube placement. Abdomen is soft, tympanic. No guarding. No hepatosplenomegaly. EXTREMITIES: No cyanosis. No clubbing. No edema. CENTRAL NERVOUS SYSTEM: The patient is arousable, not following commands. Sensory system is grossly within normal limits. Motor system: Moving all extremities, but the patient is bedridden for the last 6 months. MEDICATIONS: Current medications include as follows; Artificial Tears, aspirin 81 mg daily, cefepime 1 g daily, loratadine 10 mg by PEG daily, DuoNeb inhaler four times a day, Hectorol 2 mcg 3 times a week, subcu heparin 5000 q. 8 hours, Levophed 6 mcg per minute, Epogen 4000 subcu 3 times a week, Protonix 40 mg p.o. daily, Tylenol, vancomycin 1 g 3 times a week, and Xalatan eye drops. LABORATORY DATA: Includes as follows; WBC 6.7, hemoglobin 10.8, hematocrit is 34.5, platelets 189. ABG: PH 7.39, pCO2 32, pO2 67, bicarb 21, saturation 96.8%, nonrebreathing mask FiO2 100%. Sodium 137, potassium 3.4, chloride 106, CO2 21, BUN 84, creatinine 3.9, glucose is 157, calcium 8.5, troponin 0.84 and 0.647. Chest x-ray as of 08/17/2017; impression: CHF is favored over acute multifocal pneumonia, though the latter is not excluded. ASSESSMENT: In summary, Mrs. Suzie Bellamy is an 82-year-old elderly female with a history of hypertension, rheumatoid arthritis, thrombotic thrombocytopenic purpura status post Humira, end-stage renal disease on hemodialysis 3 times a week, dementia, bedridden for the last 6 months, [facility] with [facility]ness of breath and fever, being treated for mild aspiration pneumonia. 1. End-stage renal disease, continue hemodialysis 3 times a week Monday, Monday and Monday. 2. Hypertension, blood pressure is stable now, on low dose of Levophed. 3. Dementia. 4. Status post thrombotic thrombocytopenic purpura. PLAN: Continue IV antibiotics as per the ICU recommendations. The patient is scheduled for hemodialysis today. We will continue Epogen and Hectorol. Discontinue IV fluids also. Thank you for allowing me to participate in your patient's care. Overall prognosis is guarded. Eddie Augustine MD
[2017-08-18 23:08] VITALS: RESP 34
[2017-08-18] MEDS ORDERED: Sodium Bicarbonate 7.5% (0.9 MEQ/ML) 50ML INJ IV STA (23:27)
--- NOTE | 2017-08-18 23:58 | PCM.RRT ---
<Kristi Chan - Last Filed: 08/18/17 23:58> RESIDENT CAREGIVER Nurse Assessment - Situation RESIDENT CAREGIVER Responder Arrival Time: 23:34 - Ventilator Settings Ventilator Respiratory Rate Settin Ventilator Tidal Volume Settin I.Reason for RESIDENT CAREGIVER - A) Acute Change in Patient: (Select all that apply): Acute change in SBP below, Acute change in respiratory rate less than 8 or greater than 28 - Neurological Status (Select all that apply): absent: Alert, Responsive, Verbal - Respiratory Oxygen Delivery Method: Face Mask @%, Intubated (face mask, then patient was intubated) - Constitutional Appears: Cachectic, Chronically Ill - Head Head Exam: ATRAUMATIC, NORMOCEPHALIC - Respiratory Exam Respiratory Exam: Respiratory Distress - Cardiovascular Exam Cardiovascular Exam: absent: REGULAR RHYTHM, +S1, +S2 Additional comments: pulseless electrical activity - Neurological Exam Neurological Exam: absent: Alert, Awake - Extremities Exam Extremities Exam: absent: Joint Swelling, Pedal Edema Plan - Assessment of Findings&Treatment Plan Peter Polanco called for pulseless electrical activity on 82 yr old F with PMHx including ESRD and dementia admitted for sepsis likely secondary to aspiration pneumonia. Patient us unresponsive with pulseless electrical activity. After several rounds of continuous CPR over span of 17 minutes (5 epinehrine and 2 bicarb injections given) and intubation, spontaneous return of circulation occurred at 11:51pm with BP 165/97, HR 125. Procedures Attestation:: I certify that I have explained the specified Operation(s) or Procedure(s), risks, benefits and reasonable alternatives to the Patient and/or other person responsible. The opportunity was given to ask questions and all questions answered - Intubation Sedative: None (patient not responsive) Laryngoscope: Conor ET Tube Size: 7.0 ET Tube Uncuffed: Yes ET Tube Placement Confirmation: Visualized Passing Through Cords, Breath Sounds Equal Bilaterally, Confirmation w/Capnometry Procedure Immediate Complications: Difficult Intubation <Bola Knutson - Last Filed: 08/19/17 01:14> Attending/Attestation - Attestation I have personally seen and examined this patient.: Yes I have fully participated in the care of the patient.: Yes I have reviewed all pertinent clinical information, including history, physical exam and plan: Yes Notes (Text): 08/19/17 01:00 PETER Polanco was called after patient went into respiratory arrest in PEA. ACLS protocol instituted and chest compressions started along with positive pressure ventilation bag valve mask. Epinephrine given according to protocol and Sodium bicarbonate administered because patient was known to be in metabolic acidosis. Patient was intubated by this Hospitalist. The patient regained pulse after several Epinephrine given. He was then placed on the mechanical ventilator with settings TV500, AC 14 and FiO2 of 100%. Post intubation CXR and ABG were ordered. Bola Knutson MD
[2017-08-19] MEDS ORDERED: Sodium Bicarbonate 7.5% (0.9 MEQ/ML) 50ML INJ IV STA (00:15)
[2017-08-19 00:22] LABS: ABG ALLEN TEST YES; ABG MECHANICAL RATE 14; ARTERIAL BLOOD GAS HCO3 9.7 mmol/L (21-28); ARTERIAL BLOOD GAS MODE A/C; ARTERIAL BLOOD GAS O2 CAPACITY 17.7 mL/dL (16-24); ARTERIAL BLOOD GAS O2 CONTENT 10.1 ML/dL (15-23); ARTERIAL BLOOD GAS PH 7.01 (7.35-7.45); ARTERIAL BLOOD GAS PO2 36 mm/Hg (80-100); ARTERIAL BLOOD HGB O2 SAT 55.2 % (95.0-98.0); ATERIAL BLOOD GAS PEEP 5; CARBOXYHEMOGLOBIN 1.7 % (0.5-1.5); HHB 41.4 % (0.0-5.0); METHEMOGLOBIN 1.7 % (0.0-3.0)
[2017-08-19] MEDS ORDERED: EPINEPHrine- 1 MG in Sodium Chloride 0.9% 250 ML IVPB ONE (03:02)
[2017-08-19 03:25] VITALS: BP 86/52; PULSE 115
--- NOTE | 2017-08-19 04:06 | CP.PCM.PN ---
Subjective - Date & Time of Evaluation Date of Evaluation: 08/19/17 Time of Evaluation: 04:06 - Subjective Subjective: CODE BLUE Note Code was called after this patient became severely bradycardic and found to be in cardiac arrest in PEA on the mechanical ventilator. ACLS protocol was immediately instituted with chest compressions and Epinephrine according to the protocol. The patient was given Sodium Bicarbonate because of Metabolic Acidosis on her most recent ABG . Positive pressure ventilation was administered by bag valve ET Tube. The cardiac rhythm went from a narrow complex to a wide complex QRS PEA to Asystole and back to agonal PEA. I discussed with the family the Futility to continue the Code Efforts, and inform them that the code will be discontinued. The agreed and the efforts were discontinued. The Patient was pronounced at 03:57. PMD Dr Blair was informed The Certificate was written. CASE ID: # [id number] Cause of entered: 1. Septic Shock 2. Aspiration Pneumonia Bola Knutson MD Objective - Vital Signs/Intake and Output Vital Signs (last 24 hours): Temp Pulse Resp BP Pulse Ox 98.5 F 115 H 34 H 86/52 L 100 08/18/17 19:36 08/19/17 03:24 08/19/17 03:24 08/19/17 03:24 08/19/17 03:24 Intake and Output: 08/18/17 08/19/17 18:59 06:59 Intake Total 1313 330 Balance 1313 330 - Medications Medications: Current Medications Acetaminophen (Tylenol 325mg Tab) 650 mg PO Q6H PRN PRN Reason: Fever >100.4 F Acetaminophen (Tylenol 650mg/20.3ml Solution Ud) 650 mg PO Q4 PRN PRN Reason: Temperature Last Admin: 08/18/17 18:36 Dose: 650 mg Albuterol/Ipratropium (Duoneb 3 Mg/0.5 Mg (3 Ml) Ud) 3 ml INH RQID [facility] Last Admin: 08/18/17 19:07 Dose: Not Given Artificial Tears (Artificial Tears) 1 drop OU QID [facility] Last Admin: 08/18/17 21:13 Dose: 1 drop Aspirin (Aspirin Chewable) 81 mg PEG DAILY [facility] Last Admin: 08/18/17 08:47 Dose: 81 mg Collagenase (Santyl) 1 applic TOP DAILY [facility] Last Admin: 08/18/17 08:48 Dose: 1 applic Doxercalciferol (Hectorol) 2 mcg IV [facility] [place] [facility] Last Admin: 08/18/17 18:49 Dose: 2 mcg Epoetin Tyrell (Procrit) 4,000 unit SC [facility] [place] [facility] Last Admin: 08/18/17 18:53 Dose: 4,000 unit Heparin Sodium (Porcine) (Heparin) 5,000 units SC Q8 [facility] PRN Reason: Protocol Last Admin: 08/19/17 02:04 Dose: 5,000 units Cefepime HCl 1 gm/ Sodium (Chloride) 100 mls @ 100 mls/hr IVPB DAILY [facility] PRN Reason: Protocol Last Admin: 08/18/17 08:47 Dose: 100 mls/hr Vancomycin HCl 1 gm/ Sodium (Chloride) 250 mls @ 125 mls/hr IVPB [facility] [place] [facility] PRN Reason: Protocol Last Admin: 08/18/17 21:03 Dose: 125 mls/hr Phenylephrine HCl 10 mg/ (Sodium Chloride) 251 mls @ 30.12 mls/hr IV .Q8H20M [facility]; 20 MCG/MIN PRN Reason: Protocol Last Titration: 08/19/17 02:40 Dose: 180 mcg/min, 271.08 mls/hr Vasopressin 100 units/ Sodium (Chloride) 105 mls @ 1.89 mls/hr IV .Q24H [facility]; 0.03 UNITS/MIN PRN Reason: Protocol Last Admin: 08/19/17 01:57 Dose: 0.03 units/min, 1.89 mls/hr Epinephrine HCl 1 mg/ Sodium (Chloride) 251 mls @ 15.06 mls/hr IVPB .[id number] ONE; 1 MCG/MIN PRN Reason: Protocol Stop: 08/19/17 19:41 Last Admin: 08/19/17 03:24 Dose: 15.06 mls/hr Latanoprost (Xalatan Opht) 1 drop OU DAILY [facility] Last Admin: 08/18/17 12:28 Dose: 1 drop Loratadine (Claritin Oral Soln 1mg/Ml) 10 mg PEG DAILY [facility] Last Admin: 08/18/17 08:46 Dose: 10 mg Pantoprazole Sodium (Protonix Susp) 40 mg PO DAILY [facility] Last Admin: 08/18/17 08:46 Dose: 40 mg - Labs Labs: 08/18/17 04:40 08/18/17 21:26 PT 12.0 Seconds (9.8-13.1) 08/17/17 03:50 INR 1.1 (0.9-1.2) 08/17/17 03:50 APTT 32.0 Seconds (25.6-37.1) 08/17/17 03:50
--- NOTE | 2017-08-19 04:09 | CP.PCM.PRO ---
Pronouncement of Note - Clinical Findings Physical Exam: No Response Verbal/Painful Stimuli, Absent Peripheral Pulses{ Carotid & Femoral}, Absent Heart & Breath Sounds, No Pupillary Light Reflex, No Corneal Reflex, Pupils Fixed & Dilated, Absence of Vital Signs - Pronouncement Time Time of Pronouncement of : 03:57 - Notifications Pronouncement Notifications: Family Notified, Atending Notified Heater Installer Notified: No - Autopsy Autopsy Requested: No - [place] [id number] Additional Comments: The patient was coded twice and the family was present.
[2017-08-19 04:41] VITALS: TEMP 98.7
--- NOTE | 2017-08-19 09:56 | RAD ---
HISTORY: s/p intubation COMPARISON: Chest radiograph dated 08/17/2017 FINDINGS: LUNGS: Worsening pulmonary vascular congestion/edema. PLEURA: No significant pleural effusion identified, no pneumothorax apparent. CARDIOVASCULAR: Cardiomediastinal silhouette stably enlarged. OSSEOUS STRUCTURES: Unchanged. VISUALIZED UPPER ABDOMEN: Normal. OTHER FINDINGS: Interval intubation with tip between the clavicles and odette. Right internal jugular access tunneled hemodialysis catheter redemonstrated. IMPRESSION: Status post placement of endotracheal tube in satisfactory position. Worsening pulmonary vascular congestion/edema.
--- NOTE | 2017-08-19 13:29 | CP.PCM.DIS ---
Provider - Provider Date of Admission: 08/17/17 04:58 Attending physician: Elliot Blair MD Primary care physician: Elliot Blair MD Consults: 08/17/17 06:36 Wound Care [Nursing Referral for Wound Care] Routine Comment: Physician Instructions: Reason For Exam: skin breakdown buttocks/lower back 08/17/17 07:26 Social Work Referral Routine Comment: HD Patient Physician Instructions: Reason For Exam: HD Patient Time Spent in preparation of Discharge (in minutes): 35 Diagnosis - Discharge Diagnosis (1) VASILIY (acute kidney injury) Status: Acute (2) Acute respiratory failure with hypoxia Status: Acute (3) Anemia Status: Acute (4) Cardiac dysrhythmia Status: Acute (5) DVT prophylaxis Status: Acute (6) Dehydration Status: Acute (7) ESRD (end stage renal disease) on dialysis Status: Acute (8) Elevated troponin Status: Acute (9) Fever Status: Acute (10) Pneumonia Status: Acute (11) Sepsis Status: Acute (12) Septic shock Status: Acute Hospital Course - Lab Results Lab Results: Micro Results 08/17/17 05:00 Blood Blood Culture - Preliminary NO GROWTH AFTER 48 HOURS 08/17/17 03:50 Blood Blood Culture - Preliminary NO GROWTH AFTER 48 HOURS 08/17/17 07:20 Nose MRSA Culture (Admit) - Final Most Recent Lab Values WBC 6.7 K/uL (4.8-10.8) 08/18/17 04:40 RBC 3.65 Mil/uL (3.80-5.20) L 08/18/17 04:40 Hgb 10.8 g/dL (12.0-16.0) L D 08/18/17 04:40 Hct 34.5 % (34.0-47.0) 08/18/17 04:40 MCV 94.6 fl (81.0-99.0) D 08/18/17 04:40 MCH 29.7 pg (27.0-31.0) 08/18/17 04:40 MCHC 31.4 g/dL (33.0-37.0) L 08/18/17 04:40 RDW 20.7 % (11.5-14.5) H 08/18/17 04:40 Plt Count 189 K/uL (130-400) 08/18/17 04:40 MPV 9.8 fl (7.2-11.7) 08/18/17 04:40 Neut % (Auto) 72.6 % (50.0-75.0) 08/18/17 04:40 Lymph % (Auto) 5.4 % (20.0-40.0) L 08/18/17 04:40 [place] % (Auto) 14.9 % (0.0-10.0) H 08/18/17 04:40 Eos % (Auto) 6.5 % (0.0-4.0) H 08/18/17 04:40 Baso % (Auto) 0.6 % (0.0-2.0) 08/18/17 04:40 Neut # 4.9 K/uL (1.8-7.0) 08/18/17 04:40 Lymph # 0.4 K/uL (1.0-4.3) L 08/18/17 04:40 [place] # 1.0 K/uL (0.0-0.8) H 08/18/17 04:40 Eos # 0.4 K/uL (0.0-0.7) 08/18/17 04:40 Baso # 0.0 K/uL (0.0-0.2) 08/18/17 04:40 Neutrophils % (Manual) 79 % (42-75) H 08/17/17 03:50 Band Neutrophils % 2 % (0-2) 08/17/17 03:50 Lymphocytes % (Manual) 7 % (20-50) L 08/17/17 03:50 Monocytes % (Manual) 9 % (0-10) 08/17/17 03:50 Eosinophils % (Manual) 3 % (0-7) 08/17/17 03:50 Toxic Granulation Present 08/17/17 03:50 Platelet Estimate Normal (NORMAL) 08/17/17 03:50 Anisocytosis (manual) Slight 08/17/17 03:50 PT 12.0 Seconds (9.8-13.1) 08/17/17 03:50 INR 1.1 (0.9-1.2) 08/17/17 03:50 APTT 32.0 Seconds (25.6-37.1) 08/17/17 03:50 pCO2 51 mm/Hg (35-45) H 08/19/17 00:20 pO2 36 mm/Hg (80-100) L* 08/19/17 00:20 HCO3 9.7 mmol/L (21-28) L* 08/19/17 00:20 ABG pH 7.01 (7.35-7.45) L* 08/19/17 00:20 ABG Total CO2 14.5 mmol/L (22-28) L 08/19/17 00:20 ABG O2 Saturation 57.1 % (95-98) L 08/19/17 00:20 ABG O2 Content 10.1 ML/dL (15-23) L 08/19/17 00:20 ABG Base Excess -18.1 mmol/L (-2.0-3.0) L 08/19/17 00:20 ABG Hemoglobin 13.0 g/dL (11.7-17.4) 08/19/17 00:20 ABG Carboxyhemoglobin 1.7 % (0.5-1.5) H 08/19/17 00:20 POC ABG HHb (Measured) 41.4 % (0.0-5.0) H 08/19/17 00:20 ABG Methemoglobin 1.7 % (0.0-3.0) 08/19/17 00:20 ABG O2 Capacity 17.7 mL/dL (16-24) 08/19/17 00:20 Romeo Test Yes 08/19/17 00:20 VBG pH 7.42 (7.32-7.43) 08/17/17 08:09 VBG pCO2 37 mmHg (40-60) L 08/17/17 08:09 VBG HCO3 24.4 mmol/L 08/17/17 08:09 VBG Total CO2 25.1 mmol/L (22-28) 08/17/17 08:09 VBG O2 Sat (Calc) 86.9 % (40-65) H 08/17/17 08:09 VBG Base Excess -0.2 mmol/L (0.0-2.0) L 08/17/17 08:09 VBG Potassium 3.3 mmol/L (3.6-5.2) L 08/17/17 08:09 A-a O2 Difference 185.0 mm/Hg 08/19/17 00:20 Hgb O2 Saturation 55.2 % (95.0-98.0) L 08/19/17 00:20 Sodium 139.0 mmol/L (132-148) 08/17/17 08:09 Chloride 105.0 mmol/L (98-107) 08/17/17 08:09 Glucose 150 mg/dL (65-105) H 08/17/17 08:09 Lactate 2.1 mmol/L (0.7-2.1) 08/17/17 08:09 Vent Mode A/c 08/19/17 00:20 Mechanical Rate 14 08/19/17 00:20 FiO2 40.0 % 08/19/17 00:20 Tidal Volume 500 08/19/17 00:20 PEEP 5 08/19/17 00:20 Crit Value Called To Dr rudi newby 08/19/17 00:20 Crit Value Called By Cortez 08/19/17 00:20 Crit Value Read Back Y 08/19/17 00:20 Blood Gas Notified Time 22 08/19/17 00:20 Sodium 137 mmol/l (132-148) 08/18/17 21:26 Potassium 3.6 MMOL/L (3.6-5.0) 08/18/17 21:26 Chloride 98 mmol/L (98-107) 08/18/17 21:26 Carbon Dioxide 24 mmol/L (22-30) 08/18/17 21:26 Anion Gap 19 (10-20) 08/18/17 21:26 BUN 31 mg/dl (7-17) H 08/18/17 21:26 Creatinine 1.8 mg/dl (0.7-1.2) H 08/18/17 21:26 Est GFR ( Amer) 33 08/18/17 21:26 Est GFR (Non-Af Amer) 27 08/18/17 21:26 POC Glucose (mg/dL) 137 mg/dL (65-110) H 08/17/17 03:42 Random Glucose 113 mg/dL (65-105) H 08/18/17 21:26 Lactic Acid 2.4 MMOL/L (0.7-2.1) H 08/17/17 07:20 Calcium 8.5 mg/dL (8.4-10.2) 08/18/17 21:26 Phosphorus 2.3 mg/dl (2.5-4.5) L 08/18/17 21:26 Magnesium 2.0 MG/DL (1.6-2.3) 08/18/17 21:26 Total Bilirubin 0.3 mg/dl (0.2-1.3) 08/18/17 21:26 AST 176 U/L (14-36) H 08/18/17 21:26 ALT 149 U/L (9-52) H 08/18/17 21:26 Alkaline Phosphatase 322 U/L (38-126) H D 08/18/17 21:26 Troponin I 0.5290 ng/mL (0.00-0.120) H* 08/18/17 17:26 Total Protein 6.2 G/DL (6.3-8.2) L 08/18/17 21:26 Albumin 2.8 g/dL (3.5-5.0) L 08/18/17 21:26 Globulin 3.3 gm/dL (2.2-3.9) 08/18/17 21:26 Albumin/Globulin Ratio 0.8 (1.0-2.1) L 08/18/17 21:26 Venous Blood Potassium 3.3 mmol/L (3.6-5.2) L 08/17/17 08:09 Influenza Typ A,B (EIA) Negative for flu a/b (NEGATIVE) 08/17/17 08:21 - Hospital Course Hospital Course: patient Discharge Exam - Head Exam Head Exam: ATRAUMATIC, NORMOCEPHALIC Discharge Plan - Follow Up Plan Condition: CRITICAL Disposition: WITH WITHOUT AUTOPSY Referrals: Elliot Blair MD [Primary Care Provider] -
--- NOTE | 2017-08-20 10:06 | CARD ---
APPROVED REPORT EKG Measurement Heart [id number] <Conclusion> Sinus tachycardia with frequent premature ventricular complexes Left anterior fascicular block Left ventricular hypertrophy with repolarization abnormality Possible Lateral infarct, age undetermined Abnormal ECG
[2017-08-21] MEDS ORDERED: Doxercalciferol 4 mcg/2 ml Inj IV SCH (09:00)
[2017-08-21] MEDS ORDERED: Epoetin Alfa 4000 UNIT/ML Inj SC SCH (09:00)
== END 2017-08-19 03:57 | DRG 584 ==
LOC: H.ER 03:20 → H.ERHOLD 04:58 → H.ICU/CCU 06:31
PROVIDERS: ADMIT Internal Medicine Pulmonary Disease; ATTEND Internal Medicine Pulmonary Disease
PROC: 06HN33Z Insertion of Infusion Device into Left Femoral Vein, Percutaneous Approach (ICD-10-PCS; principal; 2017-08-17)
PROC: 5A1935Z Respiratory Ventilation, Less than 24 Consecutive Hours (ICD-10-PCS; 2017-08-19)
PROC: 0BH17EZ Insertion of Endotracheal Airway into Trachea, Via Natural or Artificial Opening (ICD-10-PCS; 2017-08-19)
DX: A41.9 Sepsis, unspecified organism (principal); N17.9 Acute kidney failure, unspecified; J69.0 Pneumonitis due to inhalation of food and vomit; J96.01 Acute respiratory failure with hypoxia; R65.21 Severe sepsis with septic shock; I13.2 Hypertensive heart and chronic kidney disease with heart failure and with stage 5 chronic kidney disease, or end stage renal disease; L89.150 Pressure ulcer of sacral region, unstageable; E11.22 Type 2 diabetes mellitus with diabetic chronic kidney disease; D69.6 Thrombocytopenia, unspecified; I50.30 Unspecified diastolic (congestive) heart failure; I42.9 Cardiomyopathy, unspecified; N18.6 End stage renal disease; F03.90 Unspecified dementia, unspecified severity, without behavioral disturbance, psychotic disturbance, mood disturbance, and anxiety; I46.9 Cardiac arrest, cause unspecified; Z93.1 Gastrostomy status; E86.0 Dehydration; Z99.2 Dependence on renal dialysis; Y95 Nosocomial condition; M06.9 Rheumatoid arthritis, unspecified; L29.9 Pruritus, unspecified; E86.1 Hypovolemia; Z74.01 Bed confinement status